=== PATIENT | female | born 1935 | race Caucasian/White ===

== ENCOUNTER → 2016-04-17 | Outpatient (REF) | payer MEDICARE, OTHER ==
[~2016-04-17] MED LIST: /WARF25TA PO; ASPI325T PO; ASPI81TA83 OR; ATEN50TA2 OR; ATEN50TA2 PO; DETR4CAP OR; DETR4CAP10 PO; HYDR10T PO; HYDR25TA8 OR; LASI20TA PO; LEVO2TA PO; MILKSUS PO; OXYC10TA56 OR; PERC5TAB6 PO; PERC5TAB8 OR; PERC5TAB8 PO; PERC7.5T8 PO; TYL PO; VITA200028 PO; XANA0.25 OR; XANA0.25 PO; XARE20TA PO; biofreeze TOP; synthroid
[2016-04-17 16:03] LABS: CREATININE FOR GFR 1.02 MG/DL (0.55-1.02); GLOMERULAR FILTRATION RATE 55.7 (>39)
== END ==
LOC: M LABDRAW1 15:32
PROVIDERS: ATTEND Physical Medicine & Rehabilitation
DX: M47.896 Other spondylosis, lumbar region (principal)

== ENCOUNTER → 2016-10-18 | Outpatient (REF) | payer MEDICARE, OTHER ==
[~2016-10-18] MED LIST changes: +AVEL1TAB3 PO; +DETR4CAP PO; -DETR4CAP10 PO; +DRIS50002 PO; +ELIQ2.5T PO; +FURO20TA2 PO; +HYDR-643 PO; -HYDR10T PO; +LEVO25TA5 PO; +PERC5TAB12 PO; -PERC5TAB6 PO; +PRIL20TA2 PO; +TOLT1CAP; +UNKNOWN ANTIBIOTIC PB
== END ==
LOC: M LAB REF 12:56
PROVIDERS: ATTEND Physician Assistant
DX: N39.0 Urinary tract infection, site not specified (principal)

== ENCOUNTER → 2016-10-31 | Outpatient (REF) | payer MEDICARE, OTHER ==
[2016-10-31 17:57] LABS: INR 1.06
== END ==
LOC: M LABDRAW1 15:46
PROVIDERS: ATTEND Physical Medicine & Rehabilitation
DX: Z01.818 Encounter for other preprocedural examination (principal); M43.16 Spondylolisthesis, lumbar region

== ENCOUNTER → 2016-12-25 | Outpatient (REF) | payer MEDICARE, OTHER ==
[2016-12-25 15:57] LABS: BASO % 0.3 % (0.0-1.0); EOS % 0.3 % (0.0-3.0); IMMATURE GRANULOCYTE % 0.2 % (0-0); LYMPH # 0.4 10^3/uL (1.5-4.5); LYMPH % 6.5 % (24.0-44.0); MEAN CORPUSCULAR HEMOGLOBIN 39.5 pg (27.0-33.0); MEAN CORPUSCULAR HGB CONC 34.8 g/dl (32.0-36.5); MONO # 0.4 10^3/uL (0.0-0.8); MONO % 6.2 % (0.0-5.0); NEUTROPHILS # 5.3 10^3/uL (1.8-7.7); NEUTROPHILS % 86.5 % (36.0-66.0); PLATELET COUNT, AUTOMATED 128 10^3/uL (150-450); RED CELL DISTRIBUTION WIDTH 12.8 % (11.5-14.5); WHITE BLOOD COUNT 6.1 10^3/uL (4.0-10.0)
[2016-12-25 16:08] LABS: ADD MORPHOLOGY? YES; MEAN CORPUSCULAR VOLUME 113.4 fl (80.0-96.0); POSITIVE MORPH POS FLAG
[2016-12-25 16:33] LABS: ALBUMIN 3.6 GM/DL (3.2-5.2); ALKALINE PHOSPHATASE 95 U/L (45-117); ALT/SGPT 16 U/L (12-78); ANION GAP 6 MEQ/L (8-16); AST/SGOT 20 U/L (15-37); BILIRUBIN,TOTAL 2.5 MG/DL (0.2-1.0); BLOOD UREA NITROGEN 13 MG/DL (7-18); CALCIUM LEVEL 8.5 MG/DL (8.8-10.2); CARBON DIOXIDE LEVEL 31 MEQ/L (21-32); CHLORIDE LEVEL 96 MEQ/L (98-107); CREATININE FOR GFR 0.81 MG/DL (0.55-1.02); GLOMERULAR FILTRATION RATE > 60.0 (>32); GLUCOSE, FASTING 86 MG/DL (83-110); POTASSIUM SERUM 4.1 MEQ/L (3.5-5.1); SODIUM LEVEL 133 MEQ/L (136-145); TOTAL PROTEIN 6.6 GM/DL (6.4-8.2)
[2016-12-25 17:23] LABS: ANISOCYTOSIS 2+
== END ==
LOC: M LABDRAW1 14:30
PROVIDERS: ATTEND Family Medicine
DX: E03.9 Hypothyroidism, unspecified (principal); I10 Essential (primary) hypertension

== ENCOUNTER → 2016-12-26 | Outpatient (REF) | payer MEDICARE, OTHER | LOC: M LAB REF 13:09 | PROVIDERS: ATTEND Family Medicine | DX: N39.0 Urinary tract infection, site not specified (principal); R32 Unspecified urinary incontinence ==

== ENCOUNTER → 2017-01-22 | Outpatient (CLI) | payer MEDICARE, OTHER ==
[2017-01-22 16:09] LABS: ALBUMIN 3.5 GM/DL (3.2-5.2); ALBUMIN/GLOBULIN RATIO 1.09 (1.00-1.93); ALKALINE PHOSPHATASE 91 U/L (45-117); ALT/SGPT 15 U/L (12-78); ANION GAP 7 MEQ/L (8-16); AST/SGOT 20 U/L (7-37); BILIRUBIN,TOTAL 1.1 MG/DL (0.2-1.0); BLOOD UREA NITROGEN 14 MG/DL (7-18); CALCIUM LEVEL 8.7 MG/DL (8.8-10.2); CARBON DIOXIDE LEVEL 31 MEQ/L (21-32); CHLORIDE LEVEL 97 MEQ/L (98-107); CREATININE FOR GFR 0.83 MG/DL (0.55-1.02); GLOMERULAR FILTRATION RATE > 60.0 (>32); GLUCOSE, FASTING 96 MG/DL (83-110); POTASSIUM SERUM 3.9 MEQ/L (3.5-5.1); SODIUM LEVEL 135 MEQ/L (136-145); TOTAL PROTEIN 6.7 GM/DL (6.4-8.2)
== END ==
LOC: M LABDRAW1 13:56
PROVIDERS: ATTEND Internal Medicine Cardiovascular Disease
DX: I48.91 Unspecified atrial fibrillation (principal)

== ENCOUNTER → 2017-01-29 | Outpatient (CLI) | payer MEDICARE, OTHER ==
[~2017-01-29] MED LIST changes: +GLUCAGON FOR INJ 1 MG VIAL (J1610) As Ordered ONE; +ISOVUE-370 76% 100ML VIAL (Q9967) As Ordered ONE; +VoLumen 0.1% SUSPENSION 450ML BOTTLE As Ordered ONE
--- NOTE | 2017-01-29 15:12 | REP ---
Clinical: Abnormal findings on prior imaging study. Technique: Axial contrast enhanced images from the lung bases to the pubic symphysis using 100 ml Isovue 370 intravenous contrast material and the oral contrast as per enterography protocol. Coronal and sagittal re-formations obtained. Comparison: 12/29/2016. Findings: Satisfactory intraluminal opacification of the enteric system is appreciated. A large hiatal hernia is identified measuring approximately 8.8 x 5.9 cm diameter and 8.2 cm in craniocaudal length. The small bowel is normal in appearance and without mural thickening or perienteric inflammatory changes. The colon demonstrates scattered diverticulosis and significant sigmoid diverticulosis without evidence for acute diverticulitis. Pelvis demonstrates partially collapsed normal appearing bladder and age-appropriate uterus/adnexa with partially calcified myomatous changes. No free air. No free fluid. Liver, spleen, pancreas, and bilateral adrenal glands are normal. The kidneys demonstrate chronic old cortical atrophic changes but with normal enhancement and no evidence for perinephric stranding or hydroureteronephrosis. The patient is status post cholecystectomy with compensatory biliary ductal dilatation. No ascites. No free air. No adenopathy. Musculoskeletal structures demonstrate degenerative changes without focal osseous abnormality. Atherosclerotic changes to the vasculature noted without aneurysm. Lung bases demonstrate chronic fibroatelectatic changes and scarring. Impression: 1. With the exception of diffuse diverticulosis and large hiatal hernia, the enteric system is grossly unremarkable. 2. Cholecystectomy and compensatory biliary ductal dilatation. 3. Degenerating myomatous changes to the uterus. 4. No acute abdominopelvic pathology. No free fluid. No adenopathy. Signed by Jason Matos MD 01/29/2017 03:03 P
== END ==
LOC: M RAD 13:04
PROVIDERS: ATTEND Internal Medicine Gastroenterology
DX: R93.3 Abnormal findings on diagnostic imaging of other parts of digestive tract (principal)
CPT/HCPCS: 74177; J1610; Q9967

== ENCOUNTER → 2017-02-17 | Outpatient (REF) | payer MEDICARE, OTHER ==
[~2017-02-17] MED LIST changes: -GLUCAGON FOR INJ 1 MG VIAL (J1610) As Ordered ONE; -ISOVUE-370 76% 100ML VIAL (Q9967) As Ordered ONE; -VoLumen 0.1% SUSPENSION 450ML BOTTLE As Ordered ONE
[2017-02-17 15:40] LABS: BASO % 1.3 % (0.0-1.0); EOS # 0.2 10^3/uL (0.0-0.50); EOS % 4.7 % (0.0-3.0); IMMATURE GRANULOCYTE % 0.3 % (0-0); LYMPH # 0.7 10^3/uL (1.5-4.5); LYMPH % 20.9 % (24.0-44.0); MEAN CORPUSCULAR HEMOGLOBIN 36.2 pg (27.0-33.0); MEAN CORPUSCULAR HGB CONC 34.3 g/dl (32.0-36.5); MEAN CORPUSCULAR VOLUME 105.5 fl (80.0-96.0); MONO # 0.4 10^3/uL (0.0-0.8); MONO % 12.7 % (0.0-5.0); NEUTROPHILS # 1.9 10^3/uL (1.8-7.7); NEUTROPHILS % 60.1 % (36.0-66.0); PLATELET COUNT, AUTOMATED 143 10^3/uL (150-450); RED CELL DISTRIBUTION WIDTH 15.6 % (11.5-14.5); RETIC HEMOGLOBIN EQUIVALENT 42.7 pg (24-36); RETICULOCYTE % 1.5 % (0.5-1.5); WHITE BLOOD COUNT 3.2 10^3/uL (4.0-10.0)
[2017-02-17 16:08] LABS: PERCENT SATURATION 56.3 % (13.2-45.0)
== END ==
LOC: M LABDRAW1 15:11
PROVIDERS: ATTEND Family Medicine
DX: D64.9 Anemia, unspecified (principal)

== ENCOUNTER 2017-09-20 17:39 | Emergency (ER) | payer MEDICARE, OTHER ==
[2017-09-20 18:58] LABS: BASO # 0.1 10^3/uL (0.0-0.2); BASO % 1.2 % (0.0-1.0); EOS # 0.1 10^3/uL (0.0-0.50); EOS % 1.4 % (0.0-3.0); HEMATOCRIT 36.1 % (36.0-47.0); HEMOGLOBIN 12.8 g/dl (12.0-15.5); IMMATURE GRANULOCYTE % 0.2 % (0-3.0); LYMPH # 0.5 10^3/uL (1.5-4.5); LYMPH % 9.5 % (24.0-44.0); MEAN CORPUSCULAR HGB CONC 35.5 g/dl (32.0-36.5); MEAN CORPUSCULAR VOLUME 104.3 fl (80.0-96.0); MONO # 0.4 10^3/uL (0.0-0.8); MONO % 7.5 % (0.0-5.0); NEUTROPHILS # 4.1 10^3/uL (1.8-7.7); NEUTROPHILS % 80.2 % (36.0-66.0); PLATELET COUNT, AUTOMATED 173 10^3/uL (150-450); RED BLOOD COUNT 3.46 10^6/uL (4.00-5.40); RED CELL DISTRIBUTION WIDTH 13.2 % (11.5-14.5); WHITE BLOOD COUNT 5.1 10^3/uL (4.0-10.0)
[2017-09-20 19:15] LABS: INR 1.11; PROTHROMBIN TIME 14.4 SECONDS (12.1-14.4)
[2017-09-20 19:27] LABS: ANION GAP 7 MEQ/L (8-16); BLOOD UREA NITROGEN 19 MG/DL (7-18); CALCIUM LEVEL 8.3 MG/DL (8.8-10.2); CARBON DIOXIDE LEVEL 29 MEQ/L (21-32); CHLORIDE LEVEL 96 MEQ/L (98-107); CPK CREATINE PHOSPHOKINASE 277 U/L (26-192); CREATININE FOR GFR 1.06 MG/DL (0.55-1.30); FREE T4 1.12 NG/DL (0.76-1.46); GLOMERULAR FILTRATION RATE 53.1 (>32); GLUCOSE, FASTING 104 MG/DL (70-100); MAGNESIUM LEVEL 1.6 MG/DL (1.8-2.4); POTASSIUM SERUM 4.1 MEQ/L (3.5-5.1); SODIUM LEVEL 132 MEQ/L (136-145); TROPONIN I < 0.02 NG/ML (< 0.10)
[2017-09-20 19:33] LABS: CK-MB VALUE MASS 4.2 NG/ML (<3.6); MB/CK RELATIVE INDEX 1.51 (< OR =4)
[2017-09-20] MEDS: MAGNESIUM OXIDE 400 MG TAB (MAG-OX) PO (20:51)
== END 2017-09-20 23:33 | disposition home or self-care (01) ==
LOC: M ED 23:33
DX: S00.83XA Contusion of other part of head, initial encounter (principal); S90.31XA Contusion of right foot, initial encounter; S80.01XA Contusion of right knee, initial encounter; E83.42 Hypomagnesemia; R26.9 Unspecified abnormalities of gait and mobility; W19.XXXA Unspecified fall, initial encounter; Y92.098 Other place in other non-institutional residence as the place of occurrence of the external cause; I48.91 Unspecified atrial fibrillation; I10 Essential (primary) hypertension; E07.9 Disorder of thyroid, unspecified; F41.9 Anxiety disorder, unspecified; M19.90 Unspecified osteoarthritis, unspecified site; M51.9 Unspecified thoracic, thoracolumbar and lumbosacral intervertebral disc disorder; Z88.5 Allergy status to narcotic agent; Z88.8 Allergy status to other drugs, medicaments and biological substances; Z91.018 Allergy to other foods; Z79.899 Other long term (current) drug therapy; Z79.01 Long term (current) use of anticoagulants
CPT/HCPCS: 73564

== ENCOUNTER → 2017-10-03 | Outpatient (REF) | payer MEDICARE, OTHER ==
[2017-10-03 17:04] LABS: ANION GAP 9 MEQ/L (8-16); BLOOD UREA NITROGEN 19 MG/DL (7-18); CALCIUM LEVEL 8.9 MG/DL (8.8-10.2); CARBON DIOXIDE LEVEL 30 MEQ/L (21-32); CHLORIDE LEVEL 100 MEQ/L (98-107); CREATININE FOR GFR 1.21 MG/DL (0.55-1.30); GLOMERULAR FILTRATION RATE 45.6 (>32); GLUCOSE, FASTING 95 MG/DL (70-100); MAGNESIUM LEVEL 1.8 MG/DL (1.8-2.4); POTASSIUM SERUM 4.1 MEQ/L (3.5-5.1); SODIUM LEVEL 139 MEQ/L (136-145)
== END ==
LOC: M LABDRAW1 15:16
DX: R60.0 Localized edema (principal)
CPT/HCPCS: 83735

== ENCOUNTER → 2018-02-19 | Outpatient (CLI) | payer MEDICARE, OTHER ==
[2018-02-19 16:57] LABS: ANION GAP 7 MEQ/L (8-16); BLOOD UREA NITROGEN 21 MG/DL (7-18); CALCIUM LEVEL 8.5 MG/DL (8.8-10.2); CARBON DIOXIDE LEVEL 30 MEQ/L (21-32); CHLORIDE LEVEL 103 MEQ/L (98-107); CREATININE FOR GFR 0.92 MG/DL (0.55-1.30); GLOMERULAR FILTRATION RATE > 60.0 (>32); GLUCOSE, FASTING 81 MG/DL (70-100); SODIUM LEVEL 140 MEQ/L (136-145)
[2018-02-19 17:10] LABS: BASO # 0.1 10^3/uL (0.0-0.2); BASO % 1.2 % (0.0-1.0); EOS # 0.1 10^3/uL (0.0-0.50); EOS % 1.4 % (0.0-3.0); HEMATOCRIT 40.8 % (36.0-47.0); HEMOGLOBIN 13.3 g/dl (12.0-15.5); IMMATURE GRANULOCYTE % 0.5 % (0-3.0); LYMPH # 1.3 10^3/uL (1.5-4.5); LYMPH % 31.2 % (24.0-44.0); MEAN CORPUSCULAR HEMOGLOBIN 32.2 pg (27.0-33.0); MEAN CORPUSCULAR HGB CONC 32.6 g/dl (32.0-36.5); MEAN CORPUSCULAR VOLUME 98.8 fl (80.0-96.0); MONO # 0.6 10^3/uL (0.0-0.8); MONO % 13.4 % (0.0-5.0); NEUTROPHILS # 2.2 10^3/uL (1.8-7.7); NEUTROPHILS % 52.3 % (36.0-66.0); PLATELET COUNT, AUTOMATED 202 10^3/uL (150-450); RED BLOOD COUNT 4.13 10^6/uL (4.00-5.40); RED CELL DISTRIBUTION WIDTH 13.4 % (11.5-14.5); WHITE BLOOD COUNT 4.2 10^3/uL (4.0-10.0)
== END ==
LOC: M WUC 13:17
DX: J98.4 Other disorders of lung (principal); I51.7 Cardiomegaly; K46.9 Unspecified abdominal hernia without obstruction or gangrene; M51.34 Other intervertebral disc degeneration, thoracic region; M85.88 Other specified disorders of bone density and structure, other site; J06.9 Acute upper respiratory infection, unspecified; Z96.611 Presence of right artificial shoulder joint
CPT/HCPCS: 80048

== ENCOUNTER 2018-10-27 20:03 | Emergency (ER) | payer MEDICARE, OTHER ==
[~2018-10-27] VITALS: Ht 149.9 cm; Wt 61.4 kg
[~2018-10-27 20:03] MED LIST changes: -/WARF25TA PO; +ASPI-1 PO; -ASPI325T PO; +COUM1TAB18 PO; -DRIS50002 PO; +DRIS50003 PO; -LASI20TA PO; +LASI20TA3 PO; -TOLT1CAP; +TOLT4CAP3
[2018-10-27 21:43] LABS: BASO % 0.6 % (0.0-1.0); EOS # 0.1 10^3/uL (0.0-0.50); EOS % 1.2 % (0.0-3.0); HEMATOCRIT 42.1 % (36.0-47.0); LYMPH # 0.6 10^3/uL (1.5-4.5); LYMPH % 12.2 % (24.0-44.0); MEAN CORPUSCULAR HEMOGLOBIN 34.9 pg (27.0-33.0); MEAN CORPUSCULAR HGB CONC 33.3 g/dl (32.0-36.5); MONO # 0.4 10^3/uL (0.0-0.8); MONO % 7.6 % (0.0-5.0); NEUTROPHILS # 3.9 10^3/uL (1.8-7.7); PLATELET COUNT, AUTOMATED 140 10^3/uL (150-450); RED BLOOD COUNT 4.01 10^6/uL (4.00-5.40)
[2018-10-27 21:54] LABS: INR 1.29; PROTHROMBIN TIME 15.8 SECONDS (11.8-14.0)
[2018-10-27 22:08] LABS: ALBUMIN 3.5 GM/DL (3.2-5.2); ALT/SGPT 13 U/L (12-78); BILIRUBIN,DIRECT 0.4 MG/DL (0.0-0.2); BILIRUBIN,TOTAL 1.1 MG/DL (0.2-1.0); BLOOD UREA NITROGEN 30 MG/DL (7-18); CALCIUM LEVEL 9.1 MG/DL (8.8-10.2); CARBON DIOXIDE LEVEL 34 MEQ/L (21-32); CHLORIDE LEVEL 93 MEQ/L (98-107); CK-MB VALUE MASS < 1.0 NG/ML (<3.6); CPK CREATINE PHOSPHOKINASE 45 U/L (26-192); CREATININE FOR GFR 1.96 MG/DL (0.55-1.30); GLUCOSE, FASTING 107 MG/DL (70-100); MB/CK RELATIVE INDEX 2.22 (< OR =4); POTASSIUM SERUM 4.1 MEQ/L (3.5-5.1); SODIUM LEVEL 135 MEQ/L (136-145); TOTAL PROTEIN 6.8 GM/DL (6.4-8.2); TROPONIN I < 0.02 NG/ML (< 0.10)
[2018-10-27] MEDS ORDERED: NS 1,000 ML IV ONE (22:30)
--- NOTE | 2018-10-27 22:38 | REPVR ---
EXAM: CT Chest Without Contrast EXAM DATE/TIME: 10/27/2018 10:00 PM CLINICAL HISTORY: 83 years old, female; Injury or trauma; Fall; Initial encounter; Blunt trauma (contusions or hematomas); Injury details: Pain in the left side of ribs and t-spine TECHNIQUE: Imaging protocol: Axial computed tomography images of the chest without intravenous contrast. 3D rendering: MIP reconstructed images were created and reviewed. Radiation optimization: All CT scans at this facility use at least one of these dose optimization techniques: automated exposure control; mA and/or kV adjustment per patient size (includes targeted exams where dose is matched to clinical indication); or iterative reconstruction. COMPARISON: CT ANGIO CHEST 12/29/2016 5:40 PM FINDINGS: Lungs: Mild bibasilar fibro-atelectatic change, left greater than right with question of minimal left base infiltrates. Pleural space: Unremarkable. No pneumothorax. No pleural effusion. Heart: The left atrium measures 5.0 cm in its AP dimension. Mediastinum: Large hiatal hernia. Pulmonary arteries: The main pulmonary artery measures 29 mm. Aorta: The ascending thoracic aorta measures 33 mm. Lymph nodes: Unremarkable. No enlarged lymph nodes. Bones/joints: Prosthetic right humeral head. Degenerative changes of the thoracic spine with areas of segmental ankylosis or congenital fusion. No compression fracture is seen. Soft tissues: Irregular nodule with stranding in the left breast which is slightly increased since the prior study measuring approximately 2.2 x 1.9 x 2.4 cm. Gallbladder and bile ducts: Status post cholecystectomy. IMPRESSION: 1. Decreased bibasilar infiltrates since 12/29/2016. Mild residual bibasilar fibro-atelectatic change remains, left greater than right with question of minimal left base infiltrates. 2. Irregular left breast nodule measuring 2.2 x 1.9 x 2.4 cm which appears increased since the prior study. Correlation with mammography may be of benefit. 3. Large hiatal hernia which is similar. 4. Status post cholecystectomy. 5. Mild cardiomegaly which is similar. 6. Degenerative changes of the thoracic spine with areas of segmental ankylosis or congenital fusion. Electronically signed by: Simone Myers On 10/27/2018 22:38:12 PM
[2018-10-28 00:18] VITALS: BP 136/79
--- NOTE | 2018-10-28 08:22 | REP ---
PA and lateral chest: Comparison is 02/19/2018. There is no pneumothorax, hemothorax or pulmonary contusion. There is a small linear parenchymal scar peripherally in the left lung, unchanged. There is a large fixed hiatal hernia containing an air-fluid level, unchanged. The the Cardiac size appears enlarged, unchanged. The robyn and mediastinum are unremarkable. Bony thorax demonstrates diffuse demineralization and right shoulder arthroplasty, but are otherwise unremarkable. Impression: There are no acute cardiopulmonary findings. There are chronic changes as described. Electronically Signed by Daniel Cheema MD 10/28/2018 08:14 A
--- NOTE | 2018-10-28 10:47 | ED PDOC ---
Post-Departure Follow-Up ct chest faxed to dr angela for fu of all findings. Alisha Mcintyre MD Oct 28, 2018 10:47
== END 2018-10-28 00:26 | disposition home or self-care (01) ==
LOC: M ED 20:03
DX: S20.222A Contusion of left back wall of thorax, initial encounter (principal); W19.XXXA Unspecified fall, initial encounter; Y92.096 Garden or yard of other non-institutional residence as the place of occurrence of the external cause; R94.6 Abnormal results of thyroid function studies; I10 Essential (primary) hypertension; G47.33 Obstructive sleep apnea (adult) (pediatric); Z88.8 Allergy status to other drugs, medicaments and biological substances; Z88.5 Allergy status to narcotic agent; Z91.018 Allergy to other foods; Z79.899 Other long term (current) drug therapy; Z79.01 Long term (current) use of anticoagulants

== ENCOUNTER → 2019-01-08 | Outpatient (REF) | payer MEDICARE, OTHER ==
[2019-01-08 15:43] LABS: BASO # 0.1 10^3/uL (0.0-0.2); BASO % 1.2 % (0.0-1.0); EOS # 0.1 10^3/uL (0.0-0.5); EOS % 1.8 % (0.0-3.0); HEMATOCRIT 37.5 % (36.0-47.0); HEMOGLOBIN 12.5 g/dl (12.0-15.5); LYMPH # 1.2 10^3/uL (1.5-5.0); LYMPH % 20.3 % (24.0-44.0); MEAN CORPUSCULAR HEMOGLOBIN 35.6 pg (27.0-33.0); MEAN CORPUSCULAR HGB CONC 33.3 g/dl (32.0-36.5); MEAN CORPUSCULAR VOLUME 106.8 fl (80.0-96.0); MONO # 0.5 10^3/uL (0.0-0.8); MONO % 8.8 % (0.0-5.0); NEUTROPHILS # 3.8 10^3/uL (1.5-8.5); NEUTROPHILS % 67.5 % (36.0-66.0); PLATELET COUNT, AUTOMATED 133 10^3/uL (150-450); RED BLOOD COUNT 3.51 10^6/uL (4.00-5.40); WHITE BLOOD COUNT 5.7 10^3/uL (4.0-10.0)
[2019-01-08 15:53] LABS: CHOLESTEROL RISK RATIO 2.506 (<5); THYROID STIMULATING HORMONE 3.96 uIU/ML (0.358-3.740)
[2019-01-08 16:15] LABS: HEMOGLOBIN A1c 4.7 %
== END ==
LOC: M LABDRAW1 13:29
PROVIDERS: ATTEND Family Medicine
DX: I10 Essential (primary) hypertension (principal); E03.9 Hypothyroidism, unspecified

== ENCOUNTER → 2019-04-20 | Outpatient (REF) | payer MEDICARE, OTHER ==
[2019-04-20 18:52] LABS: FREE T4 1.21 NG/DL (0.76-1.46); THYROID STIMULATING HORMONE 6.3 uIU/ML (0.358-3.740)
== END ==
LOC: M LABDRAW1 17:00
PROVIDERS: ATTEND Family Medicine
DX: E03.9 Hypothyroidism, unspecified (principal)

== ENCOUNTER → 2019-08-26 | Outpatient (CLI) | payer MEDICARE, OTHER ==
[~2019-08-26] MED LIST changes: +ATEN25TA PO; +BACT800T5 PO; +CIPR-250 PO; +MECL12.590 PO; +MECL25CH45 PO; +OMEP-221 PO; +SULF1TAB93 PO; +SYNT50TA PO; +TOLT4CAP3 PO; +VITA50005 PO
[2019-08-26 16:55] LABS: FREE T4 1.39 NG/DL (0.76-1.46); THYROID STIMULATING HORMONE 1.68 uIU/ML (0.358-3.740)
== END ==
LOC: M WUC 13:17
PROVIDERS: ATTEND Family Medicine
DX: E03.9 Hypothyroidism, unspecified (principal)

== ENCOUNTER 2020-03-18 14:03 | Emergency (ER) | payer MEDICARE, OTHER ==
[~2020-03-18] VITALS: Ht 147.3 cm; Wt 58.2 kg
[~2020-03-18 14:03] MED LIST changes: -ATEN25TA PO; -BACT800T5 PO; -CIPR-250 PO; -MECL12.590 PO; -MECL25CH45 PO; -OMEP-221 PO; -SULF1TAB93 PO; -SYNT50TA PO; -TOLT4CAP3 PO; -VITA50005 PO
[2020-03-18] MEDS ORDERED: MECL25CH45 PO (14:11)
[2020-03-18] MEDS ORDERED: ATEN25TA PO (14:11)
[2020-03-18] MEDS ORDERED: NS 1,000 ML IV ONE (15:15)
--- NOTE | 2020-03-18 15:24 | REP ---
INDICATION: weakness COMPARISON: 10/27/2018 TECHNIQUE: Portable AP view of the chest FINDINGS: The mediastinum and cardiac silhouette are stable and again demonstrates large hiatal hernia. The lung bartlett demonstrate stable chronic changes. No acute consolidation, effusion, or pneumothorax appreciated. Skeletal structures are stable including osteopenia and degenerative changes along with right shoulder replacement. IMPRESSION: Large hiatal hernia and chronic changes similar to prior examination no obvious acute consolidation. <Electronically signed by Jason Matos > 03/18/20 [id number]
[2020-03-18 16:33] LABS: BASO % 0.4 % (0.0-1.0); EOS % 1.1 % (0.0-3.0); HEMATOCRIT 34.8 % (36.0-47.0); HEMOGLOBIN 11.6 g/dl (12.0-15.5); LYMPH # 0.4 10^3/uL (1.5-5.0); LYMPH % 14.9 % (24.0-44.0); MEAN CORPUSCULAR HEMOGLOBIN 36.9 pg (27.0-33.0); MEAN CORPUSCULAR HGB CONC 33.3 g/dl (32.0-36.5); MEAN CORPUSCULAR VOLUME 110.8 fl (80.0-96.0); MONO # 0.2 10^3/uL (0.0-0.8); MONO % 8.2 % (0.0-5.0); NEUTROPHILS # 2.1 10^3/uL (1.5-8.5); RED BLOOD COUNT 3.14 10^6/uL (4.00-5.40); WHITE BLOOD COUNT 2.8 10^3/uL (4.0-10.0)
[2020-03-18 17:05] LABS: ALBUMIN 2.6 GM/DL (3.2-5.2); BILIRUBIN,DIRECT 0.5 MG/DL (0.0-0.2); BILIRUBIN,TOTAL 1.1 MG/DL (0.2-1.0); CALCIUM LEVEL 7.7 MG/DL (8.8-10.2); CREATININE FOR GFR 1.17 MG/DL (0.55-1.30); FREE T4 1.48 NG/DL (0.76-1.46); THYROID STIMULATING HORMONE 1.26 uIU/ML (0.358-3.740); TOTAL PROTEIN 5.7 GM/DL (6.4-8.2)
[2020-03-18] MEDS ORDERED: LIDOCAINE 2% 5ML JELLY UROJET TOP ONE (17:15)
[2020-03-18 17:17] LABS: PLATELET COUNT, AUTOMATED 68 10^3/uL (150-450)
[2020-03-18] MEDS ORDERED: CIPR-250 PO (18:35)
--- NOTE | 2020-03-18 19:20 | ECGEPIP ---
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
[2020-03-18 19:43] VITALS: BP 119/62
== END 2020-03-18 20:06 | disposition home or self-care (01) ==
LOC: M ED 14:03 → EEVIPCON 14:03 → M ED 20:06
DX: N39.0 Urinary tract infection, site not specified (principal); D72.819 Decreased white blood cell count, unspecified; I48.91 Unspecified atrial fibrillation; R94.31 Abnormal electrocardiogram [ECG] [EKG]; R53.1 Weakness; I10 Essential (primary) hypertension; K44.9 Diaphragmatic hernia without obstruction or gangrene; Z79.01 Long term (current) use of anticoagulants; Z79.899 Other long term (current) drug therapy; Z88.5 Allergy status to narcotic agent; Z88.8 Allergy status to other drugs, medicaments and biological substances; Z91.018 Allergy to other foods

== ENCOUNTER 2020-03-24 13:46 | Inpatient (IN) | payer MEDICARE, OTHER ==
[~2020-03-24] VITALS: Ht 149.9 cm; Wt 59.0 kg
[~2020-03-24 13:46] MED LIST changes: +ATEN25TA PO; +CIPR-250 PO; +MECL25CH45 PO
--- OUTSIDE RECORDS SUMMARY | 2020-03-24 14:03 | CCD | Continuity of Care Document ---
Author Author Courtney PORTER M.D Organization Unknown Address [address] [place] [address] Phone [phone] Care Team Providers Care High Value Associate Name Role Phone Eduardo Collins Jr., MD AUTM [phone] Xavier Evans M.D. AUTM [phone] Kael Ritter JR., M.D. AUTM [facility] AUTM Problems Active Problems Provider Date Essential hypertension Ambar Porter M.D. Onset: 07/23 Essential hypertension Ambar Porter M.D. Onset: 12/15 Social History Type Date Description Comments Sex Unknown Tobacco Use Start: Unknown End: Unknown denies cigarette use Tobacco Use Start: Unknown Never Used Smokeless Tobacco ETOH Use Consumes 2 glasses of wine per d ay Tobacco Use Start: Unknown Patient has never smoked Recreational Drug Use Denies Drug Use Smoking Status Reviewed: 11/24/19 Patient has never smoked Exercise Type/Frequency Does not exercise Tattoo/Piercing NOne Sun Exposure Minimum amount of sun exposure Sun Exposure Does not use sunscreen covers wi th long clothing Seat Belt/Car Seat Always uses seat belt Smoke Alarms Yes Smoke Alarms Carbon Monoxide Detector: No Allergies, Adverse Reactions, Alerts Active Allergies Reaction Severity Comments Date Darvocet 04/09/2004 Caffeine 04/09/2004 Lipitor muscle aches and pains 10/30 Codeine Sulfate BP drops and is anaphylac tic 04/04/2008 Ultram hypotyension 01/19/2010 Hair Dye Contact dermatitis, Urticaria, redness and swelling Mo derate 06/15/2014 Xarelto excessive bleeding of gums 0 04/28/2015 Doxycycline severe dizziness 02/23/2018 Medications Active Medications SIG Qnty Indications Ordering Provide r Date Levothyroxine Sodium 50mcg Tablets take one tablet by mouth every day 90tabs E03.9 Ambar Porter M.D. 04/21/2019 Vitamin D (Ergocalciferol) 1.25mg (60021 Ut) Capsules Take One Capsule By Mouth Once a Week 12caps I48.1 Ambar Porter M.D. 02/16/2019 Meclizine HCL 12.5mg Tablets Take One Tablet By Mouth Three Times Daily as Needed For dizziness 90tabs H8 1.10 Ambar Porter M.D. 12/25/2018 Atenolol 25mg Tablets take 2 tablets by mouth every day 180tabs Ambar Porter M.D. 018 Tolterodine Tartrate ER 4mg Caps E R 24HR take one capsule by mouth once daily 90caps N32.81 Katie Burroughs, [facility] 01/09/2015 Xanax 0.25mg Tablets 1 tab by mouth every 6 h as needed 120tabs Ambar Porter M.D. 000 Hydroxyzine HCL 10mg Tablets Take One Tablet By Mouth Every Day 120tabs Ambar Porter M. D. Eliquis 2.5mg Tablets take one tablet by mouth twice daily 180tabs Ambar Porter M.D. Furosemide 20mg Tablets Take One Tablet By Mouth Every Day For Edema of ankles 30tabs Mariola Porter M.D. Omeprazole 40mg Capsules DR take one capsule by mouth every day 90caps Ambar Porter M .D. Immunizations CPT Code Status Date Vaccine Lot # [id number] Given 11/24/2019 Influenza Virus Vaccine, Quadrivalent,age 3 and up,multidose vial [id number] 48786 Given 12/07/2018 Influenza Virus Vaccine, Quadrivalent,age 3 and up,multidose vial 26194 Given 12/07/2018 Influenza Virus Vaccine, Quadrivalent,age 3 and up,multidose vial [id number] 36940 Given 12/03/2017 Influenza Virus Vaccine, Quadrivalent,age 3 and up,multidose vial [id number] 19447 Given 12/31/2016 Prevnar 13 For Adults 98975 Given 12/31/2016 Influenza Virus Vaccine, Quadrivalent,age 3 and up,multidose vial Q2038 Given 12/22/2015 Influenza Vaccine (Fluzone)( medicare) [id number] Q2038 Given 12/22/2015 Influenza Vaccine (Fluzone)( medicare) [id number] 37750 Given 04/20/2015 Prevnar 13 Q2038 Given 11/30/2014 Influenza Vaccine (Fluzone)( medicare) [id number] Q2038 Given 11/29/2013 Influenza Vaccine (Fluzone)( medicare) [id number] 49758 Given 11/19/2012 Influenza Vaccination [id number] Q2038 Given 11/19/2012 Influenza Vaccine (Fluzone)( medicare) Q2038 Given 12/04/2011 Influenza Vaccine (Fluzone)( medicare) 26897 Given 12/04/2011 Influenza Vaccination [id number] Q2038 Given 12/05/2010 Influenza Vaccine (Fluzone)( medicare) 33347 Given 11/07/2010 Zostavax 02942 Given 11/08/2009 Influenza Vaccination [id number] 33490 Given 11/30/2008 Influenza Vaccination [id number] 95696 Given 12/28/2007 Pneumococcal Vaccine [id number] 42953 Given 12/28/2007 Influenza Vaccination [id number] 51384 Given 12/30/2006 Influenza Vaccination [id number] 91777 Given 12/18/2005 Influenza Vaccination [id number] 95102 Given 12/07/2004 Influenza Vaccination [id number] 37369 Given 12/25/2001 Influenza Vaccine Vital Signs Date Vital Result Comment 11/24/2019 3:01pm BP Systolic 145 mmHg BP Diastolic 93 mmHg BP Systolic Recheck 127 mmHg recheck BP Diastolic Recheck 84 mmHg recheck Heart Rate 89 /min Body Temperature 98.2 F Respiratory Rate 18 /min Height 58 inches 4'10" Weight 133.50 lb O2 % BldC Oximetry 98 % [place] Body Weight 100 lb BMI (Body Mass Index) 27.9 kg/m2 09/15/2019 11:06am BP Systolic 147 mmHg BP Diastolic 102 mmHg BP Systolic Recheck 138 mmHg manual re check BP Diastolic Recheck 86 mmHg manual re check Heart Rate 99 /min Body Temperature 98.2 F Respiratory Rate 14 /min Height 58 inches 4'10" Weight 130.12 lb O2 % [facility] Oximetry 98 % [place] Body Weight 100 lb BMI (Body Mass Index) 27.2 kg/m2 Results Test Acquired Date Facility Test Result H/L Range Note Ua W/ Reflex To Culture 03/18/2020 [place] [address] [phone] Appearance, Urine RFX CLOUDY High Clear Color, Urine RFX YELLOW Normal Yellow PH,Urine RFX 5.0 units Normal 5.0-9.0 Specific Elaine Ur Auto RFX 1.010 Normal 1.002-1.035 Protein, Urine Auto RFX NEGATIVE mg/dL Normal Negative Glucose, Urine (Ua) Auto RFX NEGATIVE mg/dL Normal Negative Ketone, Urine Auto RFX TRACE mg/dL High Negative Urobilinogen, Urine Auto RFX 0.2 mg/dL Normal 0.0-2.0 Bilirubin, Urine Auto RFX NEGATIVE Normal Negative Nitrite, Urine Auto RFX NEGATIVE Normal Negative Leukocyte Esterase Ur Auto RFX 3+ High Negative Blood, Urine Blood RFX 1+ High Negative WBC, Urine Auto RFX 120 /HPF High 0-3 RBC, Urine Auto RFX 11 /HPF High 0-3 Bacteria, Urine Auto RFX 3+ High Negative Squam Epithelial Cell Ur Aurfx 2 /HPF Normal 0-6 Mucus, Urine RFX SMALL Normal Negative Hyaline Cast, Urine Auto RFX 12 /LPF Normal 0-1 Reflex Urine Culture 03/18/[address] [place] [address] [phone] Reflex Urine Culture FULL REPORT IN L <SEE NOTE> Norm al 1 Liver Profile 03/18/2020 [facility] [place] [address] [phone] Ast/Sgot 78 U/L High 7-37 Alt/SGPT 40 U/L Normal 12-78 Alkaline Phosphatase 123 U/L High 45-117 Bilirubin,Total 1.1 mg/dL High 0.2-1.0 Bilirubin,Direct 0.5 mg/dL High 0.0-0.2 Total Protein 5.7 GM/DL Low 6.4-8.2 Albumin 2.6 GM/DL Low 3.2-5.2 Albumin/Globulin Ratio 0.8 Low 1.2-2.2 Basic Metabolic Profile 03/18/2020 Patient Service [place], [place] [address] [phone] Glucose, Fasting 81 mg/dL Normal 70-100 Blood Urea Nitrogen 22 mg/dL High 7-18 Creatinine For GFR 1.17 mg/dL Normal 0.55-1.30 Glomerular Filtration Rate 47.0 Normal >32 2 Sodium Level 132 mEq/L Low 136-145 Potassium Serum 4.0 mEq/L Normal 3.5-5.1 Chloride Level 97 mEq/L Low 98-107 Carbon Dioxide Level 27 mEq/L Normal 21-32 Anion Gap 8 mEq/L Normal 8-16 Calcium Level 7.7 mg/dL Low 8.8-10.2 Laboratory test finding 03/18/2020 [place] [address] [phone] Thyroid Stimulating Hormone 1.260 uIU/ML Normal 0. 358-3.740 Free T4 1.48 ng/dL High 0.76-1.46 CBC With Differential 03/18/2020 [place] [address] [phone] White Blood Count 2.8 10 Low 4.0-10.0 Red Blood Count 3.14 10 Low 4.00-5.40 Hemoglobin 11.6 g/dL Low 12.0-15.5 Hematocrit 34.8 % Low 36.0-47.0 Mean Corpuscular Volume 110.8 fl High 80.0-96.0 Mean Corpuscular Hemoglobin 36.9 pg High 27.0-33.0 Mean Corpuscular HGB Conc 33.3 g/dL Normal 32.0-36.5 Red Cell Distribution Width 15.7 % High 11.5-14.5 Platelet Count, Automated 68 10 Low 150-450 Neutrophils % 75.0 % High 36.0-66.0 Lymph % 14.9 % Low 24.0-44.0 [place] % 8.2 % High 0.0-5.0 Eos % 1.1 % Normal 0.0-3.0 Baso % 0.4 % Normal 0.0-1.0 Immature Granulocyte % 0.4 % Normal 0-3.0 Nucleated Red Blood Cell % 0.0 % Normal 0-0 Neutrophils # 2.1 10 Normal 1.5-8.5 Lymph # 0.4 10 Low 1.5-5.0 [place] # 0.2 10 Normal 0.0-0.8 Eos # 0.0 10 Normal 0.0-0.5 Baso # 0.0 10 Normal 0.0-0.2 Laboratory test finding 03/18/2020 Patient [facility] [place], [place] [id number] [phone] Immature Platelet Fraction 1.6 % Normal 0.0-9 .59 1 FULL REPORT IN LAB NOTES (Pura Cruz and Buffy). ORGANISM 1: E.COLI ESBL COLONY COUNT >100,000 ORGANISM 1: E.COLI ESBL E.COLI ESBL: REACTION TRIMETHOPRIM/SULFAMETHOXAZOLE IV 160mg TMP & 800mg SMXq6h <=20 S TRIMETHOPRIM/SULFAMETHOXAZOLE PO Bactrim DS Bid <=20 S AMPICILLIN IV 500mg q6h >=32 R AMPICILLIN PO 500mg q6h fasting >=32 R GENTAMICIN IV 80mg q8h >=16 R NITROFURANTOIN PO 100mg BID <=16 S CEFAZOLIN IV 1gm q8h >=64 R LEVOFLOXACIN IV 500mg qd >=8 R LEVOFLOXACIN PO 250mg qd >=8 R LEVOFLOXACIN PO 500mg qd >=8 R TOBRAMYCIN IV 80mg q8h >=16 R CEFTRIAXONE IV 1gm q24h 16 R CEFTAZIDIME IV 1gm q8h 4 R AMPICILLIN/SULBACTAM IV 1.5g q6h >=32 R PIPERACILLIN/TAZOBACTAM IV 2.25 gm q6h <=4 S AZTREONAM IV 1gm q8h 16 R ERTAPENEM IV 1gm qd <=0.5 S MEROPENEM IV 1 gm q8h <=0.25 S MEROPENEM IV 500 mg q8h <=0.25 S TIGECYCLINE IV 50mg q12h <=0.5 S CEFEPIME IV 1 gm q12h 2 R CEFEPIME IV 2 gm q12h 2 R EXTD BRD SPCTRM BETA LACTAMASE IV NEGATIVE FOR ESBL 2 Units are mL/min/1.73 m2 Chronic Kidney Disease Staging per NKF: Stage I & II GFR >=60 Normal to Mildly Decreased Stage III GFR 30-59 Moderately Decreased Stage IV GFR 15-29 Severely Decreased Stage V GFR <15 Very Little GFR Left ESRD GFR <15 on [employer] Procedures Description No Information Available Medical Devices Description No Information Available Encounters Type Date Location Provider Dx Diagnosis Office Visit 11/24/2019 2:30p Main Office Vilma Carlson PA S80.811A Abrasion, right lower leg, initial encou nter R60.0 Localized edema Z23 Encounter for immunization Assessments Date Code Description Provider 11/24/2019 S80.811A Abrasion, right lower leg, initi al encounter Vilma Carlson PA 11/24/2019 R60.0 Localized edema Yamile Carlson cia, PA 11/24/2019 Z23 Encounter for immunization Vilma Paul PA Plan of Treatment Future Appointment(s):* 03/22/2020 1:15 pm - Vilma Carlson PA at Main Office 11/24/2019 - Vilma Carlson PA* S80.811A Abrasion, right lower leg, initial encounter* Comments:* keep area clean, drystop neosporinmay cover when sleeping or wearing long pants * R60.0 Localized edema* Comments:* keep feet elevated when seated. * Z23 Encounter for immunization Functional Status Functional Condition Comment Date Status Bifocal glasses Active Independent with all ADL's Activ e Standard cane is used to ambulate Active Independent with all IADL's Acti ve Mental Status Mental Condition Comment Date Status Can Understand Information Activ e Cognitive Ability Not Impaired A ctive Referrals Description No Information Available
--- OUTSIDE RECORDS SUMMARY | 2020-03-24 14:03 | CCD | Continuity of Care Document ---
Author Author Courtney PORTER M.D Organization Unknown Address [address] [place] [address] Phone [phone] Care Team Providers Care Folder Taper Operator Name Role Phone Eduardo Collins Jr., MD AUTM [phone] Xavier Evans M.D. AUTM [phone] Kael Ritter JR., M.D. AUTM [phone] [facility] AUTM Problems Active Problems [...] Porter M.D. 04/21/2019 Vitamin D (Ergocalciferol) 1.25mg (56863 Ut) Capsules Take One Capsule By Mouth [...] mouth once daily 90caps N32.81 Katie Burroughs, [facility] 01/09/2015 Xanax 0.25mg Tablets 1 tab [...] CPT Code Status Date Vaccine Lot # 76848 Given 11/24/2019 Influenza Virus Vaccine, Quadrivalent,age 3 and up,multidose vial [id number] 23472 Given 12/07/2018 Influenza Virus Vaccine, Quadrivalent,age 3 and up,multidose vial 31784 Given 12/07/2018 Influenza Virus Vaccine, Quadrivalent,age 3 and up,multidose vial [id number] 85208 Given 12/03/2017 Influenza Virus Vaccine, Quadrivalent,age 3 and up,multidose vial [id number] 71130 Given 12/31/2016 Prevnar 13 For Adults 67043 Given 12/31/2016 Influenza Virus Vaccine, Quadrivalent,age 3 and up,multidose vial Q2038 Given 12/22/2015 Influenza Vaccine (Fluzone)( medicare) [id number] Q2038 Given 12/22/2015 Influenza Vaccine (Fluzone)( medicare) [id number] 27388 Given 04/20/2015 Prevnar 13 Q2038 Given 11/30/2014 Influenza Vaccine (Fluzone)( medicare) [id number] Q2038 Given 11/29/2013 Influenza Vaccine (Fluzone)( medicare) [id number] 68826 Given 11/19/2012 Influenza Vaccination [id number] Q2038 Given 11/19/2012 Influenza Vaccine (Fluzone)( medicare) Q2038 Given 12/04/2011 Influenza Vaccine (Fluzone)( medicare) 22097 Given 12/04/2011 Influenza Vaccination [id number] Q2038 Given 12/05/2010 Influenza Vaccine (Fluzone)( medicare) 66456 Given 11/07/2010 Zostavax 01393 Given 11/08/2009 Influenza Vaccination [id number] 59443 Given 11/30/2008 Influenza Vaccination [id number] 54020 Given 12/28/2007 Pneumococcal Vaccine [id number] 89077 Given 12/28/2007 Influenza Vaccination [id number] 27940 Given 12/30/2006 Influenza Vaccination [id number] 02750 Given 12/18/2005 Influenza Vaccination [id number] 69886 Given 12/07/2004 Influenza Vaccination [id number] 96358 Given 12/25/2001 Influenza Vaccine Vital Signs Date Vital Result Comment 11/24/2019 3:01pm BP Systolic 145 mmHg BP Diastolic 93 mmHg BP Systolic Recheck 127 mmHg recheck BP Diastolic Recheck 84 mmHg recheck Heart Rate 89 /min Body Temperature 98.2 F Respiratory Rate 18 /min Height 58 inches 4'10" Weight 133.50 lb O2 % BldC Oximetry 98 % [place] Body Weight 100 lb BMI (Body Mass Index) 27.9 kg/m2 09/15/2019 11:06am BP Systolic 147 mmHg BP Diastolic 102 mmHg BP Systolic Recheck 138 mmHg manual re check BP Diastolic Recheck 86 mmHg manual re check Heart Rate 99 /min Body Temperature 98.2 F Respiratory Rate 14 /min Height 58 inches 4'10" Weight 130.12 lb O2 % [facility] Oximetry 98 % [place] Body Weight 100 lb BMI (Body Mass Index) 27.2 kg/m2 Results Test Acquired Date Facility Test Result H/L Range Note Ua W/ Reflex To Culture 03/18/2020 [place] [address] [phone] Appearance, Urine RFX CLOUDY High Clear Color, Urine RFX YELLOW Normal Yellow PH,Urine RFX 5.0 units Normal 5.0-9.0 Specific Nye Ur Auto RFX 1.010 Normal 1.002-1.035 Protein, [...] Culture 03/18/[address] [place] [address] [phone] Reflex Urine Culture FULL REPORT IN L <SEE NOTE> Norm al 1 Liver Profile 03/18/[address] [place] [address] [phone] Ast/Sgot 78 U/L High 7-37 Alt/SGPT 40 U/L Normal 12-78 Alkaline Phosphatase 123 U/L High 45-117 Bilirubin,Total 1.1 mg/dL High 0.2-1.0 Bilirubin,Direct 0.5 mg/dL High 0.0-0.2 Total Protein 5.7 GM/DL Low 6.4-8.2 Albumin 2.6 GM/DL Low 3.2-5.2 Albumin/Globulin Ratio 0.8 Low 1.2-2.2 Basic Metabolic Profile 03/18/2020 Patient Service [place], [place] [address] [phone] Glucose, Fasting 81 mg/dL Normal 70-100 Blood [...] 8.8-10.2 Laboratory test finding 03/18/2020 [place] [address] [phone] Thyroid Stimulating Hormone 1.260 uIU/ML Normal 0. 358-3.740 Free T4 1.48 ng/dL High 0.76-1.46 CBC With Differential 03/18/2020 [place] [address] [phone] White Blood Count 2.8 10 Low 4.0-10.0 [...] 36.0-66.0 Lymph % 14.9 % Low 24.0-44.0 [place] % 8.2 % High 0.0-5.0 Eos % 1.1 % Normal 0.0-3.0 Baso % 0.4 % Normal 0.0-1.0 Immature Granulocyte % 0.4 % Normal 0-3.0 Nucleated Red Blood Cell % 0.0 % Normal 0-0 Neutrophils # 2.1 10 Normal 1.5-8.5 Lymph # 0.4 10 Low 1.5-5.0 [place] # 0.2 10 Normal 0.0-0.8 Eos # 0.0 10 Normal 0.0-0.5 Baso # 0.0 10 Normal 0.0-0.2 Laboratory test finding 03/18/2020 [facility] [place], [place] [address] [phone] Immature Platelet Fraction 1.6 % Normal 0.0-9 [...] SPCTRM BETA LACTAMASE IV NEGATIVE FOR ESBL E.COLI ESBL: REACTION FOSFOMYCIN PO 3 gm (one dose) 26 S 2 Units are mL/min/1.73 m2 Chronic Kidney Disease Staging per NKF: Stage I & II GFR >=60 Normal to Mildly Decreased Stage III GFR 30-59 Moderately Decreased Stage IV GFR 15-29 Severely Decreased Stage V GFR <15 Very Little GFR Left ESRD GFR <15 on [employer] Procedures Description No Information Available Medical Devices [...] Paul PA Plan of Treatment Future Appointment(s):* 03/27/2020 2:15 pm - Vilma Carlson PA at Main [...]
--- OUTSIDE RECORDS SUMMARY | 2020-03-24 14:04 | CCD | Continuity of Care Document ---
Author Author Courtney PORTER M.D Organization Unknown Address [address] [place] [address] Phone [phone] Care Team Providers Care Otorhinolaryngologist Name Role Phone Eduardo Collins Jr., MD AUTM [phone] Xavier Evans M.D. [facility] [phone] Kael Ritter JR., M.D. AUTM [phone] [facility] Gastro - Gastroenterology AUTM Problems Active [...] by mouth every day 90tabs E03.9 Ambar Portre M.D. 04/21/2019 Vitamin D (Ergocalciferol) 1.25mg (80217 Ut) Capsules Take One Capsule By Mouth [...] mouth once daily 90caps N32.81 Katie Burroughs, [facility] 01/09/2015 Xanax 0.25mg Tablets 1 tab [...] CPT Code Status Date Vaccine Lot # [id number] Given 11/24/2019 Influenza Virus Vaccine, Quadrivalent,age 3 and up,multidose vial [id number] 98619 Given 12/07/2018 Influenza Virus Vaccine, Quadrivalent,age 3 and up,multidose vial [id number] Given 12/07/2018 Influenza Virus Vaccine, Quadrivalent,age 3 and up,multidose vial [id number] 10570 Given 12/03/2017 Influenza Virus Vaccine, Quadrivalent,age 3 and up,multidose vial [id number] 24460 Given 12/31/2016 Prevnar 13 For Adults 89297 Given 12/31/2016 Influenza Virus Vaccine, Quadrivalent,age 3 and up,multidose vial [id number] Given 12/22/2015 Influenza Vaccine (Fluzone)( medicare) [id number] Q2038 Given 12/22/2015 Influenza Vaccine (Fluzone)( medicare) [id number] 06172 Given 04/20/2015 Prevnar 13 Q2038 Given 11/30/2014 Influenza Vaccine (Fluzone)( medicare) [id number] Q2038 Given 11/29/2013 Influenza Vaccine (Fluzone)( medicare) [id number] 71387 Given 11/19/2012 Influenza Vaccination [id number] Q2038 Given 11/19/2012 Influenza Vaccine (Fluzone)( medicare) [id number] Given 12/04/2011 Influenza Vaccine (Fluzone)( medicare) [id number] Given 12/04/2011 Influenza Vaccination [id number] Q2038 Given 12/05/2010 Influenza Vaccine (Fluzone)( medicare) [id number] Given 11/07/2010 Zostavax 23151 Given 11/08/2009 Influenza Vaccination [id number] 64794 Given 11/30/2008 Influenza Vaccination [id number] 10175 Given 12/28/2007 Pneumococcal Vaccine [id number] 24742 Given 12/28/2007 Influenza Vaccination [id number] 35141 Given 12/30/2006 Influenza Vaccination [id number] 70560 Given 12/18/2005 Influenza Vaccination [id number] 76272 Given 12/07/2004 Influenza Vaccination [id number] 02601 Given 12/25/2001 Influenza Vaccine Vital Signs Date Vital Result Comment 11/24/2019 3:01pm BP Systolic 145 mmHg BP Diastolic 93 mmHg BP Systolic Recheck 127 mmHg recheck BP Diastolic Recheck 84 mmHg recheck Heart Rate 89 /min Body Temperature 98.2 F Respiratory Rate 18 /min Height 58 inches 4'10" Weight 133.50 lb O2 % BldC Oximetry 98 % [place] Body Weight 100 lb BMI (Body Mass Index) 27.9 kg/m2 09/15/2019 11:06am BP Systolic 147 mmHg BP Diastolic 102 mmHg BP Systolic Recheck 138 mmHg manual re check BP Diastolic Recheck 86 mmHg manual re check Heart Rate 99 /min Body Temperature 98.2 F Respiratory Rate 14 /min Height 58 inches 4'10" Weight 130.12 lb O2 % [facility] Oximetry 98 % [place] Body Weight 100 lb BMI (Body Mass Index) 27.2 kg/m2 Results Test Acquired Date Facility Test Result H/L Range Note Ua W/ Reflex To Culture 03/18/2020 [place] [address] [phone] Appearance, Urine RFX CLOUDY High Clear Color, Urine RFX YELLOW Normal Yellow PH,Urine RFX 5.0 units Normal 5.0-9.0 Specific [place] Ur Auto RFX 1.010 Normal 1.002-1.035 Protein, [...] Culture 03/18/[address] [place] [address] [phone] Reflex Urine Culture FULL REPORT IN L <SEE NOTE> Norm al 1 Liver Profile 03/18/[address] [place] [address] [phone] Ast/Sgot 78 U/L High 7-37 Alt/SGPT 40 U/L Normal 12-78 Alkaline Phosphatase 123 U/L High 45-117 Bilirubin,Total 1.1 mg/dL High 0.2-1.0 Bilirubin,Direct 0.5 mg/dL High 0.0-0.2 Total Protein 5.7 GM/DL Low 6.4-8.2 Albumin 2.6 GM/DL Low 3.2-5.2 Albumin/Globulin Ratio 0.8 Low 1.2-2.2 Basic Metabolic Profile 03/18/2020 Patient Service [place], [place] [id number] [phone] Glucose, Fasting 81 mg/dL Normal 70-100 Blood [...] 8.8-10.2 Laboratory test finding 03/18/2020 [place] [address] [phone] Thyroid Stimulating Hormone 1.260 uIU/ML Normal 0. 358-3.740 Free T4 1.48 ng/dL High 0.76-1.46 CBC With Differential 03/18/2020 [place] [address] [phone] White Blood Count 2.8 10 Low 4.0-10.0 [...] 36.0-66.0 Lymph % 14.9 % Low 24.0-44.0 [place] % 8.2 % High 0.0-5.0 Eos % 1.1 % Normal 0.0-3.0 Baso % 0.4 % Normal 0.0-1.0 Immature Granulocyte % 0.4 % Normal 0-3.0 Nucleated Red Blood Cell % 0.0 % Normal 0-0 Neutrophils # 2.1 10 Normal 1.5-8.5 Lymph # 0.4 10 Low 1.5-5.0 [place] # 0.2 10 Normal 0.0-0.8 Eos # 0.0 10 Normal 0.0-0.5 Baso # 0.0 10 Normal 0.0-0.2 Laboratory test finding 03/18/2020 [facility] [place], [place] [id number] [phone] Immature Platelet Fraction 1.6 % Normal 0.0-9 [...] Little GFR Left ESRD GFR <15 on RAWHIDE 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
--- OUTSIDE RECORDS SUMMARY | 2020-03-24 14:04 | CCD ---
Author Author [facility] Organization [facility] Address Unknown Phone Unavailable Care Team Providers Care Swine Genetics Researcher Name Role Phone Xavier Evans MD Unavailable Unavailable Xavier Evans MD Unavailable Unavailable Xavier Evans MD Unavailable Unavailable Xavier Evans MD Unavailable Unavailable Xavier Evans MD Unavailable Unavailable Xavier Evans MD Unavailable Unavailable Xavier Evans MD Unavailable Unavailable Xavier Evans MD Unavailable Unavailable Xavier Evans MD Unavailable Unavailable Xavier Evans MD Unavailable Unavailable Xavier Evans MD Unavailable Unavailable Xavier Evans MD Unavailable Unavailable Xavier Evans MD Unavailable Unavailable Xavier Evans MD Unavailable Unavailable Xavier Evans MD Unavailable Unavailable Xavier Evans MD Unavailable Unavailable Xavier Evans MD Unavailable Unavailable Xavier Evans MD Unavailable Unavailable Xavier Evans MD Unavailable Unavailable Xavier Evans MD Unavailable Unavailable Xavier Eavns MD Unavailable Unavailable Xavier Evans MD Unavailable Unavailable Xavier Evans MD Unavailable Unavailable Xavier Evans MD Unavailable Unavailable Xavier Evans MD Unavailable Unavailable Xavier Evans MD Unavailable Unavailable Xavier Evans MD Unavailable Unavailable Xavier Evans MD Unavailable Unavailable Xavier Evans MD Unavailable Unavailable Xavier Evans MD Unavailable Unavailable Xavier Evans MD Unavailable Unavailable Jay Evanstech Unavailable Unavailable Jay Evanstech Unavailable Unavailable Jay Evanstech Unavailable Unavailable Jay Evanstech Unavailable Unavailable Jay Evanstech Unavailable Unavailable Jay Evanstech Unavailable Unavailable Jay Evanstech Unavailable Unavailable Jay Evanstech Unavailable Unavailable Jay Evanstech Unavailable Unavailable Jay Evanstech Unavailable Unavailable Jay Evanstech Unavailable Unavailable Jay Evanstech Unavailable Unavailable Jessee Evansjtech Unavailable Unavailable Jessee Evansjtech Unavailable Unavailable Jessee Evansjtech Unavailable Unavailable Jay Evanstech Unavailable Unavailable Jay Evanstech Unavailable Unavailable Jessee Evansjtech Unavailable Unavailable Jay Evanstech Unavailable Unavailable Jay Evanstech Unavailable Unavailable Jay Evanstech Unavailable Unavailable Xavier Evans MD Unavailable Unavailable Xavier Evans MD Unavailable Unavailable Jay Evanstech Unavailable Unavailable Jay Evanstech Unavailable Unavailable Jay Evanstech Unavailable Unavailable Petrancosta, Jewell Vilma PA-C Unavailable Unavailabl e Petrancosta, Jewell Vilma PA-C Unavailable Unavailabl e Petrancosta, Jewell Vilma PA-C Unavailable Unavailabl e Petrancosta, Jewell Vilma PA-C Unavailable Unavailabl e Petrancosta, Jewell Vilma PA-C Unavailable Unavailabl e Petrancosta, Jewell Vilma PA-C Unavailable Unavailabl e Petrancosta, Jewell Vilma PA-C Unavailable Unavailabl e Petrancosta, Jewell Vilma PA-C Unavailable Unavailabl e Petrancosta, Jewell Vilma PA-C Unavailable Unavailabl e Petrancosta, Jewell Vilma PA-C Unavailable Unavailabl e Petrancosta, Jewell Vilma PA-C Unavailable Unavailabl e Petrancosta, Jewell Vilma PA-C Unavailable Unavailabl e Petrancosta, Jewell Vilma PA-C Unavailable Unavailabl e Petrancosta, Jewell Vilma PA-C Unavailable Unavailabl e Petrancosta, Jewell Vilma PA-C Unavailable Unavailabl e Petrancosta, Jewell Vilma PA-C Unavailable Unavailabl e Petrancosta, Jewell Vilma PA-C Unavailable Unavailabl e Petrancosta, Jewell Vilma PA-C Unavailable Unavailabl e Petrancosta, Jewell Vilma PA-C Unavailable Unavailabl e Petrancosta, Jewell Vilma PA-C Unavailable Unavailabl e Petrancosta, Jewell Vilma PA-C Unavailable Unavailabl e Petrancosta, Jewell Vilma PA-C Unavailable Unavailabl e [place], N Wagnre OYSTER FISHERMAN Unavailable Unavailable Op[place], N Wagner OYSTER FISHERMAN Unavailable Unavailable [place], N Wagner OYSTER FISHERMAN Unavailable Unavailable [place], N Wagner OYSTER FISHERMAN Unavailable Unavailable Opal, N Wagner OYSTER FISHERMAN Unavailable Unavailable [place], N Wagner OYSTER FISHERMAN Unavailable Unavailable Opal, N Wagner OYSTER FISHERMAN Unavailable Unavailable Opal, N Wagner OYSTER FISHERMAN Unavailable Unavailable Opal, N Wagner OYSTER FISHERMAN Unavailable Unavailable Opal, N Wagner OYSTER FISHERMAN Unavailable Unavailable Opal, N Wagner OYSTER FISHERMAN Unavailable Unavailable [place], N Wagner OYSTER FISHERMAN Unavailable Unavailable Opal, N Wagner OYSTER FISHERMAN Unavailable Unavailable Opal, N Wagenr OYSTER FISHERMAN Unavailable Unavailable [place], N Wagner OYSTER FISHERMAN Unavailable Unavailable [place], N Wagner OYSTER FISHERMAN Unavailable Unavailable Op[place], N Wagner OYSTER FISHERMAN Unavailable Unavailable [place], N Wagner OYSTER FISHERMAN Unavailable Unavailable Op[place], N Wagner OYSTER FISHERMAN Unavailable Unavailable Op[place], N Wagner OYSTER FISHERMAN Unavailable Unavailable [place], N Wagner OYSTER FISHERMAN Unavailable Unavailable [place], N Wagner OYSTER FISHERMAN Unavailable Unavailable Op[place], N Wagner OYSTER FISHERMAN Unavailable Unavailable [place], N Wagner OYSTER FISHERMAN Unavailable Unavailable Op[place], N Wagner OYSTER FISHERMAN Unavailable Unavailable [place], N Wagner OYSTER FISHERMAN Unavailable Unavailable [place], N Wagner OYSTER FISHERMAN Unavailable Unavailable [place], N Wagner OYSTER FISHERMAN Unavailable Unavailable Op[place], N Wagner OYSTER FISHERMAN Unavailable Unavailable [place], N Wagner OYSTER FISHERMAN Unavailable Unavailable Santamaria, Alina OYSTER FISHERMAN Unavailable Unavailable Santamaria, Alina OYSTER FISHERMAN Unavailable Unavailable Santamaria, Alina OYSTER FISHERMAN Unavailable Unavailable Santamaria, Alnia OYSTER FISHERMAN Unavailable Unavailable Santamaria, Alina OYSTER FISHERMAN Unavailable Unavailable Santamaria, Alina OYSTER FISHERMAN Unavailable Unavailable Santamaria, Alina OYSTER FISHERMAN Unavailable Unavailable Santamaria, Alina OYSTER FISHERMAN Unavailable Unavailable Santamaria, Alina OYSTER FISHERMAN Unavailable Unavailable Santamaria, Alina OYSTER FISHERMAN Unavailable Unavailable Santamaria, Alina OYSTER FISHERMAN Unavailable Unavailable Re-disclosure Warning The records that you are about to access may contain information from federally-assisted alcohol or drug abuse programs. If such information is present, then the following federally mandated warning applies: This information has been disclosed to you from records protected by federal confidentiality rules (42 CFR part 2). The federal rules prohibit you from making any further disclosure of this information unless further disclosure is expressly permitted by the written consent of the person to whom it pertains or as otherwise permitted by 42 CFR part 2. A general authorization for the release of medical or other information is NOT sufficient for this purpose. The Federal rules restrict any use of the information to criminally investigate or prosecute any alcohol or drug abuse patient.The records that you are about to access may contain highly sensitive health information, the redisclosure of which is protected by Article 27-F of the [facility] Public Health law. If you continue you may have access to information: Regarding HIV / AIDS; Provided by facilities licensed or operated by the [facility] Office of Mental Health; or Provided by the [facility] Office for People With Developmental Disabilities. If such information is present, then the following [facility] mandated warning applies: This information has been disclosed to you from confidential records which are protected by state law. State law prohibits you from making any further disclosure of this information without the specific written consent of the person to whom it pertains, or as otherwise permitted by law. Any unauthorized further disclosure in violation of state law may result in a fine or fdc sentence or both. A general authorization for the release of medical or other information is NOT sufficient authorization for further disc losure. Family History Family Member Name Family Member Gender Family Member Status Date o f Status Description Data Source(s) Unknown Unknown Problem [facility] ([facility]) mgm,mgf Unknown Unknown Problem [facility] ([facility] Unknown Unknown Problem [facility] ([facility] Unknown Male Problem [facility] ([facility] ) Encounters Encounter Providers Location Date Indications Data Source(s ) Outpatient Attender: Wagner [email or web address] 020 12:00:00 AM EDT - 01/04/2020 03:31:06 PM EDT [facility] Outpatient Attender: Vilma Carlson PA-C Main Office 11/24/2019 02:30:00 PM EDT [facility] ([facility] Outpatient Attender: Alina leahy 11/03/2019 03:50:00 PM EDT [facility] ([facility] Outpatient Attender: Vilma Carlson PA-C Main Office 09/15/2019 10:45:00 AM EDT [facility] ([facility] Outpatient Attender: Wagner [email or web address] 020 12:00:00 AM EDT - 05/17/2019 01:40:39 PM EDT [facility] Outpatient Attender: Xavier [email or web address] 01/08 12:00:00 AM EST - 01/21/2019 02:39:21 PM [facility] Immunizations Vaccine Date Status Description Data Source(s) New in 2012. IIV4 11/24/2019 03:39:00 PM EDT completed [facility] ([facility] Medications Medication Brand Name Start Date Product Form Dose Route Admi nistrative Instructions Pharmacy Instructions Status Indications Reaction Description Data Source(s) Mupirocin 0.02 MG/MG Topical Ointment Mupirocin 11/03/2019 12:00:00 AM EDT active [facility] ([facility]) Cephalexin 250 MG Oral Tablet Cephalexin 11/03/2019 12:00:00 AM EDT active [facility] ([facility]) Levothyroxine Sodium 0.05 MG Oral Tablet Levothyroxine Sodiu m 04/21/2019 12:00:00 AM EST ORAL active M EDENT ([facility] Ergocalciferol 01221 UNT Oral Capsule Vitamin D (Ergocalcife rol) 02/16/2019 12:00:00 AM ANILA LOBATO ([facility] Insurance Providers Payer name Policy type / Coverage type Policy ID Covered libertarian ID Covered libertarian's relationship to harmon Policy Harmon Plan Information MEDICARE [id number] SP [id number] [id number] SP [id number] FOR LIFE [id number] [id number] Spo [id number] UMR [id number] [place] [id number] MEDICARE [id number] [place] [id number] [id number] MEDICARE PART A-RECURRING [id number] 18 [id number] MEDICARE C [id number] S [id number] [id number] UMR O [id number] S [id number] FOR LIFE O [id number] S [id number] [facility] PART B C [id number] S [id number] MEDICARE [id number] SP [id number] A Emp/United Healthcare Medigap Part B [id number] Family Depen dent [id number] For Life Medigap Part B [id number] Family Dependent [id number] Umr Medigap Part B [id number] Self [id number] [place] Primary [id number] Self [id number] Emp/United Healthcare Medigap Part B [id number] Family Depen dent [id number] For Life Medigap Part B [id number] Family Dependent [id number] Umr Medigap Part B [id number] Self [id number] [place] Primary [id number] Self [id number] Emp/United Healthcare Medigap Part B [id number] Family Depen dent [id number] For Life Medigap Part B [id number] Family Dependent [id number] Umr Medigap Part B [id number] Self [id number] [place] Primary [id number] Self [id number] Emp/United Healthcare Medigap Part B [id number] Family Depen dent [id number] For Life Medigap Part B [id number] Family Dependent [id number] Umr Medigap Part B [id number] Self [id number] [place] Primary [id number] Self [id number] For Life WPS Medigap Part B [id number] Self [id number] Umr/Uhc/[place] Medigap Part B [id number] Self [id number] Medicare Natl Gov't Servi Medicare Primary [id number] Self [id number] Emp/United Healthcare Medigap Part B [id number] Family Depen dent [id number] For Life Medigap Part B [id number] Family Dependent [id number] Umr Medigap Part B [id number] Self [id number] [place] Primary [id number] Self [id number] UMR O [id number] S [id number] MEDICARE [id number] S [id number] A Emp/United Healthcare Medigap Part B [id number] Family Depen dent [id number] For Life Medigap Part B [id number] Family Dependent [id number] Umr Medigap Part B [id number] Self [id number] [place] Primary [id number] Self [id number] POMCO-RECURRING [id number] 18 [id number] UMR UNITED HEALTH CARE [id number] SP [id number] POMCO [id number] SP [id number] Emp/United Healthcare Medigap Part B [id number] Family Depen dent [id number] For Life Medigap Part B [id number] Family Dependent [id number] [place] Medigap Part B [id number] Self [id number] [place] Primary [id number] Self [id number] Emp/United Healthcare Medigap Part B [id number] Family Depen dent [id number] For Life Medigap Part B [id number] Family Dependent [id number] [place] Medigap Part B [id number] Self [id number] Medicare [place] Primary [id number] Self [id number] POMCO PPO O [id number] S [id number] FOR LIFE [id number] HU2 0 [id number] Emp/United Healthcare Medigap Part B [id number] Family Depen dent [id number] For Life Medigap Part B [id number] Family Dependent [id number] [place] Medigap Part B [id number] Self [id number] [place] Primary [id number] Self [id number] WPS For Life Medigap Part B [id number] Self [id number] [place] Medigap Part B [id number] Self [id number] 1918 Medicare [place]/[facility] Medicare Primary [id number] Self [id number] POMCO [id number] SP [id number] FOR LIFE [id number] SP [id number] Emp/United Healthcare Medigap Part B [id number] Family Depen dent [id number] For Life Medigap Part B [id number] Family Dependent [id number] [place] Medigap Part B [id number] Self [id number] 1918 Medicare [place] Medicare Primary [id number] Self [id number] Emp/United Healthcare Medigap Part B [id number] Family Depen dent [id number] For Life Medigap Part B [id number] Family Dependent [id number] [place] Medigap Part B [id number] Self [id number] 1918 Medicare [place] Medicare Primary [id number] Self [id number] WPS For Life Medigap Part B [id number] Self [id number] [place] Medigap Part B [id number] Self [id number] 1918 Medicare [place]/NGS Medicare Primary [id number] Self [id number] Emp/United Healthcare Medigap Part B [id number] Family Depen dent [id number] For Life Medigap Part B [id number] Family Dependent [id number] [place] Medigap Part B [id number] Self [id number] 1918 Medicare [place] Primary [id number] Self [id number] [employer] Compensation [id number] Self [id number] For Life WPS Medigap Part B [id number] Self [id number] [place] Medigap Part B [id number] Self [id number] 1918 Medicare Natl Gov't Servi Medicare Primary [id number] Self [id number] [facility]) Medigap Part B [id number] Family Dep endent [id number] Medicare [place] Medicare Primary [id number] Self [id number] [place] (pr) Medigap Part B [id number] Self [id number] [place] [facility] (TFL) Medigap Part B [id number] Family Dep endent [id number] Medicare [place] Medicare Primary [id number] Self [id number] Emp/United Healthcare Medigap Part B [id number] Family Depen dent [id number] For Life Medigap Part B [id number] Family Dependent [id number] [place] Medigap Part B [id number] Self [id number] 1917 Medicare [place] Medicare Primary [id number] Self [id number] [place] [employer] (TFL) Medigap Part B [id number] Family Dep endent [id number] [place] Medicare Primary [id number] Self [id number] POMCO PPO O [id number] S [id number] [place] [employer] (TFL) Medigap Part B [id number] Family Dep endent [id number] [place] Medicare Primary [id number] Self [id number] For Life Medigap Part B Family Dependent Emp/United Healthcare Medigap Part B Family Depend ent [place] Medigap Part B Self Medicare [place] Medicare Primary Self [employer] Workers Compensation Self For Life WPS Medigap Part B Self [place] Medigap Part B Self Medicare Natl Gov't Servi Medicare Primary Self POMCO [id number] SP [id number] [facility] [place] [id number] SP [id number] Emp/United Healthcare Medigap Part B Family Depend ent [employer] Medigap Part B Family Depe ndent P UNAVAILABLE UNAVAILA BLE TRAVELERS NO FAULT P [id number] S [id number] TRAVELERS NO FAULT [id number] SP [id number] POMCO U [id number] Self [id number] A Problems, Conditions, and Diagnoses Code Display Name Description Problem Type Effective Dates Data Source(s) R42 Dizziness and giddiness Dizziness and giddiness Diagno sis 01/04/2020 02:56:53 PM EDT [facility] I10 Essential (primary) hypertension Essential (primary) h ypertension Diagnosis 01/04/2020 02:56:53 PM EDT [facility] E78.2 Mixed hyperlipidemia Mixed hyperlipidemia Diagnosis 01/04/2020 02:56:53 PM EDT [facility] I48.91 Unspecified atrial fibrillation Unspecified atri al fibrillation Diagnosis 01/04/2020 02:56:53 PM EDT [facility] Results ID Date Data Source [id number] 03/18/2020 05:56:00 PM EST [facility] ([facility] Name Value Range Interpretation Code Description Data Magdalena rce(s) Supporting Document(s) Reflex Urine Culture Laboratory test result [facility] ([facility] <content>FULL REPORT IN LAB NOTES (eCW a nd [facility]).</content>
<content></content>
<content>ORGANISM 1: E.COLI ESBL</content>
<content></content>
<content>COLONY COUNT > 100,000</content>
<content></content>
<content></content>
<content>O RGANISM 1: E.COLI ESBL</content>
<content></content>
<content>E.COLI ESBL: REACTION</content>
<content>TRIMETHOPRIM/SULFAMETHOXAZOLE IV 160mg TMP & 800mg SMXq6h <=20 S</content>
<content> TRIMETHOPRIM/SULFAMETHOXAZOLE PO Bactrim DS Bid <=20 S</content>
<content>AMPICILLIN IV 500mg q6h >=32 R</content>
<content>AMPICILLIN PO 500mg q6h fasting >=32 R</content>
<content>GENTAMICIN IV 80mg q8h >=16 R</content>
<content>NITROFURANTOIN PO 100mg BID <=16 S</content>
<content>CEFAZOLIN IV 1gm q8h >=64 R</content>
<content>LEVOFLOXACIN IV 500mg qd >=8 R</content>
<content>LEVOFLOXACIN PO 250mg qd >=8 R</content>
<content>LEVOFLOXACIN PO 500mg qd >=8 R</content>
<content>TOBRAMYCIN IV 80mg q8h >=16 R</content>
<content>CEFTRIAXONE IV 1gm q24h 16 R</content>
<content>CEFTAZIDIME IV 1gm q8h 4 R</content>
<content>AMPICILLIN/SULBACTAM IV 1.5g q6h >=32 R</content>
<content>PIPERACILLIN/TAZOBACTAM IV 2.25 gm q6h <=4 S</content>
<content>AZTREONAM IV 1gm q8h 16 R</content>
<content>ERTAPENEM IV 1gm qd <=0.5 S</content>
<content> MEROPENEM IV 1 gm q8h <=0.25 S</content>
<content>MEROPENEM IV 500 mg q8h <=0.25 S</content>
<content>TIGECYCLINE IV 50mg q12h <=0.5 S</content>
<content>CEFEPIME IV 1 gm q12h 2 R</content>
<content>CEFEPIME IV 2 gm q12h 2 R</content>
<content>EXTD BRD SPCTRM BETA LACTAMASE IV NEGATIVE FOR ESBL</content>
<content></content>
<content>E.COLI ESBL: REACTION</content>
<content>FOSFOMYCIN PO 3 gm (one dose) 26 S</content>
<content></content> ID Date Data Source [id number] 03/18/2020 05:56:00 PM EST [facility] ([facility] Name Value Range Interpretation Code Description Data Magdalena rce(s) Supporting Document(s) PH,Urine RFX 5.0 units 5.0-9.0 [facility] ([facility] Color, Urine RFX Laboratory test result [facility] ([facility] Appearance, Urine RFX Laboratory test result [facility] ([facility] Specific [place] Ur Auto RFX 1.010 1.002-1.035 [facility] ([facility] Glucose, Urine (Ua) Auto RFX Laboratory test result [facility] ([facility] Protein, Urine Auto RFX Laboratory test result [facility] ([facility] Urobilinogen, Urine Auto RFX 0.2 mg/dL 0.0-2.0 [facility] ([facility] Bilirubin, Urine Auto RFX Laboratory test result [facility] ([facility] Ketone, Urine Auto RFX Laboratory test result [facility] ([facility] Nitrite, Urine Auto RFX Laboratory test result [facility] ([facility] Leukocyte Esterase Ur Auto RFX Laboratory test result [facility] ([facility] Blood, Urine Blood RFX Laboratory test result [facility] ([facility] WBC, Urine Auto RFX 120 /HPF 0-3 [facility] ([facility] RBC, Urine Auto RFX 11 /HPF 0-3 [facility] ([facility] Bacteria, Urine Auto RFX Laboratory test result [facility] ([facility] Squam Epithelial Cell Ur Aurfx 2 /HPF 0-6 [facility] ([facility] Mucus, Urine RFX Laboratory test result [facility] ([facility] Hyaline Cast, Urine Auto RFX 12 /LPF 0-1 [facility] ([facility] ID Date Data Source [id number] 03/18/2020 04:13:00 PM EST [facility] ([facility] Name Value Range Interpretation Code Description Data Magdalena rce(s) Supporting Document(s) Platelets reticulated/100 platelets in Blood by Automated count 1.6 % 0.0-9.59 [facility] ([facility] ID Date Data Source [id number] 03/18/2020 04:13:00 PM EST [facility] ([facility] Name Value Range Interpretation Code Description Data Magdalena rce(s) Supporting Document(s) White Blood Count 2.8 10 4.0-10.0 [facility] ([facility] Red Blood Count 3.14 10 4.00-5.40 [facility] ([facility] Hemoglobin 11.6 g/dL 12.0-15.5 [facility] ([facility] Mean Corpuscular Hemoglobin 36.9 pg 27.0-33.0 [facility] ([facility] Hematocrit 34.8 % 36.0-47.0 [facility] ([facility] Mean Corpuscular Volume 110.8 fl 80.0-96.0 M EDENT ([facility] Red Cell Distribution Width 15.7 % 11.5-14.5 [facility] ([facility] Platelet Count, Automated 68 10 150-450 [facility] ([facility] Mean Corpuscular HGB Conc 33.3 g/dL 32.0-36.5 [facility] ([facility] Neutrophils % 75.0 % 36.0-66.0 [facility] ([facility] Eos % 1.1 % 0.0-3.0 [facility] ([facility] Lymph % 14.9 % 24.0-44.0 [facility] ([facility] [place] % 8.2 % 0.0-5.0 [facility] ([facility] Immature Granulocyte % 0.4 % 0-3.0 [facility] ([facility] Nucleated Red Blood Cell % 0.0 % 0-0 MED [facility] ([facility] Baso % 0.4 % 0.0-1.0 [facility] ([facility] Neutrophils # 2.1 10 1.5-8.5 [facility] ([facility] Lymph # 0.4 10 1.5-5.0 [facility] ([facility] [place] # 0.2 10 0.0-0.8 [facility] ([facility] Baso # 0.0 10 0.0-0.2 [facility] ([facility] Eos # 0.0 10 0.0-0.5 [facility] ([facility] ID Date Data Source [id number] 03/18/2020 04:13:00 PM EST [facility] ([facility] Name Value Range Interpretation Code Description Data Magdalena rce(s) Supporting Document(s) Thyrotropin [Units/volume] in Serum or Plasma 1.260 uIU/ML 0.358-3.74 0 [facility] ([facility] Thyroxine (T4) free [Mass/volume] in Serum or Plasma 1.48 ng/dL 0.76- 1.46 [facility] ([facility] ID Date Data Source [id number] 03/18/2020 04:13:00 PM EST [facility] ([facility] Name Value Range Interpretation Code Description Data Magdalena rce(s) Supporting Document(s) Blood Urea Nitrogen 22 mg/dL 7-18 [facility] ([facility] Glucose, Fasting 81 mg/dL 70-100 [facility] ([facility] Creatinine For GFR 1.17 mg/dL 0.55-1.30 [facility] ([facility] Glomerular Filtration Rate 47.0 [facility] ([facility] <content>Units are mL/min/1.73 m2</content>
<content></content>
<content>Chronic Kidney Disease Staging per NKF:</content>
<content></content>
<content>Stage I & II GFR >=60 Normal to Mildly Decreased</content>
<content>Stage III GFR 30- 59 Moderately Decreased</content>
<content>Stage IV GFR 15-29 Severely Decreased</content>
<content>Stage V GFR <15 Very Little GFR Left</content>
<content>ESRD GFR <15 on MILLER KILN DRIED SALT</content>
<content></content> Sodium Level 132 meq/L 136-145 [facility] ([facility] Potassium Serum 4.0 meq/L 3.5-5.1 [facility] ([facility] Calcium Level 7.7 mg/dL 8.8-10.2 [facility] ([facility] Carbon Dioxide Level 27 meq/L 21-32 [facility] ([facility] Chloride Level 97 meq/L 98-107 [facility] ([facility] Anion Gap 8 meq/L 8-16 [facility] ([facility] ID Date Data Source [id number] 03/18/2020 04:13:00 PM EST [facility] ([facility] Name Value Range Interpretation Code Description Data Magdalena rce(s) Supporting Document(s) Alt/SGPT 40 U/L 12-78 [facility] ([facility] Ast/Sgot 78 U/L 7-37 [facility] ([facility] Bilirubin,Total 1.1 mg/dL 0.2-1.0 [facility] ([facility] Bilirubin,Direct 0.5 mg/dL 0.0-0.2 [facility] ([facility] Alkaline Phosphatase 123 U/L 45-117 [facility] ([facility] Albumin 2.6 GM/DL 3.2-5.2 [facility] ([facility] Total Protein 5.7 GM/DL 6.4-8.2 [facility] ([facility] Albumin/Globulin Ratio 0.8 1.2-2.2 [facility] ([facility] ID Date Data Source [id number] 08/26/2019 01:18:00 PM EDT [facility] ([facility] Name Value Range Interpretation Code Description Data Magdalena rce(s) Supporting Document(s) Thyrotropin [Units/volume] in Serum or Plasma 1.680 uIU/ML 0.358-3.74 0 [facility] ([facility] Thyroxine (T4) free [Mass/volume] in Serum or Plasma 1.39 ng/dL 0.76- 1.46 [facility] ([facility] ID Date Data Source [id number] 04/20/2019 03:10:00 PM EST [facility] ([facility] Name Value Range Interpretation Code Description Data Magdalena rce(s) Supporting Document(s) Thyroid Stimulating Hormone 6.300 uIU/ML 0.358-3.740 [facility] ([facility] Free T4 1.21 ng/dL 0.76-1.46 [facility] ([facility] Procedure Social History Code Duration Value Status Description Data Source(s ) Smoking 11/24/2019 12:00:00 AM EDT Patient has never smoked co mpleted Patient has never smoked [facility] ([facility] Smoking 11/03/2019 12:00:00 AM EDT Patient has never smoked co mpleted Patient has never smoked [facility] ([facility], [facility]) Vital Signs ID Date Data Source UNK Name Value Range Interpretation Code Description Data Source(s) Body mass index (BMI) [Ratio] 27.9 kg/m2 27.9 k g/m2 [facility] ([facility] Pegram body weight 100 [lb_av] 100 [lb_av] [facility] T ([facility] Oxygen saturation in Arterial blood by Pulse oximetry 98 % 98 % [facility] ([facility] Body weight 133.50 [lb_av] 133.50 [lb_av] [facility] ([facility] Body height 58 [in_i] 58 [in_i] [facility] ([facility] 4'10" Respiratory rate 18 /min 18 /min [facility] ( [facility] Body temperature 98.2 [degF] 98.2 [degF] [facility] ([facility] Heart rate 89 /min 89 /min [facility] ([facility] Diastolic blood pressure 84 mm[Hg] 84 mm[Hg] [facility] ([facility] recheck Systolic blood pressure 127 mm[Hg] 127 mm[Hg] [facility] ([facility] recheck Diastolic blood pressure 93 mm[Hg] 93 mm[Hg] [facility] ([facility] Systolic blood pressure 145 mm[Hg] 145 mm[facility]Hg] [facility] Body mass index (BMI) [Ratio] 26.3 kg/m2 26.3 k g/m2 [facility] ([facility]) Body height 59 [in_i] 59 [in_i] [facility] ([facility]) 4'11" Body weight 130.00 [lb_av] 130.00 [lb_av] [facility] T ([facility]) Body temperature 97.9 [degF] 97.9 [degF] [facility] ([facility]) Oxygen saturation in Arterial blood by Pulse oximetry 100 % 100 % [facility] Respiratory rate 12 /min 12 /min [facility] Heart rate 92 /min 92 /min [facility] ([facility]) Diastolic blood pressure 68 mm[Hg] 68 mm[Hg] [facility] ([facility]) Systolic blood pressure 124 mm[Hg] 124 mm[Hg] [facility] Body mass index (BMI) [Ratio] 27.2 kg/m2 27.2 k g/m2 [facility] ([facility] [place] body weight 100 [lb_av] 100 [lb_av] [facility] ([facility] Oxygen saturation in Arterial blood by Pulse oximetry 98 % 98 % [facility] ([facility] Body weight 130.12 [lb_av] 130.12 [lb_av] [facility] T ([facility] Body height 58 [in_i] 58 [in_i] [facility] ([facility] 4'10" Respiratory rate 14 /min 14 /min [facility] ( [facility] Body temperature 98.2 [degF] 98.2 [degF] [facility] ([facility] Heart rate 99 /min 99 /min [facility] ([facility] Diastolic blood pressure 86 mm[Hg] 86 mm[Hg] [facility] ([facility] manual re check Systolic blood pressure 138 mm[Hg] 138 mm[Hg] M [facility] ([facility] manual re check Diastolic blood pressure 102 mm[Hg] 102 mm[Hg] [facility] ([facility] Systolic blood pressure 147 mm[Hg] 147 mm[Hg] M [facility] ([facility]
--- OUTSIDE RECORDS SUMMARY | 2020-03-24 14:04 | CCD | Continuity of Care Document ---
Author Author Courtney PORTER M.D Organization Unknown Address [address] [place] [address] Phone [phone] Care Team Providers Care Television Presenter Name Role Phone Eduardo Collins Jr., MD [facility] [phone] Xavier Evans M.D. [facility] [phone] Kael Ritter JR., M.D. AUTM [phone] [facility] [phone] Problems Active Problems Provider Date Essential hypertension [...] Porter M.D. 04/21/2019 Vitamin D (Ergocalciferol) 1.25mg (72813 Ut) Capsules Take One Capsule By Mouth [...] mouth once daily 90caps N32.81 Katie Burroughs, [facility] 01/09/2015 Xanax 0.25mg Tablets 1 tab by [...] CPT Code Status Date Vaccine Lot # [id number] Given 11/24/2019 Influenza Virus Vaccine, Quadrivalent,age 3 and up,multidose vial [id number] 74947 Given 12/07/2018 Influenza Virus Vaccine, Quadrivalent,age 3 and up,multidose vial 82072 Given 12/07/2018 Influenza Virus Vaccine, Quadrivalent,age 3 and up,multidose vial [id number] 55917 Given 12/03/2017 Influenza Virus Vaccine, Quadrivalent,age 3 and up,multidose vial [id number] 14617 Given 12/31/2016 Prevnar 13 For Adults 39326 Given 12/31/2016 Influenza Virus Vaccine, Quadrivalent,age 3 and up,multidose vial [id number] Given 12/22/2015 Influenza Vaccine (Fluzone)( medicare) [id number] Q2038 Given 12/22/2015 Influenza Vaccine (Fluzone)( medicare) [id number] 17180 Given 04/20/2015 Prevnar 13 Q2038 Given 11/30/2014 Influenza Vaccine (Fluzone)( medicare) [id number] Q2038 Given 11/29/2013 Influenza Vaccine (Fluzone)( medicare) [id number] 19018 Given 11/19/2012 Influenza Vaccination [id number] Q2038 Given 11/19/2012 Influenza Vaccine (Fluzone)( medicare) [id number] Given 12/04/2011 Influenza Vaccine (Fluzone)( medicare) [id number] Given 12/04/2011 Influenza Vaccination [id number] Q2038 Given 12/05/2010 Influenza Vaccine (Fluzone)( medicare) 27553 Given 11/07/2010 Zostavax 79148 Given 11/08/2009 Influenza Vaccination [id number] 13346 Given 11/30/2008 Influenza Vaccination [id number] 54312 Given 12/28/2007 Pneumococcal Vaccine [id number] 43848 Given 12/28/2007 Influenza Vaccination [id number] 33943 Given 12/30/2006 Influenza Vaccination [id number] 29926 Given 12/18/2005 Influenza Vaccination [id number] 32207 Given 12/07/2004 Influenza Vaccination [id number] 11091 Given 12/25/2001 Influenza Vaccine Vital Signs Date Vital Result Comment 11/24/2019 3:01pm BP Systolic 145 mmHg BP Diastolic 93 mmHg BP Systolic Recheck 127 mmHg recheck BP Diastolic Recheck 84 mmHg recheck Heart Rate 89 /min Body Temperature 98.2 F Respiratory Rate 18 /min Height 58 inches 4'10" Weight 133.50 lb O2 % [facility] Oximetry 98 % [place] Body Weight 100 lb BMI (Body Mass Index) 27.9 kg/m2 09/15/2019 11:06am BP Systolic 147 mmHg BP Diastolic 102 mmHg BP Systolic Recheck 138 mmHg manual re check BP Diastolic Recheck 86 mmHg manual re check Heart Rate 99 /min Body Temperature 98.2 F Respiratory Rate 14 /min Height 58 inches 4'10" Weight 130.12 lb O2 % [facility] Oximetry 98 % [place] Body Weight 100 lb BMI (Body Mass Index) 27.2 kg/m2 Results Test Acquired Date Facility Test Result H/L Range Note Ua W/ Reflex To Culture 03/18/2020 [place] [address] [phone] Appearance, Urine RFX CLOUDY High Clear Color, Urine RFX YELLOW Normal Yellow PH,Urine RFX 5.0 units Normal 5.0-9.0 Specific [place] [facility] RFX 1.010 Normal 1.002-1.035 Protein, [...] Culture 03/18/[address] [place] [address] [phone] Reflex Urine Culture FULL REPORT IN L <SEE NOTE> Norm al 1 Liver Profile 03/18/2020 [place] [address] [phone] Ast/Sgot 78 U/L High 7-37 Alt/SGPT 40 U/L Normal 12-78 Alkaline Phosphatase 123 U/L High 45-117 Bilirubin,Total 1.1 mg/dL High 0.2-1.0 Bilirubin,Direct 0.5 mg/dL High 0.0-0.2 Total Protein 5.7 GM/DL Low 6.4-8.2 Albumin 2.6 GM/DL Low 3.2-5.2 Albumin/Globulin Ratio 0.8 Low 1.2-2.2 Basic Metabolic Profile 03/18/2020 Patient Service [place], [place] [id number] [phone] Glucose, Fasting 81 mg/dL Normal 70-100 Blood [...] 8.8-10.2 Laboratory test finding 03/18/2020 [place] [address] [phone] Thyroid Stimulating Hormone 1.260 uIU/ML Normal 0. 358-3.740 Free T4 1.48 ng/dL High 0.76-1.46 CBC With Differential 03/18/2020 [place] [address] [phone] White Blood Count 2.8 10 Low 4.0-10.0 [...] 36.0-66.0 Lymph % 14.9 % Low 24.0-44.0 [place] % 8.2 % High 0.0-5.0 Eos % 1.1 % Normal 0.0-3.0 Baso % 0.4 % Normal 0.0-1.0 Immature Granulocyte % 0.4 % Normal 0-3.0 Nucleated Red Blood Cell % 0.0 % Normal 0-0 Neutrophils # 2.1 10 Normal 1.5-8.5 Lymph # 0.4 10 Low 1.5-5.0 [place] # 0.2 10 Normal 0.0-0.8 Eos # 0.0 10 Normal 0.0-0.5 Baso # 0.0 10 Normal 0.0-0.2 Laboratory test finding 03/18/2020 [facility] [place], [place] [id number] [phone] Immature Platelet Fraction 1.6 % Normal 0.0-9 [...] Little GFR Left ESRD GFR <15 on NETWORK MGR Procedures Description No Information Available Medical Devices [...]
[2020-03-24] MEDS: NS 1,000 ML IV SCH (14:30)
--- NOTE | 2020-03-24 14:48 | REP ---
INDICATION: Altered Mental Status. COMPARISON: 03/18/2020. TECHNIQUE: SINGLE PORTABLE AP VIEW OF THE CHEST WAS PERFORMED. FINDINGS: The patient is rotated toward the left. There is a very large hiatal hernia. Heart mediastinum are unchanged with calcification and ectasia of the thoracic aorta. Diffuse interstitial prominence is stable. 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 IMPRESSION: Stable exam. <Electronically signed by Daniel Salazar > 03/24/20 3140
--- OUTSIDE RECORDS SUMMARY | 2020-03-24 15:05 | CCD ---
Author Author [facility] Organization [facility] Address Unknown Phone Unavailable Care Team Providers Care Supervisor [employer] Name Role Phone Xavier Evans MD Unavailable [...] Unavailable Unavailable Xavier Evans MD Unavailable Unavailable Xaveir Evans MD Unavailable Unavailable Xavier Evans MD Unavailable Unavailable Xavier Evans MD Unavailable Unavailable Xavier Evans MD Unavailable Unavailable Xavier Evans MD Unavailable Unavailable Xavier Evans MD Unavailable Unavailable Xavier Evasn MD Unavailable Unavailable Xavier Evans MD Unavailable [...] Unavailable Unavailable Jay Evanstech Unavailable Unavailable Jay Evnastech Unavailable Unavailable Jay Evanstech Unavailable Unavailable Jay [...] Unavailable Unavailable Jay Evanstech Unavailable Unavailable Petrancosta, Dickson Vilma PA-C Unavailable Unavailabl e Petrancosta, Dickson Vilma PA-C Unavailable Unavailabl e Petrancosta, Dickson Vilma PA-C Unavailable Unavailabl e Petrancosta, Dickson Vilma PA-C Unavailable Unavailabl e Petrancosta, Dickson Vilma PA-C Unavailable Unavailabl e Petrancosta, Dickson Vilma PA-C Unavailable Unavailabl e Petrancosta, Dickson Vilma PA-C Unavailable Unavailabl e Petrancosta, Dickson Vilma PA-C Unavailable Unavailabl e Petrancosta, Dickson Vilma PA-C Unavailable Unavailabl e Petrancosta, Dickson Vilma PA-C Unavailable Unavailabl e Petrancosta, Dickson Vilma PA-C Unavailable Unavailabl e Petrancosta, Dickson Vilma PA-C Unavailable Unavailabl e Petrancosta, Dickson Vilma PA-C Unavailable Unavailabl e Petrancosta, Dickson Vilma PA-C Unavailable Unavailabl e Petrancosta, Dickson Vilma PA-C Unavailable Unavailabl e Petrancosta, Dickson Vilma PA-C Unavailable Unavailabl e Petrancosta, Dickson Vilma PA-C Unavailable Unavailabl e Petrancosta, Dickson Vilma PA-C Unavailable Unavailabl e Petrancosta, Dickson Vilma PA-C Unavailable Unavailabl e Petrancosta, Dickson Vilma PA-C Unavailable Unavailabl e Petrancosta, Dickson Vilma PA-C Unavailable Unavailabl e Petrancosta, Dickson Vilma PA-C Unavailable Unavailabl e [place], N Wagner CLAIMS ADMINISTRATOR Unavailable Unavailable Opal, N Wagner CLAIMS ADMINISTRATOR Unavailable Unavailable [place], N Wagner CLAIMS ADMINISTRATOR Unavailable Unavailable [place], N Wagner CLAIMS ADMINISTRATOR Unavailable Unavailable Opal, N Wagner CLAIMS ADMINISTRATOR Unavailable Unavailable [place], N Wagner CLAIMS ADMINISTRATOR Unavailable Unavailable Opal, N Wagner CLAIMS ADMINISTRATOR Unavailable Unavailable Opal, N Wagner CLAIMS ADMINISTRATOR Unavailable Unavailable Opal, N Wagner CLAIMS ADMINISTRATOR Unavailable Unavailable Opal, N Wagner CLAIMS ADMINISTRATOR Unavailable Unavailable Opal, N Wagner CLAIMS ADMINISTRATOR Unavailable Unavailable [place], N Wagner CLAIMS ADMINISTRATOR Unavailable Unavailable Opal, N Wagner CLAIMS ADMINISTRATOR Unavailable Unavailable Opal, N Wagner CLAIMS ADMINISTRATOR Unavailable Unavailable [place], N Wagner CLAIMS ADMINISTRATOR Unavailable Unavailable [place], N Wagner CLAIMS ADMINISTRATOR Unavailable Unavailable Opal, N Wagner CLAIMS ADMINISTRATOR Unavailable Unavailable [place], N Wagner CLAIMS ADMINISTRATOR Unavailable Unavailable Opal, N Wagner CLAIMS ADMINISTRATOR Unavailable Unavailable Opal, N Wagner CLAIMS ADMINISTRATOR Unavailable Unavailable [place], N Wagner CLAIMS ADMINISTRATOR Unavailable Unavailable [place], N Wagner CLAIMS ADMINISTRATOR Unavailable Unavailable Opal, N Wagner CLAIMS ADMINISTRATOR Unavailable Unavailable Opal, N Wagner CLAIMS ADMINISTRATOR Unavailable Unavailable Opal, N Wagner CLAIMS ADMINISTRATOR Unavailable Unavailable Opal, N Wagner CLAIMS ADMINISTRATOR Unavailable Unavailable [place], N Wagner CLAIMS ADMINISTRATOR Unavailable Unavailable [place], N Wagner CLAIMS ADMINISTRATOR Unavailable Unavailable Opal, N Wagner CLAIMS ADMINISTRATOR Unavailable Unavailable [place], N Wagner CLAIMS ADMINISTRATOR Unavailable Unavailable Santamaria, Alina CLAIMS ADMINISTRATOR Unavailable Unavailable Santamaria, Alina CLAIMS ADMINISTRATOR Unavailable Unavailable Santamaria, Alina CLAIMS ADMINISTRATOR Unavailable Unavailable Santamaria, Alina CLAIMS ADMINISTRATOR Unavailable Unavailable Santamaria, Alina CLAIMS ADMINISTRATOR Unavailable Unavailable Santamaria, Alina CLAIMS ADMINISTRATOR Unavailable Unavailable Santamaria, Alina CLAIMS ADMINISTRATOR Unavailable Unavailable Santamaria, Alina CLAIMS ADMINISTRATOR Unavailable Unavailable Santamaria, Alina CLAIMS ADMINISTRATOR Unavailable Unavailable Santamaria, Alina CLAIMS ADMINISTRATOR Unavailable Unavailable Santamaria, Alina CLAIMS ADMINISTRATOR Unavailable Unavailable Re-disclosure Warning The records that [...] is protected by Article 27-F of the [facility] Public Health law. If you continue you may have access to information: Regarding HIV / AIDS; Provided by facilities licensed or operated by the [facility] Office of Mental Health; or Provided by the [facility] Office for People With Developmental Disabilities. If such information is present, then the following [facility] mandated warning applies: This information has [...] law may result in a fine or long term sentence or both. A general authorization for the release of medical or other information is NOT sufficient authorization for further disc losure. Family History Family Member Name Family Member Gender Family Member Status Date o f Status Description Data Source(s) Unknown Unknown Problem [facility] ([facility]) mgm,mgf Unknown Unknown Problem [facility] ([facility] Unknown Unknown Problem [facility] ([facility] Unknown Male Problem [facility] ([facility] ) Encounters Encounter Providers Location Date Indications Data Source(s ) Outpatient Attender: Wagner GREGORY.[email or web address].CAPRI 020 12:00:00 AM EDT - 01/04/2020 03:31:06 PM EDT [facility] Outpatient Attender: Vilma Carlson PA-C Main Office 11/24/2019 02:30:00 PM EDT [facility] ([facility] Outpatient Attender: Alina leahy 11/03/2019 03:50:00 PM EDT MED[facility] ([facility]) Outpatient Attender: Vilma Carlson PA-C Main Office 09/15/2019 10:45:00 AM EDT [facility] ([facility] Outpatient Attender: Wagner GREGORY.[email or web address].CAPRI 020 12:00:00 AM EDT - 05/17/2019 01:40:39 PM EDT [facility] Outpatient Attender: Xavier GREGORY.CAPRI-[email or web address].CAPRI 01/08 12:00:00 AM EST - 01/21/2019 02:39:21 PM [facility] Immunizations Vaccine Date Status Description Data Source(s) New in 2012. IIV4 11/24/2019 03:39:00 PM EDT completed [facility] ([facility] Medications Medication Brand Name Start Date Product Form Dose Route Admi nistrative Instructions Pharmacy Instructions Status Indications Reaction Description Data Source(s) Mupirocin 0.02 MG/MG Topical Ointment Mupirocin 11/03/2019 12:00:00 AM EDT active MED[facility] ([facility]) Cephalexin 250 MG Oral Tablet Cephalexin 11/03/2019 12:00:00 AM EDT active [facility] ([facility]) Levothyroxine Sodium 0.05 MG Oral Tablet Levothyroxine Sodiu m 04/21/2019 12:00:00 AM EST ORAL active M EDENT ([facility] Ergocalciferol 10769 UNT Oral Capsule Vitamin D (Ergocalcife rol) 02/16/2019 12:00:00 AM ANILA LOBATO ([facility] Insurance Providers Payer name Policy type / Coverage type Policy ID Covered constitution party ID Covered constitution party's relationship to harmon Policy Harmon Plan Information MEDICARE [id number] SP [id number] UMR [facility] [id number] SP [id number] FOR LIFE [id number] Spo [id number] UMR [id number] [place] [id number] MEDICARE [id number] [place] [id number] [id number] MEDICARE PART A-RECURRING [id number] 18 [id number] MEDICARE C [id number] S [id number] UMR O [id number] S [id number] FOR LIFE O [id number] S [id number] [facility] PART B C [id number] S [id number] MEDICARE [id number] SP [id number] A Emp/United Healthcare Medigap Part B [id number] Family Depen dent [id number] For Life Medigap Part B [id number] Family Dependent [id number] Umr Medigap Part B [id number] Self [id number] [place] Primary [id number] Self [id number] Emp/United Healthcare Medigap Part B [id number] Family Depen dent [id number] For Life Medigap Part B [id number] Family Dependent [id number] Umr Medigap Part B [id number] Self [id number] [place] Primary [id number] Self [id number] Emp/United Healthcare Medigap Part B [id number] Family Depen dent [id number] For Life Medigap Part B [id number] Family Dependent [id number] Umr Medigap Part B [id number] Self [id number] [place] Primary [id number] Self [id number] Emp/United Healthcare Medigap Part B [id number] Family Depen dent [id number] For Life Medigap Part B [id number] Family Dependent [id number] Umr Medigap Part B [id number] Self [id number] Medicare [place] Primary [id number] Self [id number] For Life WPS Medigap Part B [id number] Self [id number] Umr/Uhc/[employer] Medigap Part B [id number] Self [id number] Medicare Natl Gov't Servi Medicare Primary [id number] Self [id number] Emp/United Healthcare Medigap Part B [id number] Family Depen dent [id number] For Life Medigap Part B [id number] Family Dependent [id number] Umr Medigap Part B [id number] Self [id number] [place] Primary [id number] Self [id number] UMR O [id number] S [id number] MEDICARE [id number] S [id number] A Emp/United Healthcare Medigap Part B [id number] Family Depen dent [id number] For Life Medigap Part B [id number] Family Dependent [id number] Umr Medigap Part B [id number] Self [id number] [place] Primary [id number] Self [id number] POMCO-RECURRING [id number] 18 [id number] UMR UNITED HEALTH CARE [id number] SP [id number] POMCO [id number] SP [id number] Emp/United Healthcare Medigap Part B [id number] Family Depen dent [id number] For Life Medigap Part B [id number] Family Dependent [id number] [place] Medigap Part B [id number] Self [id number] 1918 Medicare [place] Medicare Primary [id number] Self [id number] Emp/United Healthcare Medigap Part B [id number] Family Depen dent [id number] For Life Medigap Part B [id number] Family Dependent [id number] [place] Medigap Part B [id number] Self [id number] 1918 Medicare [place] Primary [id number] Self [id number] POMCO PPO O [id number] S [id number] FOR LIFE [id number] HU2 0 [id number] Emp/United Healthcare Medigap Part B [id number] Family Depen dent [id number] For Life Medigap Part B [id number] Family Dependent [id number] [place] Medigap Part B [id number] Self [id number] 1918 Medicare [place] Medicare Primary [id number] Self [id number] WPS For Life Medigap Part B [id number] Self [id number] [place] Medigap Part B [id number] Self [id number] 1918 Medicare [place]/[facility] Medicare Primary [id number] Self [id number] POMCO [id number] SP [id number] FOR LIFE [id number] SP [id number] Emp/United Healthcare Medigap Part B [id number] Family Depen dent [id number] For Life Medigap Part B [id number] Family Dependent [id number] [place] Medigap Part B [id number] Self [id number] 1918 Medicare [place] Medicare Primary [id number] Self [id number] Emp/United Healthcare Medigap Part B [id number] Family Depen dent [id number] For Life Medigap Part B [id number] Family Dependent [id number] [place] Medigap Part B [id number] Self [id number] 1918 Medicare [place] Medicare Primary [id number] Self [id number] WPS For Life Medigap Part B [id number] Self [id number] [place] Medigap Part B [id number] Self [id number] 1918 Medicare [place]/NGS Medicare Primary [id number] Self [id number] Emp/United Healthcare Medigap Part B [id number] Family Depen dent [id number] For Life Medigap Part B [id number] Family Dependent [id number] [place] Medigap Part B [id number] Self [id number] 1918 Medicare [place] Medicare Primary [id number] Self [id number] [employer] [id number] Self [id number] For Life WPS Medigap Part B [id number] Self [id number] [place] Medigap Part B [id number] Self [id number] 1918 Medicare Natl Gov't Servi Medicare Primary [id number] Self [id number] [facility] (TFL) Medigap Part B [id number] Family Dep endent [id number] Medicare [place] Medicare Primary [id number] Self [id number] Pom[place] (pr) Medigap Part B [id number] Self [id number] [place] [employer] (TFL) Medigap Part B [id number] Family Dep endent [id number] Medicare [place] Medicare Primary [id number] Self [id number] Emp/United Healthcare Medigap Part B [id number] Family Depen dent [id number] For Life Medigap Part B [id number] Family Dependent [id number] [place] Medigap Part B [id number] Self [id number] 1918 Medicare [place] Medicare Primary [id number] Self [id number] [place] [employer] (TFL) Medigap Part B [id number] Family Dep endent [id number] Medicare [place] Medicare Primary [id number] Self [id number] POMCO PPO O [id number] S [id number] [place] [employer] (TFL) Medigap Part B [id number] Family Dep endent [id number] Medicare [place] Medicare Primary [id number] Self [id number] For Life Medigap Part B Family Dependent Emp/United Healthcare Medigap Part B Family Depend ent [place] Medigap Part B Self Medicare [place] Medicare Primary Self [employer] Workers Compensation Self For Life WPS Medigap Part B Self [place] Medigap Part B Self Medicare Natl Gov't Servi Medicare Primary Self POMCO [id number] SP [id number] PGBA [place] [id number] SP [id number] Emp/United Healthcare Medigap Part B Family Depend ent Health [employer] Medigap Part B Family Depe ndent P UNAVAILABLE UNAVAILA BLE TRAVELERS NO FAULT P [id number] S [id number] TRAVELERS NO FAULT [id number] SP [id number] POMCO U [id number] Self [id number] A Problems, Conditions, and Diagnoses Code Display Name Description Problem Type Effective Dates Data Source(s) R42 Dizziness and giddiness Dizziness and giddiness Diagno sis 01/04/2020 02:56:53 PM EDT [facility] I10 Essential (primary) hypertension Essential (primary) h ypertension Diagnosis 01/04/2020 02:56:53 PM EDT [facility] E78.2 Mixed hyperlipidemia Mixed hyperlipidemia Diagnosis 01/04/2020 02:56:53 PM EDT [facility] I48.91 Unspecified atrial fibrillation Unspecified atri al fibrillation Diagnosis 01/04/2020 02:56:53 PM EDT [facility] Results ID Date Data Source [id number] 03/18/2020 05:56:00 PM EST [facility] ([facility] [...] 26 S</content>
<content></content> ID Date Data Source [id number] 03/18/2020 05:56:00 PM EST [facility] ([facility] Name Value Range Interpretation Code Description Data Magdalena rce(s) Supporting Document(s) PH,Urine RFX 5.0 units 5.0-9.0 [facility] ([facility] Color, Urine RFX Laboratory test result [facility] ([facility] Appearance, Urine RFX Laboratory test result [facility] ([facility] Specific [place] Ur Auto RFX 1.010 1.002-1.035 [facility] ([facility] [...] [facility] ID Date Data Source [id number] 03/18/2020 04:13:00 PM EST [facility] ([facility] Name Value Range Interpretation Code Description Data Magdalena rce(s) Supporting Document(s) Platelets reticulated/100 platelets in Blood by Automated count 1.6 % 0.0-9.59 [facility] ([facility] ID Date Data Source [id number] 03/18/2020 04:13:00 PM EST [facility] ([facility] [...] % 24.0-44.0 [facility] ([facility] Slope % 8.2 % 0.0-5.0 [facility] ([facility] bruno [...] 10 1.5-5.0 [facility] ([facility] Slope # 0.2 10 0.0-0.8 [facility] ([facility] Baso # 0.0 10 0.0-0.2 [facility] ([facility] Eos # 0.0 10 0.0-0.5 [facility] ([facility] ID Date Data Source [id number] 03/18/2020 04:13:00 PM EST [facility] ([facility] Name Value Range Interpretation Code Description Data Magdalena rce(s) Supporting Document(s) Thyrotropin [Units/volume] in Serum or Plasma 1.260 uIU/ML 0.358-3.74 0 [facility] ([facility] Thyroxine (T4) free [Mass/volume] in Serum or Plasma 1.48 ng/dL 0.76- 1.46 [facility] ([facility] ID Date Data Source [id number] 03/18/2020 04:13:00 PM EST [facility] ([facility] [...] Little GFR Left</content>
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
<content></content> Sodium Level 132 meq/L 136-145 [facility] [...] [facility] ID Date Data Source [id number] 03/18/2020 04:13:00 PM EST [facility] ([facility] Name Value Range Interpretation Code Description Data Magdalena rce(s) Supporting Document(s) Alt/SGPT 40 U/L 12-78 [facility] ([facility] Ast/Sgot 78 U/L 7-37 [facility] ([facility] Bilirubin,Total 1.1 mg/dL 0.2-1.0 [facility] ([facility] Bilirubin,Direct 0.5 mg/dL 0.0-0.2 [facility] ([facility] Alkaline Phosphatase 123 U/L 45-117 [facility] ([facility] Albumin 2.6 GM/DL 3.2-5.2 [facility] ([facility] Total Protein 5.7 GM/DL 6.4-8.2 [facility] ([facility] Albumin/Globulin Ratio 0.8 1.2-2.2 [facility] ([facility] ID Date Data Source [id number] 08/26/2019 01:18:00 PM EDT [facility] ([facility] Name Value Range Interpretation Code Description Data Magdalena rce(s) Supporting Document(s) Thyrotropin [Units/volume] in Serum or Plasma 1.680 uIU/ML 0.358-3.74 0 [facility] ([facility] Thyroxine (T4) free [Mass/volume] in Serum or Plasma 1.39 ng/dL 0.76- 1.46 [facility] ([facility] ID Date Data Source [id number] 04/20/2019 03:10:00 PM EST [facility] ([facility] [...] co mpleted Patient has never smoked [facility] ([facility]) Vital Signs ID Date Data Source UNK Name Value Range Interpretation Code Description Data Source(s) Body mass index (BMI) [Ratio] 27.9 kg/m2 27.9 k g/m2 [facility] ([facility] [place] body weight 100 [lb_av] 100 [lb_av] MEDEN [...] Systolic blood pressure 145 mm[Hg] 145 [facility] Body mass index (BMI) [Ratio] 26.3 kg/m2 26.3 k g/m2 [facility] ([facility]) Body height 59 [in_i] 59 [in_i] [facility] ([facility]) 4'11" Body weight 130.00 [lb_av] 130.00 [lb_av] MEDEN T ([facility]) Body temperature 97.9 [degF] 97.9 [degF] [facility] ([facility]) Oxygen saturation in Arterial blood by Pulse oximetry 100 % 100 % [facility] Respiratory rate 12 /min 12 /min [facility] Heart rate 92 /min 92 /min [facility] ([facility]) Diastolic blood pressure 68 mm[Hg] 68 mm[Hg] [facility] ([facility]) Systolic blood pressure 124 mm[Hg] 124 mm[Hg[facility] Body mass index (BMI) [Ratio] 27.2 kg/m2 27.2 k g/m2 [facility] ([facility] [place] body weight 100 [lb_av] 100 [lb_av] MEDEN T ([facility] Oxygen saturation in Arterial blood by Pulse oximetry 98 % 98 % [facility] ([facility] Body weight 130.12 [lb_av] 130.12 [lb_av] MEDEN T ([facility] [...]
[2020-03-24 15:16] LABS: VENOUS BASE EXCESS -2.5 (-2.0-2.0); VENOUS HCO3 23.7 MEQ/L (23.0-27.0); VENOUS PARTIAL PRESSURE CO2 46.9 mmHg (38.0-50.0); VENOUS PARTIAL PRESSURE O2 30.9 mmHg (30.0-50.0); VENOUS PH 7.322 UNITS (7.330-7.430); VENOUS STANDARD HCO3 21.4 MEQ/L; VENOUS TOTAL CO2 25.2 MEQ/L (24.0-28.0)
[2020-03-24 15:36] LABS: BASO % 0.2 % (0.0-1.0); EOS % 0.9 % (0.0-3.0); HEMOGLOBIN 11.7 g/dl (12.0-15.5); LYMPH # 0.2 10^3/uL (1.5-5.0); LYMPH % 4.8 % (24.0-44.0); MEAN CORPUSCULAR HEMOGLOBIN 37.1 pg (27.0-33.0); MEAN CORPUSCULAR HGB CONC 34.4 g/dl (32.0-36.5); MEAN CORPUSCULAR VOLUME 107.9 fl (80.0-96.0); MONO # 0.2 10^3/uL (0.0-0.8); NEUTROPHILS # 3.9 10^3/uL (1.5-8.5); NEUTROPHILS % 88.2 % (36.0-66.0); PLATELET COUNT, AUTOMATED 126 10^3/uL (150-450); RED BLOOD COUNT 3.15 10^6/uL (4.00-5.40); WHITE BLOOD COUNT 4.4 10^3/uL (4.0-10.0)
[2020-03-24 15:57] LABS: ACETAMINOPHEN LEVEL < 2.0 UG/ML (10.0-30.0); ALBUMIN 2.6 GM/DL (3.2-5.2); ALT/SGPT 20 U/L (12-78); BILIRUBIN,DIRECT 0.6 MG/DL (0.0-0.2); BLOOD UREA NITROGEN 20 MG/DL (7-18); CALCIUM LEVEL 8.5 MG/DL (8.8-10.2); CARBON DIOXIDE LEVEL 28 MEQ/L (21-32); CHLORIDE LEVEL 95 MEQ/L (98-107); CK-MB VALUE MASS 1.3 NG/ML (<3.6); CPK CREATINE PHOSPHOKINASE 22 U/L (26-192); ETHYL ALCOHOL (ETHANOL) < 0.003 % (0.000-0.010); GLOMERULAR FILTRATION RATE 41.6 (>32); GLUCOSE, FASTING 95 MG/DL (70-100); MB/CK RELATIVE INDEX 5.91 (< OR =4); SALICYLATE LEVEL < 1.7 MG/DL (5.0-30.0); SODIUM LEVEL 129 MEQ/L (136-145); TOTAL PROTEIN 6.1 GM/DL (6.4-8.2); TROPONIN I < 0.02 NG/ML (< 0.10)
--- NOTE | 2020-03-24 18:17 | ECGEPIP ---
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
[2020-03-24] MEDS ORDERED: OMEP-221 PO (18:46)
[2020-03-24] MEDS ORDERED: NS 1,000 ML IV SCH (19:00)
--- NOTE | 2020-03-24 19:12 | HPEPDOC ---
General Date of Admission 03/24/20 Date of Service: Mar 24, 2020 Chief Complaint The patient is a 84-year-old female admitted with a reason for visit of Weakness. Source: Patient, RN/MD History of Present Illness 84 year old female with Afib on Eliquis, hypertension, hypothyroidism was here on 03/18/20 for generalized weakness and felling unwell and extremely thirsty since 03/14/20. Work up in the ED then showed a UTI and she was discharged from ED with ciprofloxacin. Urine culture on 03/20/20 came back ESBL Ecoli and her antibiotics was changed to Macrobid. I see from ext med history that she actually was ordered Bactrim DS. Today she comes back still feeling unwell now w ith nausea and diarrhea. She was feeling dizzy and light headed. She reports she has not been able to get out of bed for the past week. She had 3 episodes of diarrhea. her appetite has been poor and she has been able to eat only some yogurt. Today she could not walk to the kitchen due to severe dizziness and light headedness and felt she was going to fall. She lives alone. Her grandson used to live with her for the past 2 years but he got a job in [facility] [employer] [facility] so moved out 2 weeks ago. Denied coming in contact with any one who was diagnosed with COVID or with any one with cough and cold symptoms. Initially she was tachycardic at 144, Bp was 88/62. She has tested Positive for COVID on 03/24/20. She was given 1 Lof fluid in the ED with improvement of BP to 119/78. Her pulse improved to about 100. She was in Afib. Patient reports that she was taking the new antibiotic that was sent on Friday. She is being admitted for ESBL Ecoli UTI and COVID-19 infection. Home Medications Scheduled Apixaban (Eliquis) 2.5 Mg Tab, 2.5 MG PO BID, (Reported) Atenolol (Atenolol) 25 Mg Tablet, 50 MG PO DAILY, (Reported) Ergocalciferol (Vitamin D2) (Vitamin D2) 50,000 Units Cap, 50,000 UNITS PO 1XWK, (Reported) TUESDAYS Levothyroxine Sodium (Synthroid) 50 Mcg Tablet, 50 MCG PO DAILY, (Reported) Omeprazole (Omeprazole) 40 Mg Capsule.dr, 40 MG PO DAILY, (Reported) Sulfamethoxazole/Trimethoprim (Sulfamethoxazole-Tmp Ds Tablet) 1 Each Tablet, 1 TAB PO BID, (Reported) Sulfamethoxazole/Trimethoprim (Bactrim Ds Tablet) 1 Each Tablet, 1 TAB PO BID Tolterodine Tartrate (Tolterodine Tartrate ER) 4 Mg Cap.er.24h, 4 MG PO DAILY, (Reported) Scheduled PRN Alprazolam (Xanax) 0.25 Mg Tab, 0.25 MG PO Q6H PRN for ANXIETY, (Reported) Meclizine HCl (Meclizine HCl) 12.5 Mg Tablet, 12.5 MG PO TID PRN for DIZZINESS, (Reported) Allergies Coded Allergies: atorvastatin (Verified Allergy, Unknown, 03/24/20) caffeine (Verified Adverse Reaction, Mild, anxiety , 03/24/20) codeine (Verified Adverse Reaction, Mild, Blood Pressure decreases a lot, 03/24/20) propoxyphene (Verified Adverse Reaction, Mild, feel unwell, 03/24/20) rivaroxaban (Verified Adverse Reaction, Mild, Bleeding Gums, 03/24/20) tramadol (Verified Adverse Reaction, Mild, feels unwell, 03/24/20) Past Medical History Medical History ALFRED untreated H/O Hyponatremia Hypertension. Atrial fibrillation Anxiety. Hypothyroidism. Large hiatal hernia with [place] erosions and Schatzki ring, status post biopsy and dilatation. Ventral hernia. Degenerative disc disease, Scoliosis arthritis Overactive bladder IBS Surgical History Right knee replacement shoulder surgery left lumpectomy Family History Significant Family History: Diabetes (Mother, maternal grandmother, maternal aunts and uncles. ), Heart disease (maternal grandmother) Mother from stroke Social History * Smoker: Denies Alcohol: occationally Drugs: denies A-FIB/CHADSVASC A-FIB History Current/History of A-Fib/PAF?: Yes Current PO Anticoag Therapy: Yes Review of Systems Constitutional: Reports: Fever, Malaise, Weakness, Fatigue Eyes: Denies: Pain, Vision change ENT: Denies: Head Aches, Ear Pain, Dysphagia Skin: Denies: Rash, Lesions, Breakdown Pulmonary: Reports: Cough; Denies: Dyspnea Cardiovascular: Denies: Chest Pain, Palpitations, Orthopnea, Paroxysmal Noc. Dyspnea, Lt Headedness Gastrointestinal: Reports: Nausea, Vomiting, Diarrhea Genitourinary: Denies: Dysuria, Frequency, Incontinence, Retention Musculoskeletal: Reports: Back Pain, Joint Pain Neurological: Reports: Weakness Physical Examination General Exam: Positive: Alert, Cooperative, No Acute Distress Eye Exam: Positive: PERRLA, Conjunctiva & lids normal, EOMI; Negative: Sclera icteric ENT Exam: Positive: Atraumatic, Mucous membr. moist/pink, Pharynx Normal Neck Exam: Positive: Supple; Negative: JVD, thyromegaly Chest Exam: Positive: Diminished, Other (crackles at the left base up to the mid back. scoliosis present) Heart Exam: Positive: Irregular Rhythm, Normal S1, Normal S2 Telemetry: Positive: Atrial fibrillation Abdomen Exam: Positive: Normal bowel sounds, Soft; Negative: Tenderness Extremity Exam: Negative: Clubbing, Cyanosis, Edema Vital Signs Vital Signs Date Time Temp Pulse Resp B/P (MAP) Pulse Ox O2 Delivery O2 Flow Rate FiO2 03/24/20 17:34 119/78 (92) 03/24/20 13:47 97.5 144 16 97 Room Air Laboratory Data Labs 24H Laboratory Tests 2 03/24/20 15:02: Immature Granulocyte % (Auto) 0.9, Neutrophils (%) (Auto) 88.2H, Lymphocytes (%) (Auto) 4.8L, Monocytes (%) (Auto) 5.0, Eosinophils (%) (Auto) 0.9, Basophils (%) (Auto) 0.2, Neutrophils # (Auto) 3.9, Lymphocytes # (Auto) 0.2L, Monocytes # (Auto) 0.2, Eosinophils # (Auto) 0.0, Basophils # (Auto) 0.0, Nucleated Red Blood Cells % (auto) 0.0, Blood Gas Bicarbonate Standard 21.4, Venous Blood pH 7.322L, Venous Blood Partial Pressure CO2 46.9, Venous Blood Partial Pressure O2 30.9, Venous Blood Total Carbon Dioxide 25.2, Venous Blood HCO3 23.7, Venous Blood Oxygen Saturation 52.0L, Venous Blood Base Excess -2.5L, Anion Gap 6L, Glomerular Filtration Rate 41.6, Lactic Acid Level 1.7, Calcium Level 8.5L, Total Bilirubin 1.0, Direct Bilirubin 0.6H, Aspartate Amino Transf (AST/SGOT) 20, Alanine Aminotransferase (ALT/SGPT) 20, Alkaline Phosphatase 118H, Ammonia < 10, Total Creatine Kinase 22L, Creatine Kinase MB 1.3, Creatine Kinase MB Relative Index 5.91H, Troponin I < 0.02, Total Protein 6.1L, Albumin 2.6L, Albumin/Globulin Ratio 0.7L, Thyroid Stimulating Hormone (TSH) 3.030, Salicylates Level < 1.7L, Acetaminophen Level < 2.0L, Ethyl Alcohol Level < 0.003 CBC/BMP Laboratory Tests 03/24/20 15:02 Microbiology Microbiology 03/24/20 Respiratory Virus Panel (PCR) ([facility]) - Final, Complete SARS-CoV-2 (COVID 19) Assessment/Plan 84 year old female with Afib on Eliquis, hypertension, hypothyroidism was here on 03/18/20 for generalized weakness and felling unwell and extremely thirsty since 03/14/20. Work up in the ED then showed a UTI and she was discharged from ED with ciprofloxacin. Urine culture on 03/20/20 came back ESBL Ecoli and her antibiotics was changed to Macrobid. I see from ext med history that she actually was ordered Bactrim DS. Today she comes back still feeling unwell now with nausea and diarrhea. She was feeling dizzy and light headed. She reports she has not been able to get out of bed for the past week. She had 3 episodes of diarrhea. her appetite has been poor and she has been able to eat only some yogurt. Today she could not walk to the kitchen due to severe dizziness and light headedness and felt she was going to fall. She lives alone. Her grandson used to live with her for the past 2 years but he got a job in [employer] [facility] so moved out 2 weeks ago. Denied coming in contact with any one who was diagnosed with COVID or with any one with cough and cold symptoms. Initially she was tachycardic at 144, Bp was 88/62. She has tested Positive for COVID on 03/24/20. She was given 1 Lof fluid in the ED with improvement of BP to 119/78. Her pulse improved to about 100. She was in Afib. Patient reports that she was taking the new antibiotic that was sent on Friday. She is being admitted for ESBL Ecoli UTI and COVID-19 infection. ESBL Ecoli UTi will give Ertapenem COVID- 19 infection with extreme weakness and malaise no hypoxia will order COVID -19 follow up labs PT/OT eval. Lives alone. A Fib had RVR on initial presentation to ED settled down to about 100 after getting IVF. continue eliquis. will hold atenolol as was hypotensive on initial presentation If rate becomes uncontrolled will give Digoxin. Hyponatremia possibly due to poor oral intake of food and too much intake of free water Reports she was trying to push fluids to keep herself hydrated. will start on IVF. will check tomorrow am. Hypothyroid synthroid Hiatal hernia/GERD PPI. Plan / VTE VTE Prophylaxis Ordered?: Yes SUKUMAR SANDERS MD Mar 24, 2020 18:14
[2020-03-24] MEDS ORDERED: SYNT50TA PO (19:18)
[2020-03-24] MEDS ORDERED: MECL12.590 PO (19:33)
[2020-03-24] MEDS ORDERED: VITA50005 PO (19:33)
[2020-03-24] MEDS ORDERED: TOLT4CAP3 PO (19:35)
[2020-03-24] MEDS ORDERED: SULF1TAB93 PO (19:35)
--- OUTSIDE RECORDS SUMMARY | 2020-03-24 19:45 | CCD ---
Author Author [facility] Organization [facility] Address Unknown Phone Unavailable Care Team Providers Care Judo Teacher Name Role Phone Xavier Evans MD Unavailable [...] Unavailable Unavailable Jay Evanstech Unavailable Unavailable Petrancosta, Wak[place] Vilma PA-C Unavailable Unavailabl e Petrancosta, [place] Vilma PA-C Unavailable Unavailabl e Petrancosta, [place] Vilma PA-C Unavailable Unavailabl e Petrancosta, [place]ak[place] Vilma PA-C Unavailable Unavailabl e Petrancosta, Wak[place] Vilma PA-C Unavailable Unavailabl e Petrancosta, Wak[place] Vilma PA-C Unavailable Unavailabl e Petrancosta, [place] Vilma PA-C Unavailable Unavailabl e Petrancosta, [place]ak[place] Vilma PA-C Unavailable Unavailabl e Petrancosta, Wak[place] Vilma PA-C Unavailable Unavailabl e Petrancosta, [place]ak[place] Vilma PA-C Unavailable Unavailabl e Petrancosta, Wak[place] Vilma PA-C Unavailable Unavailabl e Petrancosta, Wak[place] Vilma PA-C Unavailable Unavailabl e Petrancosta, Wak[place] Vilma PA-C Unavailable Unavailabl e Petrancosta, Wak[place] Vilma PA-C Unavailable Unavailabl e Petrancosta, Wak[place] Vilma PA-C Unavailable Unavailabl e Petrancosta, Wak[place] Vilma PA-C Unavailable Unavailabl e Petrancosta, Wak[place] Vilma PA-C Unavailable Unavailabl e Petrancosta, Wak[place] Vilma PA-C Unavailable Unavailabl e Petrancosta, Wak[place] Vilma PA-C Unavailable Unavailabl e Petrancosta, Wak[place] Vilma PA-C Unavailable Unavailabl e Petrancosta, Wak[place] Vilma PA-C Unavailable Unavailabl e Petrancosta, Wak[place] Vilma PA-C Unavailable Unavailabl e Bethany, N Wagner DRIVING INSTRUCTOR Unavailable Unavailable Opal, N Wagner DRIVING INSTRUCTOR Unavailable Unavailable Bethany, N Wagner DRIVING INSTRUCTOR Unavailable Unavailable Bethany, N Wagner DRIVING INSTRUCTOR Unavailable Unavailable Opal, N Wagner DRIVING INSTRUCTOR Unavailable Unavailable Bethany, N Wagner DRIVING INSTRUCTOR Unavailable Unavailable Opal, N Wagner DRIVING INSTRUCTOR Unavailable Unavailable Opal, N Wagner DRIVING INSTRUCTOR Unavailable Unavailable Opal, N Wagner DRIVING INSTRUCTOR Unavailable Unavailable Opal, N Wagner DRIVING INSTRUCTOR Unavailable Unavailable Opal, N Wagner DRIVING INSTRUCTOR Unavailable Unavailable Bethany, N Wagner DRIVING INSTRUCTOR Unavailable Unavailable Opal, N Wagner DRIVING INSTRUCTOR Unavailable Unavailable Opal, N Wagner DRIVING INSTRUCTOR Unavailable Unavailable Bethany, N Wagner DRIVING INSTRUCTOR Unavailable Unavailable Bethany, N Wagner DRIVING INSTRUCTOR Unavailable Unavailable Opal, N Wagner DRIVING INSTRUCTOR Unavailable Unavailable Bethany, N Wagner DRIVING INSTRUCTOR Unavailable Unavailable Opal, N Wagner DRIVING INSTRUCTOR Unavailable Unavailable Opal, N Wagner DRIVING INSTRUCTOR Unavailable Unavailable Bethany, N Wagner DRIVING INSTRUCTOR Unavailable Unavailable Bethany, N Wagner DRIVING INSTRUCTOR Unavailable Unavailable Opal, N Wagner DRIVING INSTRUCTOR Unavailable Unavailable Opal, N Wagner DRIVING INSTRUCTOR Unavailable Unavailable Opal, N Wagner DRIVING INSTRUCTOR Unavailable Unavailable Opal, N Wagner DRIVING INSTRUCTOR Unavailable Unavailable Bethany, N Wagner DRIVING INSTRUCTOR Unavailable Unavailable Bethany, N Wagner DRIVING INSTRUCTOR Unavailable Unavailable Opal, N Wagner DRIVING INSTRUCTOR Unavailable Unavailable Bethany, N Wagner DRIVING INSTRUCTOR Unavailable Unavailable Santamaria, Alina DRIVING INSTRUCTOR Unavailable Unavailable Santamaria, Alina DRIVING INSTRUCTOR Unavailable Unavailable Santamaria, Alina DRIVING INSTRUCTOR Unavailable Unavailable Santamaria, Alina DRIVING INSTRUCTOR Unavailable Unavailable Santamaria, Alina DRIVING INSTRUCTOR Unavailable Unavailable Santamaria, Alina DRIVING INSTRUCTOR Unavailable Unavailable Santamaria, Alina DRIVING INSTRUCTOR Unavailable Unavailable Santamaria, Alina DRIVING INSTRUCTOR Unavailable Unavailable Santamaria, Alina DRIVING INSTRUCTOR Unavailable Unavailable Santamaria, Alina DRIVING INSTRUCTOR Unavailable Unavailable Santamaria, Alina DRIVING INSTRUCTOR Unavailable Unavailable Re-disclosure Warning The records that [...] is protected by Article 27-F of the [facility] Public Health law. If you continue you may have access to information: Regarding HIV / AIDS; Provided by facilities licensed or operated by the [facility] Office of Mental Health; or Provided by the [facility] Office for People With Developmental Disabilities. If such information is present, then the following [facility] mandated warning applies: This information has been [...] law may result in a fine or detention sentence or both. A general authorization for the release of medical or other information is NOT sufficient authorization for further disc losure. Family History Family Member Name Family Member Gender Family Member Status Date o f Status Description Data Source(s) Unknown Unknown Problem [facility] ([facility]) mgm,mgf Unknown Unknown Problem [facility] ([facility] Unknown Unknown Problem [facility] ([facility] Unknown Male Problem [facility] ([facility] ) Encounters Encounter Providers Location Date Indications Data Source(s ) Outpatient Attender: Wagner GREGORY.[email or web address].CAPRI 020 12:00:00 AM EDT - 01/04/2020 03:31:[address] [facility] [place] Outpatient Attender: Vilma Carlson PA-C Main Office 11/24/2019 02:30:00 PM EDT [facility] ([facility] Outpatient Attender: Alina leahy 11/03/2019 03:50:00 PM EDT MED[facility] ([facility] Outpatient Attender: Vilma Carlson PA-C Main Office 09/15/2019 10:45:00 AM EDT MED[facility] ([facility] Outpatient Attender: Wagner GREGORY.CAPRI-[email or web address] 020 12:00:00 AM EDT - 05/17/2019 01:40:[address] [facility] [place] Outpatient Attender: Xavier GREGORY.[email or web address].CAPRI 01/08 12:00:00 AM EST - 01/21/2019 02:39:21 PM [facility] Immunizations Vaccine Date Status Description Data Source(s) New in 2012. IIV4 11/24/2019 03:39:00 PM EDT completed MED[facility] ([facility] Medications Medication Brand Name Start Date Product Form Dose Route Admi nistrative Instructions Pharmacy Instructions Status Indications Reaction Description Data Source(s) Mupirocin 0.02 MG/MG Topical Ointment Mupirocin 11/03/2019 12:00:00 AM EDT active MED[facility] ([facility]) Cephalexin 250 MG Oral Tablet Cephalexin 11/03/2019 12:00:00 AM EDT active MED[facility] ([facility]) Levothyroxine Sodium 0.05 MG Oral Tablet Levothyroxine Sodiu m 04/21/2019 12:00:00 AM EST ORAL active M EDENT ([facility] Ergocalciferol 58802 UNT Oral Capsule Vitamin D (Ergocalcife rol) 02/16/2019 12:00:00 AM ANILA LOBATO ([facility] Insurance Providers Payer name Policy type / Coverage type Policy ID Covered green party ID Covered green party's relationship to harmon Policy Harmon Plan Information MEDICARE [id number] SP [id number] UMR [facility] [id number] SP [id number] FOR LIFE [id number] Spo [id number] UMR [id number] [place] [id number] MEDICARE [id number] [place] [id number] [id number] MEDICARE PART A-RECURRING [id number] 18 [id number] MEDICARE C [id number] S [id number] [id number] UMR O [id number] S [id number] FOR LIFE O [id number] S [id number] [facility] PART B C [id number] S [id number] MEDICARE [id number] SP [id number] A Emp/[employer] Medigap Part B [id number] Family Depen dent [id number] For Life Medigap Part B [id number] Family Dependent [id number] Umr Medigap Part B [id number] Self [id number] [place] Primary [id number] Self [id number] Emp/United Healthcare Medigap Part B [id number] Family Depen dent [id number] For Life Medigap Part B [id number] Family Dependent [id number] Umr Medigap Part B [id number] Self [id number] [place] Medicare Primary [id number] Self [id number] Emp/[employer] Medigap Part B [id number] Family Depen dent [id number] For Life Medigap Part B [id number] Family Dependent [id number] Umr Medigap Part B [id number] Self [id number] [place] Medicare Primary [id number] Self [id number] Emp/United Healthcare Medigap Part B [id number] Family Depen dent [id number] For Life Medigap Part B [id number] Family Dependent [id number] Umr Medigap Part B [id number] Self [id number] Medicare [place] Medicare Primary [id number] Self [id number] For Life WPS Medigap Part B [id number] Self [id number] Umr/Uhc/[employer] Medigap Part B [id number] Self [id number] Medicare Natl Gov't Servi Medicare Primary [id number] Self [id number] Emp/United Healthcare Medigap Part B [id number] Family Depen dent [id number] For Life Medigap Part B [id number] Family Dependent [id number] Umr Medigap Part B [id number] Self [id number] Medicare [place] Medicare Primary [id number] Self [id number] UMR O [id number] S [id number] MEDICARE [id number] S [id number] A Emp/United Healthcare Medigap Part B [id number] Family Depen dent [id number] For Life Medigap Part B [id number] Family Dependent [id number] Umr Medigap Part B [id number] Self [id number] Medicare [place] Medicare Primary [id number] Self [id number] POMCO-RECURRING [id number] 18 [id number] UMR UNITED HEALTH CARE [id number] SP [id number] POMCO [id number] SP [id number] Emp/United Healthcare Medigap Part B [id number] Family Depen dent [id number] For Life Medigap Part B [id number] Family Dependent [id number] [place] Medigap Part B [id number] Self [id number] 1918 Medicare [place] Medicare Primary [id number] Self [id number] Emp/United Healthcare Medigap Part B [id number] Family Depen dent [id number] For Life Medigap Part B [id number] Family Dependent [id number] [place] Medigap Part B [id number] Self [id number] 1918 Medicare [place] Medicare Primary [id number] Self [id number] POMCO PPO O [id number] S [id number] FOR LIFE [id number] HU2 0 [id number] Emp/United Healthcare Medigap Part B [id number] Family Depen dent [id number] For Life Medigap Part B [id number] Family Dependent [id number] [place] Medigap Part B [id number] Self [id number] 1918 Medicare [place] Medicare Primary [id number] Self [id number] WPS For Life Medigap Part B [id number] Self [id number] [place] Medigap Part B [id number] Self [id number] 1918 Medicare [place]/[facility] Medicare Primary [id number] Self [id number] POMCO [id number] SP [id number] FOR LIFE [id number] SP [id number] Emp/United Healthcare Medigap Part B [id number] Family Depen dent [id number] For Life Medigap Part B [id number] Family Dependent [id number] [place] Medigap Part B [id number] Self [id number] 1918 Medicare [place] Medicare Primary [id number] Self [id number] Emp/United Healthcare Medigap Part B [id number] Family Depen dent [id number] For Life Medigap Part B [id number] Family Dependent [id number] [place] Medigap Part B [id number] Self [id number] 1918 Medicare [place] Medicare Primary [id number] Self [id number] WPS For Life Medigap Part B [id number] Self [id number] [place] Medigap Part B [id number] Self [id number] 1918 Medicare [place]/NGS Medicare Primary [id number] Self [id number] Emp/United Healthcare Medigap Part B [id number] Family Depen dent [id number] For Life Medigap Part B [id number] Family Dependent [id number] [place] Medigap Part B [id number] Self [id number] 1918 Medicare [place] Medicare Primary [id number] Self [id number] [employer] Compensation [id number] Self [id number] For Life WPS Medigap Part B [id number] Self [id number] [place] Medigap Part B [id number] Self [id number] 1918 Medicare Natl Gov't Servi Medicare Primary [id number] Self [id number] [facility]) Med[facility] Part B [id number] Family Dep endent [id number] Medicare [place] Medicare Primary [id number] Self [id number] [place] (pr) Medigap Part B [id number] Self [id number] [place] [facility] [employer] (TFL) Medigap Part B [id number] Family Dep endent [id number] Medicare [place] Medicare Primary [id number] Self [id number] Emp/United Healthcare Medigap Part B [id number] Family Depen dent [id number] For Life Medigap Part B [id number] Family Dependent [id number] [place] Medigap Part B [id number] Self [id number] 1918 Medicare [place] Medicare Primary [id number] Self [id number] [place] [employer] (TFL) Medigap Part B [id number] Family Dep endent [id number] Medicare [place] Medicare Primary [id number] Self [id number] POMCO PPO O [id number] S [id number] [place] [employer] (TFL) Medigap Part B [id number] Family Dep endent [id number] Medicare [place] Medicare Primary [id number] Self [id number] For Life Medigap Part B Family Dependent Emp/United Healthcare Medigap Part B Family Depend ent [place] Medigap Part B Self Medicare [place] Medicare Primary Self [employer] Workers Compensation Self For Life WPS Medigap Part B Self [place] Medigap Part B Self Medicare Natl Gov't Servi Medicare Primary Self POMCO [id number] SP [id number] [facility] [place] [id number] SP [id number] Emp/United Healthcare Medigap Part B Family Depend ent Health [employer] Medigap Part B Family Depe ndent P UNAVAILABLE UNAVAILA BLE TRAVELERS NO FAULT P [id number] S [id number] TRAVELERS NO FAULT [id number] SP [id number] POMCO U [id number] Self [id number] A Problems, Conditions, and Diagnoses Code Display Name Description Problem Type Effective Dates Data Source(s) R42 Dizziness and giddiness Dizziness and giddiness Diagno sis 01/04/2020 02:56:53 PM EDT [facility] I10 Essential (primary) hypertension Essential (primary) h ypertension Diagnosis 01/04/2020 02:56:53 PM EDT [facility] E78.2 Mixed hyperlipidemia Mixed hyperlipidemia Diagnosis 01/04/2020 02:56:53 PM EDT [facility] I48.91 Unspecified atrial fibrillation Unspecified atri al fibrillation Diagnosis 01/04/2020 02:56:53 PM EDT [facility] Results ID Date Data Source [id number] 03/18/2020 05:56:00 PM EST MED[facility] ([facility] [...] 26 S</content>
<content></content> ID Date Data Source [id number] 03/18/2020 05:56:00 PM EST [facility] ([facility] Name Value Range Interpretation Code Description Data Magdalena rce(s) Supporting Document(s) PH,Urine RFX 5.0 units 5.0-9.0 [facility] ([facility] Color, Urine RFX Laboratory test result [facility] ([facility] Appearance, Urine RFX Laboratory test result [facility] ([facility] Specific Banks Ur Auto RFX 1.010 1.002-1.035 [facility] ([facility] [...] [facility] ID Date Data Source [id number] 03/18/2020 04:13:00 PM EST [facility] ([facility] Name Value Range Interpretation Code Description Data Magdalena rce(s) Supporting Document(s) Platelets reticulated/100 platelets in Blood by Automated count 1.6 % 0.0-9.59 [facility] ([facility] ID Date Data Source [id number] 03/18/2020 04:13:00 PM EST [facility] ([facility] [...] % 24.0-44.0 [facility] ([facility] [place] % 8.2 % 0.0-5.0 [facility] ([facility] bruno [...] 10 1.5-5.0 [facility] ([facility] [place] # 0.2 10 0.0-0.8 [facility] ([facility] Baso # 0.0 10 0.0-0.2 [facility] ([facility] Eos # 0.0 10 0.0-0.5 [facility] ([facility] ID Date Data Source [id number] 03/18/2020 04:13:00 PM EST [facility] ([facility] Name Value Range Interpretation Code Description Data Magdalena rce(s) Supporting Document(s) Thyrotropin [Units/volume] in Serum or Plasma 1.260 uIU/ML 0.358-3.74 0 [facility] ([facility] Thyroxine (T4) free [Mass/volume] in Serum or Plasma 1.48 ng/dL 0.76- 1.46 [facility] ([facility] ID Date Data Source [id number] 03/18/2020 04:13:00 PM EST [facility] ([facility] [...] Little GFR Left</content>
<content>ESRD GFR <15 on JUDO TEACHER</content>
<content></content> Sodium Level 132 meq/L 136-145 MED[facility] [...] [facility] ID Date Data Source [id number] 03/18/2020 04:13:00 PM EST [facility] ([facility] [...] [facility] ID Date Data Source [id number] 08/26/2019 01:18:00 PM EDT [facility] ([facility] Name Value Range Interpretation Code Description Data Magdalena rce(s) Supporting Document(s) Thyrotropin [Units/volume] in Serum or Plasma 1.680 uIU/ML 0.358-3.74 0 [facility] ([facility] Thyroxine (T4) free [Mass/volume] in Serum or Plasma 1.39 ng/dL 0.76- 1.46 [facility] ([facility] ID Date Data Source [id number] 04/20/2019 03:10:00 PM EST [facility] ([facility] [...] co mpleted Patient has never smoked [facility] ([facility]) Vital Signs ID Date Data Source [id number] Name Value Range Interpretation Code Description Data Source(s) Body mass index (BMI) [Ratio] 27.9 kg/m2 27.9 k g/m2 [facility] ([facility] [place] body weight 100 [lb_av] 100 [lb_av] MEDEN [...] Systolic blood pressure 145 mm[Hg] 145 mm[facility]Hg] [facility] Body mass index (BMI) [Ratio] 26.3 kg/m2 26.3 k g/m2 [facility] ([facility]) Body height 59 [in_i] 59 [in_i] [facility] ([facility]) 4'11" Body weight 130.00 [lb_av] 130.00 [lb_av] MEDEN T ([facility]) Body temperature 97.9 [degF] 97.9 [degF] [facility] ([facility]) Oxygen saturation in Arterial blood by Pulse oximetry 100 % 100 % [facility] Respiratory rate 12 /min 12 /min [facility] Heart rate 92 /min 92 /min [facility] ([facility]) Diastolic blood pressure 68 mm[Hg] 68 mm[Hg] [facility] ([facility]) Systolic blood pressure 124 mm[Hg] 124 mm[Hg] [facility] Body mass index (BMI) [Ratio] 27.2 kg/m2 27.2 k g/m2 [facility] ([facility] [place] body weight 100 [lb_av] 100 [lb_av] MEDEN [...]
[2020-03-24] MEDS ORDERED: MECLIZINE 12.5 MG TAB PO PRN (20:00)
[2020-03-24] MEDS: ERTAPENEM SODIUM 1 GM in NS MINI-BAG PLUS 50 ML IV SCH (23:23)
[2020-03-24] MEDS: APIXABAN 2.5 MG TAB (ELIQUIS) PO SCH (23:23)
[2020-03-25 02:34] VITALS: BP 164/84
[2020-03-25] MEDS: LEVOTHYROXINE 50MCG TABLET (0.05MG) PO SCH (05:14)
[2020-03-25] MEDS: ALPRAZolam 0.25 MG TAB PO PRN ×2 (05:14→19:56)
[2020-03-25] MEDS: NS 1,000 ML IV SCH (05:15)
[2020-03-25 07:48] LABS: BASO % 0.3 % (0.0-1.0); EOS # 0.1 10^3/uL (0.0-0.5); EOS % 1.4 % (0.0-3.0); HEMATOCRIT 35.1 % (36.0-47.0); HEMOGLOBIN 11.6 g/dl (12.0-15.5); LYMPH # 0.2 10^3/uL (1.5-5.0); LYMPH % 5.5 % (24.0-44.0); MEAN CORPUSCULAR HEMOGLOBIN 36.9 pg (27.0-33.0); MEAN CORPUSCULAR VOLUME 111.8 fl (80.0-96.0); MONO # 0.2 10^3/uL (0.0-0.8); MONO % 5.8 % (0.0-5.0); NEUTROPHILS # 3.2 10^3/uL (1.5-8.5); NEUTROPHILS % 86.7 % (36.0-66.0); PLATELET COUNT, AUTOMATED 141 10^3/uL (150-450); RED BLOOD COUNT 3.14 10^6/uL (4.00-5.40); WHITE BLOOD COUNT 3.6 10^3/uL (4.0-10.0)
[2020-03-25 08:15] LABS: INR 1.25
[2020-03-25 08:17] LABS: ALBUMIN 2.4 GM/DL (3.2-5.2); BILIRUBIN,TOTAL 0.7 MG/DL (0.2-1.0); C REACTIVE PROTEIN QUANTITATIV 5.02 MG/DL (0.00-0.30); CALCIUM LEVEL 7.7 MG/DL (8.8-10.2); CREATININE FOR GFR 0.98 MG/DL (0.55-1.30); GLOMERULAR FILTRATION RATE 57.7 (>32); MAGNESIUM LEVEL 1.6 MG/DL (1.8-2.4); POTASSIUM SERUM 4.5 MEQ/L (3.5-5.1); TOTAL PROTEIN 5.5 GM/DL (6.4-8.2)
[2020-03-25] MEDS ORDERED: atenoloL 25 MG TAB PO SCH (09:00)
[2020-03-25] MEDS ORDERED: MAG SULF 1GM/100ML (MAG RUN) 1 GM in IV 1 EA IV ONE (09:30)
[2020-03-25] MEDS: APIXABAN 2.5 MG TAB (ELIQUIS) PO SCH ×2 (10:08→19:56)
[2020-03-25] MEDS: TOLTERODINE TARTRATE 2 MG LA CAP (DETROL LA) PO SCH (10:08)
[2020-03-25] MEDS: atenoloL 25 MG TAB PO SCH (10:16)
--- NOTE | 2020-03-25 12:20 | IPNPDOC ---
Subjective Date Seen The patient was seen on 03/25/20. Subjective Chief Complaint/HPI Still very weak and tired. Continues to have dizziness and very poor appetite. Seen by PT, Move with 1 assist. Objective Physical Examination General Exam: Positive: Alert, Cooperative, No Acute Distress Eye Exam: Positive: PERRLA, Conjunctiva & lids normal, EOMI; Negative: Sclera icteric ENT Exam: Positive: Atraumatic, Mucous membr. moist/pink, Pharynx Normal Neck Exam: Positive: Supple; Negative: JVD, thyromegaly Chest Exam: Positive: Diminished, Other (crackles at the left base up to the mid back. scoliosis present) Heart Exam: Positive: Irregular Rhythm, Normal S1, Normal S2 Telemetry: Positive: Atrial fibrillation Abdomen Exam: Positive: Normal bowel sounds, Soft; Negative: Tenderness Extremity Exam: Negative: Clubbing, Cyanosis, Edema Assessment /Plan Assessment 84 year old female with Afib on Eliquis, hypertension, hypothyroidism was here on 03/18/20 for generalized weakness and felling unwell and extremely thirsty since 03/14/20. Work up in the ED then showed a UTI and she was discharged from ED with ciprofloxacin. Urine culture on 03/20/20 came back ESBL Ecoli and her antibiotics was changed to Macrobid. I see from ext med history that she actually was ordered Bactrim DS. Today she comes back still feeling unwell now with nausea and diarrhea. She was feeling dizzy and light headed. She reports she has not been able to get out of bed for the past week. She had 3 episodes of diarrhea. her appetite has been poor and she has been able to eat only some yogurt. Today she could not walk to the kitchen due to severe dizziness and light headedness and felt she was going to fall. She lives alone. Her grandson used to live with her for the past 2 years but he got a job in [facility] so moved out 2 weeks ago. Denied coming in contact with any one who was diagnosed with COVID or with any one with cough and cold symptoms. Initially she was tachycardic at 144, Bp was 88/62. She has tested Positive for COVID on 03/24/20. She was given 1 Lof fluid in the ED with improvement of BP to 119/78. Her pulse improved to about 100. She was in Afib. Patient reports that she was taking the new antibiotic that was sent on Friday. She is being admitted for ESBL Ecoli UTI and COVID-19 infection. ESBL Ecoli UTI from urine culture on 03/18/20 Ertapenem COVID- 19 infection with extreme weakness and malaise no hypoxia will order COVID -19 follow up labs PT/OT Lives alone. A Cosmo had RVR on initial presentation to ED settled down to about 100 after getting IVF. continue eliquis. will hold atenolol as was hypotensive on initial presentation If rate becomes uncontrolled will give Digoxin. Hyponatremia possibly due to poor oral intake of food and too much intake of free water Reports she was trying to push fluids to keep herself hydrated. will start on IVF. will check tomorrow am. Hypothyroid synthroid Hiatal hernia/GERD PPI. Plan/VTE VTE Prophylaxis Ordered?: Yes VS, I&O, 24H, Fishbone Vital Signs/I&O Vital Signs Date Time Temp Pulse Resp B/P (MAP) Pulse Ox O2 Delivery O2 Flow Rate FiO2 03/25/20 10:16 111 119/70 03/25/20 02:34 99.0 20 93 Room Air I&O- Last 24 Hours up to 6 AM 03/25/20 06:00 Intake Total 712.5 ml Balance 712.5 ml Laboratory Data 24H LABS Laboratory Tests 2 03/24/20 15:02: Immature Granulocyte % (Auto) 0.9, Neutrophils (%) (Auto) 88.2H, Lymphocytes (%) (Auto) 4.8L, Monocytes (%) (Auto) 5.0, Eosinophils (%) (Auto) 0.9, Basophils (%) (Auto) 0.2, Neutrophils # (Auto) 3.9, Lymphocytes # (Auto) 0.2L, Monocytes # (Auto) 0.2, Eosinophils # (Auto) 0.0, Basophils # (Auto) 0.0, Nucleated Red Blood Cells % (auto) 0.0, Blood Gas Bicarbonate Standard 21.4, Venous Blood pH 7.322L, Venous Blood Partial Pressure CO2 46.9, Venous Blood Partial Pressure O2 30.9, Venous Blood Total Carbon Dioxide 25.2, Venous Blood HCO3 23.7, Venous Blood Oxygen Saturation 52.0L, Venous Blood Base Excess -2.5L, Anion Gap 6L, Glomerular Filtration Rate 41.6, Lactic Acid Level 1.7, Calcium Level 8.5L, Total Bilirubin 1.0, Direct Bilirubin 0.6H, Aspartate Amino Transf (AST/SGOT) 20, Alanine Aminotransferase (ALT/SGPT) 20, Alkaline Phosphatase 118H, Ammonia < 10, Total Creatine Kinase 22L, Creatine Kinase MB 1.3, Creatine Kinase MB Relative Index 5.91H, Troponin I < 0.02, Total Protein 6.1L, Albumin 2.6L, Albumin/Globulin Ratio 0.7L, Thyroid Stimulating Hormone (TSH) 3.030, Salicylates Level < 1.7L, Acetaminophen Level < 2.0L, Ethyl Alcohol Level < 0.003 03/25/20 06:33: Immature Granulocyte % (Auto) 0.3, Neutrophils (%) (Auto) 86.7H, Lymphocytes (%) (Auto) 5.5L, Monocytes (%) (Auto) 5.8H, Eosinophils (%) (Auto) 1.4, Basophils (%) (Auto) 0.3, Neutrophils # (Auto) 3.2, Lymphocytes # (Auto) 0.2L, Monocytes # (Auto) 0.2, Eosinophils # (Auto) 0.1, Basophils # (Auto) 0.0, Nucleated Red Blood Cells % (auto) 0.0, Anion Gap 9, Glomerular Filtration Rate 57.7, Calcium Level 7.7L, Total Bilirubin 0.7, Aspartate Amino Transf (AST/SGOT) 20, Alanine Aminotransferase (ALT/SGPT) 16, Alkaline Phosphatase 102, Total Protein 5.5L, Al bumin 2.4L, Albumin/Globulin Ratio 0.8L, Prothrombin Time 16.0H, Prothromb Time International Ratio 1.25, Activated Partial Thromboplast Time 28.0, Fibrinogen 371, Magnesium Level 1.6L, Ferritin 185, C-Reactive Protein, Quantitative 5.02H CBC/BMP Laboratory Tests 03/24/20 15:02 03/25/20 06:33 Microbiology Microbiology 03/24/20 Respiratory Virus Panel (PCR) ([facility]) - Final, Complete SARS-CoV-2 (COVID 19) SUKUMAR SANDERS MD Mar 25, 2020 12:20
[2020-03-25 12:25] VITALS: BP 129/86
[2020-03-25 19:47] VITALS: BP 132/68
[2020-03-25] MEDS: ACETAMINOPHEN TAB 650MG DOSE (2X325MG) PO PRN (19:56)
[2020-03-25] MEDS: ERTAPENEM SODIUM 1 GM in NS MINI-BAG PLUS 50 ML IV SCH (19:56)
[2020-03-25 21:07] VITALS: BP 94/58
[2020-03-26 05:36] VITALS: BP 85/54
[2020-03-26] MEDS: LEVOTHYROXINE 50MCG TABLET (0.05MG) PO SCH (05:38)
[2020-03-26] MEDS ORDERED: SODIUM CHLORIDE 0.9% 1000ML IV ONE (06:00)
[2020-03-26 07:26] VITALS: BP 108/68
[2020-03-26 07:32] LABS: BASO % 0.5 % (0.0-1.0); EOS # 0.1 10^3/uL (0.0-0.5); EOS % 3.3 % (0.0-3.0); HEMATOCRIT 29.5 % (36.0-47.0); LYMPH # 0.4 10^3/uL (1.5-5.0); LYMPH % 16.7 % (24.0-44.0); MEAN CORPUSCULAR HEMOGLOBIN 36.6 pg (27.0-33.0); MEAN CORPUSCULAR HGB CONC 33.9 g/dl (32.0-36.5); MEAN CORPUSCULAR VOLUME 108.1 fl (80.0-96.0); MONO # 0.2 10^3/uL (0.0-0.8); NEUTROPHILS # 1.5 10^3/uL (1.5-8.5); PLATELET COUNT, AUTOMATED 134 10^3/uL (150-450); RED BLOOD COUNT 2.73 10^6/uL (4.00-5.40); WHITE BLOOD COUNT 2.1 10^3/uL (4.0-10.0)
[2020-03-26] MEDS: atenoloL 25 MG TAB PO SCH (08:31)
[2020-03-26 08:34] LABS: ALBUMIN 1.7 GM/DL (3.2-5.2); ALT/SGPT 9 U/L (12-78); BILIRUBIN,TOTAL 0.7 MG/DL (0.2-1.0); BLOOD UREA NITROGEN 18 MG/DL (7-18); CALCIUM LEVEL 7.6 MG/DL (8.8-10.2); CARBON DIOXIDE LEVEL 22 MEQ/L (21-32); CHLORIDE LEVEL 102 MEQ/L (98-107); GLOMERULAR FILTRATION RATE > 60.0 (>32); GLUCOSE, FASTING 86 MG/DL (70-100); MAGNESIUM LEVEL 1.9 MG/DL (1.8-2.4); SODIUM LEVEL 131 MEQ/L (136-145); TOTAL PROTEIN 4.4 GM/DL (6.4-8.2)
[2020-03-26] MEDS: APIXABAN 2.5 MG TAB (ELIQUIS) PO SCH ×2 (08:35→20:45)
[2020-03-26] MEDS: TOLTERODINE TARTRATE 2 MG LA CAP (DETROL LA) PO SCH (08:35)
[2020-03-26 17:46] VITALS: BP 124/65
[2020-03-26] MEDS: ACETAMINOPHEN TAB 650MG DOSE (2X325MG) PO PRN (18:04)
[2020-03-26] MEDS: ERTAPENEM SODIUM 1 GM in NS MINI-BAG PLUS 50 ML IV SCH (20:45)
[2020-03-26 20:46] VITALS: BP 91/60
[2020-03-26 21:56] VITALS: BP 97/63
--- NOTE | 2020-03-26 22:08 | IPNPDOC ---
Subjective Date Seen The patient was seen on 03/26/20. Subjective Chief Complaint/HPI Spiked a fever last night Tmax was 102. Was tachycardic and mildly hypotensive. She did need oxygen last night. Relieved a fluid bolus of fluid. No fever during the day. Reports increased coughing and increased phlegm production. its yellowish and creamish color. Objective Physical Examination General Exam: Positive: Alert, Cooperative, No Acute Distress Eye Exam: Positive: PERRLA, Conjunctiva & lids normal, EOMI; Negative: Sclera icteric ENT Exam: Positive: Atraumatic, Mucous membr. moist/pink, Pharynx Normal Neck Exam: Positive: Supple; Negative: JVD, thyromegaly Chest Exam: Positive: Diminished, Other (crackles at the left base up to the mid back. Kyphoscoliosis present) Heart Exam: Positive: Irregular Rhythm, Normal S1, Normal S2 Telemetry: Positive: Atrial fibrillation Abdomen Exam: Positive: Normal bowel sounds, Soft; Negative: Tenderness Extremity Exam: Negative: Clubbing, Cyanosis, Edema Assessment /Plan Assessment 84 year old female with Afib on Eliquis, hypertension, hypothyroidism was here on 03/18/20 for generalized weakness and felling unwell and extremely thirsty since 03/14/20. Work up in the ED then showed a UTI and she was discharged from ED with ciprofloxacin. Urine culture on 03/20/20 came back ESBL Ecoli and her antibiotics was changed to Macrobid. I see from ext med history that she actually was ordered Bactrim DS. Today she comes back still feeling unwell now with nausea and diarrhea. She was feeling dizzy and light headed. She reports she has not been able to get out of bed for the past week. She had 3 episodes of diarrhea. her appetite has been poor and she has been able to eat only some yogurt. Today she could not walk to the kitchen due to severe dizziness and light headedness and felt she was going to fall. She lives alone. Her grandson used to live with her for the past 2 years but he got a job in [facility] so moved out 2 weeks ago. Denied coming in contact with any one who was diagnosed with COVID or with any one with cough and cold symptoms. Initially she was tachycardic at 144, Bp was 88/62. She has tested Positive for COVID on 03/24/20. She was given 1 Lof fluid in the ED with improvement of BP to 119/78. Her pulse improved to about 100. She was in Afib. Patient reports that she was taking the new antibiotic that was sent on Friday. She is being admitted for ESBL Ecoli UTI and COVID-19 infection. ESBL Ecoli UTI from urine culture on 03/18/20 Ertapenem COVID- 19 infection with extreme weakness and malaise no hypoxia on admission. Did need oxygen last night. will repeat COVID labs tomorrow and repeat a Chest xray. PT/OT Lives alone. A Fib had RVR on initial presentation to ED settled down to about 100 after getting IVF. continue eliquis. will hold atenolol as was hypotensive on initial presentation If rate becomes uncontrolled will give Digoxin. Hyponatremia possibly due to poor oral intake of food and too much intake of free water Reports she was trying to push fluids to keep herself hydrated. will start on IVF. will check tomorrow am. Hypothyroid synthroid Large Hiatal hernia/GERD PPI. Kyphoscoliosis incentive spirometry. Plan/VTE VTE Prophylaxis Ordered?: Yes VS, I&O, 24H, Fishbone Vital Signs/I&O Vital Signs Date Time Temp Pulse Resp B/P (MAP) Pulse Ox O2 Delivery O2 Flow Rate FiO2 03/26/20 21:56 97/63 (74) 03/26/20 20:46 99.0 100 20 95 Nasal Cannula 1.0 I&O- Last 24 Hours up to 6 AM 03/26/20 07:00 Intake Total 1350 ml Balance 1350 ml Laboratory Data 24H LABS Laboratory Tests 2 03/26/20 07:10: Immature Granulocyte % (Auto) 0.5, Neutrophils (%) (Auto) 69.0H, Lymphocytes (%) (Auto) 16.7L, Monocytes (%) (Auto) 10.0H, Eosinophils (%) (Auto) 3.3H, Basophils (%) (Auto) 0.5, Neutrophils # (Auto) 1.5, Lymphocytes # (Auto) 0.4L, Monocytes # (Auto) 0.2, Eosinophils # (Auto) 0.1, Basophils # (Auto) 0.0, Nucleated Red Blood Cells % (auto) 0.0, Anion Gap 7L, Glomerular Filtration Rate > 60.0, Calcium Level 7.6L, Magnesium Level 1.9, Total Bilirubin 0.7, Aspartate Amino Transf (AST/SGOT) 11, Alanine Aminotransferase (ALT/SGPT) 9L, Alkaline Phosphatase 76, Total Protein 4.4L, Albumin 1.7#L, Albumin/Globulin Ratio 0.6L CBC/BMP Laboratory Tests 03/26/20 07:10 Microbiology Microbiology 03/24/20 Respiratory Virus Panel (PCR) ([facility]) - Final, Complete SARS-CoV-2 (COVID 19) SUKUMAR SANDERS MD Mar 26, 2020 22:08
[2020-03-27 02:54] VITALS: BP 130/76
[2020-03-27] MEDS: LEVOTHYROXINE 50MCG TABLET (0.05MG) PO SCH (06:00)
[2020-03-27 08:00] VITALS: BP 132/70
--- NOTE | 2020-03-27 08:13 | REP ---
INDICATION: New requirement of oxygen COMPARISON: 03/24/2020 TECHNIQUE: Portable AP view of the chest FINDINGS: Examination is significantly limited due to positioning, underpenetration and poor inspiratory effort. The mediastinum again demonstrates cardiomegaly and large hiatal hernia. Perihilar and primarily left lower lobe opacities are suspected along with trace right basilar atelectasis. Cannot exclude small pleural effusion. No pneumothorax. Skeletal structures are stable. IMPRESSION: Significantly limited examination. Perihilar opacities as well as bibasilar atelectasis (left greater than right) and possible small pleural effusions suspected. Clinical correlation is recommended. Consider repeat PA and lateral chest x-ray or CT if necessary. <Electronically signed by Jason Matos > 03/27/20 [id number]
[2020-03-27 10:00] LABS: BASO % 0.6 % (0.0-1.0); EOS # 0.1 10^3/uL (0.0-0.5); HEMATOCRIT 37.8 % (36.0-47.0); LYMPH # 0.5 10^3/uL (1.5-5.0); LYMPH % 14.7 % (24.0-44.0); MEAN CORPUSCULAR HEMOGLOBIN 37.3 pg (27.0-33.0); MEAN CORPUSCULAR HGB CONC 33.1 g/dl (32.0-36.5); MEAN CORPUSCULAR VOLUME 112.8 fl (80.0-96.0); MONO # 0.3 10^3/uL (0.0-0.8); MONO % 7.1 % (0.0-5.0); NEUTROPHILS # 2.7 10^3/uL (1.5-8.5); NEUTROPHILS % 75.3 % (36.0-66.0); PLATELET COUNT, AUTOMATED 218 10^3/uL (150-450); RED BLOOD COUNT 3.35 10^6/uL (4.00-5.40); WHITE BLOOD COUNT 3.5 10^3/uL (4.0-10.0)
[2020-03-27] MEDS: TOLTERODINE TARTRATE 2 MG LA CAP (DETROL LA) PO SCH (10:01)
[2020-03-27] MEDS: APIXABAN 2.5 MG TAB (ELIQUIS) PO SCH (10:01)
[2020-03-27] MEDS: atenoloL 25 MG TAB PO SCH ×2 (10:01→10:02)
[2020-03-27 10:02] VITALS: BP 132/70
[2020-03-27 10:04] LABS: HEMOGLOBIN 12.5 g/dl (12.0-15.5)
[2020-03-27 10:13] LABS: D-DIMER QUANT 1024.62 ng/ml (<500)
[2020-03-27 10:26] LABS: ALBUMIN 2.3 GM/DL (3.2-5.2); BILIRUBIN,TOTAL 0.6 MG/DL (0.2-1.0); C REACTIVE PROTEIN QUANTITATIV 6.21 MG/DL (0.00-0.30); CALCIUM LEVEL 8.5 MG/DL (8.8-10.2); CREATININE FOR GFR 0.98 MG/DL (0.55-1.30); GLOMERULAR FILTRATION RATE 57.7 (>32); MAGNESIUM LEVEL 1.8 MG/DL (1.8-2.4); POTASSIUM SERUM 4.8 MEQ/L (3.5-5.1); TOTAL PROTEIN 5.9 GM/DL (6.4-8.2)
[2020-03-27] MEDS ORDERED: BACT800T5 PO (12:15)
--- NOTE | 2020-03-27 15:34 | DS.PDOC ---
Discharge Summary General Date of Admission Mar 24, 2020 at 18:51 Date of Discharge Mar 27, 2020 Attending Physician: FRANCISCO PEÑA MD Discharge Summary PROCEDURES PERFORMED DURING STAY: [None]. ADMITTING DIAGNOSES: 1. Covid 19 2. ESBL Escherichia coli UTI 3. A. fib on anticoagulation 4. Hypertension 5. Hypothyroidism 6. Overactive bladder 7. Hiatal hernia 8. IBS DISCHARGE DIAGNOSES: 1. UTI 2. A. fib on anticoagulation 3. Hypertension 4. Hypothyroidism 5. Overactive bladder 6. Hiatal hernia 7. IBS COMPLICATIONS/CHIEF COMPLAINT: Covid-19/Uti. HISTORY OF PRESENT ILLNESS: 84 year old female with Afib on Eliquis, hypertension, hypothyroidism was here on 03/18/20 for generalized weakness and felling unwell and extremely thirsty since 03/14/20. Work up in the ED then showed a UTI and she was discharged from ED with ciprofloxacin. Urine culture on 03/20/20 came back ESBL Ecoli and her antibiotics was changed to Macrobid. I see from ext med history that she actually was ordered Bactrim DS. In Mar 24 she came back still feeling unwell having nausea and diarrhea, feeling dizzy and lightheaded. She reports she has not been able to get out of bed for past week. She has 3 episodes of diarrhea. Her appetite has been poor and she has been able to eat only some yogurt. Lives alone and her grandson used to live with her for the past 2 years but he got a job in [place] so moved out 2 weeks ago. Now is coming in contact with anyone who was diagnosed with Covid or anyone with cough or cold symptoms. Initially she was tachycardic at 144, blood pressure was 88 x 62 she was tested positive for Covid on 03/24/2020. Patient seen at bedside today denies having any complaints overnight, she reports having some weakness, PT/OT has recommended acute rehabilitation but kay ngojessy does not want to be in senior living or acute rehabilitation and wants to go home. HOSPITAL COURSE: He was admitted to the hospital, and her UA was positive for ESBL Escherichia coli and was treated with ertapenem total for 4 days, given negative for Covid symptoms initially and normal chest x-ray she wasn't given Covid treatment. He was doing okay for 1 night and next day she had a spike of fever MAXIMUM TEMPERATURE of 102 and tachycardia and mild hypotension she received fluid boluses. And reports increased coughing and increased phlegm production, she did not require oxygen at night. She was only on 1 L of oxygen on and off. DISCHARGE MEDICATIONS: Please see below. ALLERGIES: Please see below. PHYSICAL EXAMINATION ON DISCHARGE: General Exam: Positive: Alert, Cooperative, No Acute Distress Eye Exam: Positive: PERRLA, Conjunctiva & lids normal, EOMI; Negative: Sclera icteric ENT Exam: Positive: Atraumatic, Mucous membr. moist/pink, Pharynx Normal Neck Exam: Positive: Supple; Negative: JVD, thyromegaly Chest Exam: Positive: Diminished, Other (crackles at the left base up to the mid back. Kyphoscoliosis present) Heart Exam: Positive: Irregular Rhythm, Normal S1, Normal S2 Telemetry: Positive: Atrial fibrillation Abdomen Exam: Positive: Normal bowel sounds, Soft; Negative: Tenderness Extremity Exam: Negative: Clubbing, Cyanosis, Edema LABORATORY DATA: Please see below. IMAGING: Chest x-ray on 03/24/20 reported as: There is large hiatal hernia. Stable exam Chest x-ray on 03/27/2020 reported as: IMPRESSION: Significantly limited examination. Perihilar opacities as well as bibasilar atelectasis (left greater than right) and possible small pleural effusions suspected. Clinical correlation is recommended. Consider repeat PA and lateral chest x-ray or CT if necessary. PROGNOSIS: Good ACTIVITY: [As tolerated]. DIET: As tolerated DISCHARGE PLAN: Follow with PCP in 3-5 days DISPOSITION: To home DISCHARGE INSTRUCTIONS: 1. Patient was prescribed Bactrim double strength BID for 3 more days for her UTI. 2. Given her Covid positive continue isolation up to 10 days from the start of symptoms or from tested positive. 3. Patient is requiring oxygen at home continue isolation for total of 20 days 4. Patient is being discharged with home health care, home PT. ITEMS TO FOLLOWUP ON ON OUTPATIENT: 1. Follow with PCP in 3-5 days DISCHARGE CONDITION: [Stable]. TIME SPENT ON DISCHARGE: Greater than 30 minutes. Vital Signs/I&Os Vital Signs Date Time Temp Pulse Resp B/P (MAP) Pulse Ox O2 Delivery O2 Flow Rate FiO2 03/27/20 10:02 96 132/70 03/27/20 08:00 98.3 19 95 Nasal Cannula 1.0 I&O- Last 24 Hours up to 6 AM 03/27/20 06:00 Intake Total 600 ml Balance 600 ml Laboratory Data Labs 24H Laboratory Tests 2 03/27/20 09:38: Immature Granulocyte % (Auto) 0.3, Neutrophils (%) (Auto) 75.3H, Lymphocytes (%) (Auto) 14.7L, Monocytes (%) (Auto) 7.1H, Eosinophils (%) (Auto) 2.0, Basophils (%) (Auto) 0.6, Neutrophils # (Auto) 2.7, Lymphocytes # (Auto) 0.5L, Monocytes # (Auto) 0.3, Eosinophils # (Auto) 0.1, Basophils # (Auto) 0.0, Nucleated Red Blood Cells % (auto) 0.0, Fibrinogen 411, D-Dimer, Quantitative 1024.62H, Anion Gap 7L, Glomerular Filtration Rate 57.7, Calcium Level 8.5L, Magnesium Level 1.8, Total Bilirubin 0.6, Aspartate Amino Transf (AST/SGOT) 24, Alanine Aminotransferase (ALT/SGPT) 15, Alkaline Phosphatase 92, C-Reactive Protein, Quantitative 6.21H, Total Protein 5.9#L, Albumin 2.3#L, Albumin/Globulin Ratio 0.6L CBC/BMP Laboratory Tests 03/27/20 09:38 Microbiology Microbiology 03/24/20 Respiratory Virus Panel (PCR) ([facility]) - Final, Complete SARS-CoV-2 (COVID 19) Discharge Medications Scheduled Apixaban (Eliquis) 2.5 Mg Tab, 2.5 MG PO BID, (Reported) Atenolol (Atenolol) 25 Mg Tablet, 50 MG PO DAILY, (Reported) Ergocalciferol (Vitamin D2) (Vitamin D2) 50,000 Units Cap, 50,000 UNITS PO 1XWK, (Reported) TUESDAYS Levothyroxine Sodium (Synthroid) 50 Mcg Tablet, 50 MCG PO DAILY, (Reported) Omeprazole (Omeprazole) 40 Mg Capsule.dr, 40 MG PO DAILY, (Reported) Sulfamethoxazole/Trimethoprim (Sulfamethoxazole-Tmp Ds Tablet) 1 Each Tablet, 1 TAB PO BID, (Reported) Sulfamethoxazole/Trimethoprim (Bactrim Ds Tablet) 1 Each Tablet, 1 TAB PO BID Tolterodine Tartrate (Tolterodine Tartrate ER) 4 Mg Cap.er.24h, 4 MG PO DAILY, (Reported) Scheduled PRN Alprazolam (Xanax) 0.25 Mg Tab, 0.25 MG PO Q6H PRN for ANXIETY, (Reported) Meclizine HCl (Meclizine HCl) 12.5 Mg Tablet, 12.5 MG PO TID PRN for DIZZINESS, (Reported) Allergies Coded Allergies: atorvastatin (Verified Allergy, Unknown, 03/24/20) caffeine (Verified Adverse Reaction, Mild, anxiety , 03/24/20) codeine (Verified Adverse Reaction, Mild, Blood Pressure decreases a lot, 03/24/20) propoxyphene (Verified Adverse Reaction, Mild, feel unwell, 03/24/20) rivaroxaban (Verified Adverse Reaction, Mild, Bleeding Gums, 03/24/20) tramadol (Verified Adverse Reaction, Mild, feels unwell, 03/24/20) GME ATTESTATION GME ATTESTATION My faculty preceptor for this patient encounter was physically present during t he encounter and was fully available. All aspects of the patient interview, examination, medical decision making process, and medical care plan development were reviewed and approved by the faculty preceptor. The faculty preceptor is aware and concurs with the plan as stated in the body of this note and will attest to such by his/her cosignature. ATTENDING NOTE I, Francisco Pñea MD, have independently examined this patient and performed my own physical exam, as well as reviewed the documentation and edited where necessary. I have discussed in detail with the resident / student the findings and plan of treatment as documented by the resident / student and edited their note. I agree with their findings and treatment plan and have edited their documentation. Flaca Ramos MD Mar 27, 2020 15:34 FRANCISCO PEÑA MD Mar 31, 2020 14:00
== END 2020-03-27 15:00 | disposition home health service (06) | DRG 178 ==
LOC: M ED 13:46 → M ED INP 18:51 → M 4MAIN 03-25 02:20
PROVIDERS: ADMIT Internal Medicine Nephrology; ATTEND Internal Medicine
DX: U07.1 COVID-19 (principal); N39.0 Urinary tract infection, site not specified; E87.1 Hypo-osmolality and hyponatremia; R53.1 Weakness; R53.81 Other malaise; I48.91 Unspecified atrial fibrillation; E03.9 Hypothyroidism, unspecified; B96.20 Unspecified Escherichia coli [E. coli] as the cause of diseases classified elsewhere; G47.33 Obstructive sleep apnea (adult) (pediatric); F41.9 Anxiety disorder, unspecified; K44.9 Diaphragmatic hernia without obstruction or gangrene; K58.0 Irritable bowel syndrome with diarrhea; K21.9 Gastro-esophageal reflux disease without esophagitis; N32.81 Overactive bladder; Z79.01 Long term (current) use of anticoagulants; Z96.651 Presence of right artificial knee joint; Z79.899 Other long term (current) drug therapy; Z88.5 Allergy status to narcotic agent; Z88.8 Allergy status to other drugs, medicaments and biological substances; Z91.048 Other nonmedicinal substance allergy status

== ENCOUNTER → 2020-06-19 | Outpatient (CLI) | payer MEDICARE, OTHER ==
[~2020-06-19] MED LIST changes: +BACT800T5 PO; +MECL-136 PO; +OMEP-221 PO; +SULF1TAB93 PO; +SYNT50TA PO; +TOLT4CAP3 PO; +VITA50005 PO
--- NOTE | 2020-06-19 12:38 | REP ---
INDICATION: PAIN. COMPARISON: Plain film study of the hips is reviewed from 09/20/2017 TECHNIQUE: Plain film study of the lumbar spine includes PA lateral and obliques. FINDINGS: There is an S-shaped thoracolumbar scoliosis, left convex apex approximately L4 and right convex apex approximately L1. There is diffuse osteopenia limiting the evaluation. Disc heights are diminished and there appears to be ankylosis of the vertebrae, L1 through L3. There is vacuum disc at the L4-5 level. No definite fracture or acute malalignment. The L5-S1 interface is particularly difficult to evaluate due to overlying structures and scoliosis. We also have no prior similar studies of this area. Descending arterial vasculature demonstrates atherosclerotic calcification. IMPRESSION: Chronic findings of scoliosis, osteopenia, and degenerative changes limits evaluation for acute findings. Given these limitations, no definite fracture or acute malalignments. If symptoms persist, cross-sectional study, CT or MRI recommended. <Electronically signed by Bryant Du > 06/19/20 [id number]
== END ==
LOC: M SOG 10:05
PROVIDERS: ATTEND Orthopaedic Surgery Sports Medicine
DX: M54.5 Low back pain (principal); M41.84 Other forms of scoliosis, thoracic region; M85.88 Other specified disorders of bone density and structure, other site; M51.37 Other intervertebral disc degeneration, lumbosacral region

== ENCOUNTER → 2020-08-08 | Outpatient (CLI) | payer MEDICARE, OTHER ==
[~2020-08-08] MED LIST changes: +BACTDSTA PO; -SULF1TAB93 PO
--- NOTE | 2020-08-10 02:15 | ECWPNPC ---
PATIENT NAME: JIM SAVAGE : 1935 GENDER: FEMALE VISIT DATE: 08/08/2020 DISCHARGE DATE: 08/08/20 1424 VISIT LOCKED DATE TIME: PHYSICIAN: GEORGE SUMMERS RESOURCE: GEORGE SUMMERS REASON FOR APPOINTMENT 1. BACK HISTORY OF PRESENT ILLNESS PAIN CENTER INTAKE QUESTIONS: DO YOU HAVE A HISTORY OF MRSA? :NO DO YOU TAKE A BLOOD THINNERS? :YES ELIQUIS DO YOU HAVE ANY BLEEDING DISORDERS? :NO BLEED VERY EASY ANY NEW NUMBNESS OR WEAKNESS IN YOUR LEGS OR ARMS? :NO ANY PACEMAKER,DEFIBRILLATOR, OR DORSAL COLUMN STIMULATOR? :NO DO YOU HAVE ANY RASHES OR OPEN SORES? :NO ARE YOU ALLERGIC TO IV DYE? :NO ARE YOU DIABETIC? :NO ANY NEW PROBLEMS WITH YOUR MEDICATIONS? :NO PATIENT STATES "THE HYDROCODONE IS NOT HELPING." HAVE YOU RECEIVED A VACCINE IN THE PAST 30 DAYS? :NO 2ND COVID 06/02/2020 DO YOU PLAN TO RECEIVE A VACCINE IN THE NEXT 21 DAYS? :NO DO YOU NEED ANY PRESCRIPTION? :NO DO YOU TAKE ANY IMMUNOSUPPRESSIVE MEDICATIONS? :NO GENERAL: HPI 84-YEAR-OLD FEMALE IN FOR CHRONIC PAIN FOLLOW-UP. AT LAST CLINIC VISIT PATIENT WAS STARTED ON HYDROCODONE AND SHE ADMITS TODAY THAT THIS WAS NOT BENEFICIAL. SHE RATES HER PAIN CURRENTLY AT A 7 OUT OF 10 AND DESCRIBES IT ACHING, AND THROBBING. . -. FALL RISK SCREENING: SCREENING : NO FALLS REPORTED IN THE LAST YEAR. PAIN SCREENING: PATIENT HAS A COMPLAINT OF ACUTE OR CHRONIC PAIN :YES LOCATION OF PAIN:LOW BACK INTENSITY OF PAIN (SCALE OF 1 TO 10):7 ANY ACTIVITY WILL BRING THE PAIN UP TO A 10. WHAT DOES YOUR PAIN FEEL LIKE:ACHING, THROBBING, OTHER DULL DURATION:CONTINOUS, CONSTANT, AWAKENS FROM SLEEP PAIN IS INCREASED BY:ACTIVITIES, PROLONGED STANDING PAIN IS DECREASED BY:SITTING RECLINER WITH HEAT NURSING NOTE: -. CURRENT MEDICATIONS TAKING OMEPRAZOLE 40 MG CAPSULE DELAYED RELEASE 1 CAPSULE 30 MINUTES BEFORE MORNING MEAL ORALLY ONCE A DAY TAKING LEVOTHYROXINE SODIUM 50 MCG TABLET 1 TABLET IN THE MORNING ON AN EMPTY STOMACH ORALLY ONCE A DAY TAKING ATENOLOL-CHLORTHALIDONE 50-25 MG TABLET 1 TABLET ORALLY ONCE A DAY TAKING ELIQUIS 2.5 MG TABLET DIRECTED ORALLY TAKING TOLTERODINE TARTRATE ER 4 MG CAPSULE EXTENDED RELEASE 24 HOUR 1 CAPSULE ORALLY ONCE A DAY TAKING VITAMIN D2 50 MCG (2000 UT) TABLET 1 TABLET ORALLY ONCE A DAY TAKING ALPRAZOLAM 0.25 MG TABLET 1 TABLET ORALLY NEEDED TWICE A DAY TAKING FUROSEMIDE 20 MG TABLET 1 TABLET ORALLY ONCE A DAY TAKING HYDROCODONE-ACETAMINOPHEN 5-325 MG TABLET 1 TABLET NEEDED ORALLY DAILY NEEDED FOR PAIN NOT-TAKING MILK OF MAGNESIA 7.75 % SUSPENSION 5 ML AT LEAST 4 HOURS BETWEEN DOSES NEEDED ORALLY FOUR TIMES A DAY NOT-TAKING LEVOTHYROXINE SODIUM 50 MCG TABLET 1 TABLET IN THE MORNING ON AN EMPTY STOMACH ORALLY ONCE A DAY NOT-TAKING HYDROXYZINE HCL 10 MG/5ML SYRUP 25 ML NEEDED ORALLY EVERY 6 HRS MEDICATION LIST REVIEWED AND RECONCILED WITH THE PATIENT PAST MEDICAL HISTORY ATRIAL FIBRILLATION-SLEZKA BACK PROBLEMS ANXIETY HYPERTENSION DEGENERATIVE SCOLIOSIS BACK PAIN ALLERGIES TYLENOL WITH CODEINE: BLOOD PRESSURE GETS LOWER - SIDE EFFECTS ULTRAM: INCREASED BLOOD PRESSURE - SIDE EFFECTS DARVOCET: FEELING UNWELL CAFFEINE: FEELING SHE IS GOING TO - SIDE EFFECTS SURGICAL HISTORY GALLBLADDER 2006 RIGHT SHOUDLER REPLEAMENT RIGHT KNEE REPLACEMENT LUMPECTOMY 2019 SOCIAL HISTORY GENERAL: TOBACCO USE ARE YOU A:NONSMOKER LATEX QUESTIONNAIRE LATEX ALLERGY : HAVE YOU EVER DEVELOPED ANY TYPE OF REACTION AFTER HANDLING LATEX PRODUCTS SUCH RUBBER GLOVES, CONDOMS, DIAPHRAGMS, BALLOONS, SOCKS, OR UNDERWEAR?NO LATEX ALLERGY : HAVE YOU EVER DEVELOPED ANY TYPE OF REACTION DURING OR AFTER DENTAL APPOINTMENT, VAGINAL/RECTAL EXAMINATION, SURGICAL PROCEDURE, OR ANY OTHER EXPOSURE?NO LATEX RISK : HAVE YOU EVER HAD ANY DIFFICULTY BREATHING OR HIVES AFTER EATING OR HANDLING ANY FRUITS, OR VEGETABLES; SUCH KIWI, BANANAS, STONE FRUITS, OR CHESTNUTSNO LATEX RISK : DO YOU HAVE A PREVIOUS PERSONAL HISTORY OF MORE THAN NINE SURGERIES, SPINA BIFIDA, OR REPEATED CATHERIZATIONS? NO LATEX RISK : ARE YOU FREQUENTLY EXPOSED TO LATEX PRODUCTS IN YOUR OCCUPATION?NO DATE ASKED : 08/08/2020 ALCOHOL USE: WINE WITH DINNER DAILY. 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 HOSPITALIZATION/MAJOR DIAGNOSTIC PROCEDURE TESTED POSITIVE FOR COVID STAYED 3-4 DAYS 03/2020 REVIEW OF SYSTEMS CONSTITUTIONAL: ANY RECENT FEVER NO . CHILLS NO . WEIGHT CHANGE OF UNKNOWN REASONS NO . GASTROENTEROLOGY: NEW UNEXPLAINABLE CHANGES IN BOWEL CONTROL NO . CONSTIPATION NO . GENITOURINARY: ANY NEW CHANGE IN BLADDER CONTROL? NO . NEUROLOGY: NEW ONSET DIZZINESS OR NEUROLOGICAL CHANGES NOT MENTIONED NO . NEW NUMBNESS OR PAIN PATTERNS NOT MENTIONED AND PERTINENT TO TODAY'S VISIT NO . CARDIOLOGY: NEW CHEST PRESSURE NO . PATIENT DENIES NO . RESPIRATORY: UNEXPLAINABLE COUGH NO . NEW SHORTNESS OF BREATH NO . VITAL SIGNS WT 125.8 LBS, HT 4'7, BMI 38.38 INDEX, BP 127/56 MM HG, HR 98 /MIN, RR 18 /MIN, TEMP 98.7 F, OXYGEN SAT % 98%, SAFE IN ENV? (Y/N) YES, REVIEWED BY: GORDON AGUIRRE MA. EXAMINATION GENERAL EXAMINATION: GENERALNO ACUTE DISTRESS, WELL NOURISHED AND HYDRATED. PSYCHAPPROPRIATE MOOD AND AFFECT . LUNGS:CLEAR TO AUSCULTATION BILATERALLY, NO WHEEZES, RHONCHI, RALES. HEART:HEART RATE IRREGULAR NO MURMURS NOTED (PATIENT HAS HISTORY OF A. FIB). ASSESSMENTS LOW BACK PAIN - M54.5 (PRIMARY) TREATMENT LOW BACK PAIN STOP HYDROCODONE-ACETAMINOPHEN TABLET, 5-325 MG, 1 TABLET NEEDED, ORALLY, DAILY NEEDED FOR PAIN START OXYCODONE-ACETAMINOPHEN TABLET, 5-325 MG, 1 TABLET NEEDED, ORALLY, EVERY 12 HRS PRN PAIN, 30 DAY(S), 60 NOTES: 84-YEAR-OLD FEMALE IN FOR CHRONIC PAIN FOLLOW-UP. GIVEN PRESENTING SYMPTOMS RECOMMENDED STOPPING NORCO AND STARTING PERCOCET 5/325 MG TWICE A DAY NEEDED FOR PAIN WITH FOLLOW-UP IN ONE MONTH TO DETERMINE EFFICACY OF TREATMENT. PATIENT HAS EXPRESSED UNDERSTANDING OF AND WAS IN AGREEMENT WITH TREATMENT PLAN. GIVEN TIME TO ASK QUESTIONS AND EXPRESS CONCERNS. ISTOP REGISTRY REVIEWED AND DEMONSTRATES COMPLLIANCE. (REF # [id number] ) BRINGS IN MEDICATIONS WHICH IS APPROPRIATE FOR WHAT WAS DISPENSED. RECENT URINE TOXICOLOGY REVIEWED. NO UNAUTHORIZED MEDICATIONS. NO ILLICIT SUBSTANCES AND PRESCRIBED MEDICATIONS WERE PRESENT. OTHERS NOTES: OXYCODONE MATERIAL WAS PRINTED AND PROVIDED TO PATIENT. PATIENT VERBALZED AN UNDERSTANDING. JANIE AGUIRRE MA. PROCEDURE CODES FA211 ESTABILISHED PATIENT [facility] CHARGE DISPOSITION & COMMUNICATION FOLLOW UP 4 WEEKS (REASON: LOW BACK PAIN ) ELECTRONICALLY SIGNED BY NEAL WATTS ON 08/09/2020 AT 01:32 PM EDT DISCLAIMER : THIS IS A VISIT SUMMARY EXTRACTED FROM THE [employer] CHART. IT IS NOT A COPY OF THE [employer] PROGRESS NOTE. KAVIN
== END ==
LOC: M PAIN 13:30
PROVIDERS: ATTEND Family Medicine
DX: M54.5 Low back pain (principal); I48.91 Unspecified atrial fibrillation; F41.9 Anxiety disorder, unspecified; I10 Essential (primary) hypertension; M41.80 Other forms of scoliosis, site unspecified; Z79.891 Long term (current) use of opiate analgesic; Z79.01 Long term (current) use of anticoagulants; Z79.899 Other long term (current) drug therapy; Z88.6 Allergy status to analgesic agent; Z88.8 Allergy status to other drugs, medicaments and biological substances; Z91.018 Allergy to other foods

== ENCOUNTER → 2020-09-04 | Outpatient (CLI) | payer MEDICARE, OTHER ==
[~2020-09-04] MED LIST changes: +ERGO500029 PO; -VITA50005 PO
--- NOTE | 2020-09-08 03:14 | ECWPNPC ---
PATIENT NAME: JIM SAVAGE : 1935 GENDER: FEMALE VISIT DATE: 09/04/2020 DISCHARGE DATE: 09/04/20 1426 VISIT LOCKED DATE TIME: PHYSICIAN: GEORGE SUMMERS RESOURCE: GEORGE SUMMERS REASON FOR APPOINTMENT 1. LOW BACK PAIN HISTORY OF PRESENT ILLNESS GENERAL: HPI 84-YEAR-OLD FEMALE IN FOR CHRONIC PAIN FOLLOW-UP. AT LAST CLINIC VISIT PATIENT WAS STARTED ON OXYCODONE AND SHE ADMITS TODAY THAT THIS WAS BENEFICIAL. SHE RATES HER PAIN CURRENTLY A 6 OUT OF 10 AND DESCRIBES IT ACHING AND CONTINUOUS.. -. FALL RISK SCREENING: SCREENING : NO FALLS REPORTED IN THE LAST YEAR. PAIN SCREENING: PATIENT HAS A COMPLAINT OF ACUTE OR CHRONIC PAIN :YES LOCATION OF PAIN:LOW BACK INTENSITY OF PAIN (SCALE OF 1 TO 10):6 WHAT DOES YOUR PAIN FEEL LIKE:ACHING, CONTINOUS DURATION:CONTINOUS PAIN IS INCREASED BY:ACTIVITIES, PROLONGED STANDING PAIN IS DECREASED BY:USE OF PAIN MEDICATIONS, SITTING NURSING NOTE: -. PAIN CENTER INTAKE QUESTIONS: DO YOU HAVE A HISTORY OF MRSA? :NO DO YOU TAKE A BLOOD THINNERS? :YES ELIQUIS DO YOU HAVE ANY BLEEDING DISORDERS? :NO BLEED VERY EASY ANY NEW NUMBNESS OR WEAKNESS IN YOUR LEGS OR ARMS? :YES LEFT HAND NUMBNESS ANY PACEMAKER,DEFIBRILLATOR, OR DORSAL COLUMN STIMULATOR? :NO DO YOU HAVE ANY RASHES OR OPEN SORES? :NO ARE YOU ALLERGIC TO IV DYE? :NO ARE YOU DIABETIC? :NO ANY NEW PROBLEMS WITH YOUR MEDICATIONS? :NO HAVE YOU RECEIVED A VACCINE IN THE PAST 30 DAYS? :NO 2ND COVID 06/02/2020 DO YOU PLAN TO RECEIVE A VACCINE IN THE NEXT 21 DAYS? :NO DO YOU NEED ANY PRESCRIPTION? :NO DO YOU TAKE ANY IMMUNOSUPPRESSIVE MEDICATIONS? :NO CURRENT MEDICATIONS TAKING OMEPRAZOLE 40 MG CAPSULE DELAYED RELEASE 1 CAPSULE 30 MINUTES BEFORE MORNING MEAL ORALLY ONCE A DAY TAKING LEVOTHYROXINE SODIUM 50 MCG TABLET 1 TABLET IN THE MORNING ON AN EMPTY STOMACH ORALLY ONCE A DAY TAKING ATENOLOL-CHLORTHALIDONE 50-25 MG TABLET 1 TABLET ORALLY ONCE A DAY TAKING ELIQUIS 2.5 MG TABLET DIRECTED ORALLY TAKING TOLTERODINE TARTRATE ER 4 MG CAPSULE EXTENDED RELEASE 24 HOUR 1 CAPSULE ORALLY ONCE A DAY TAKING VITAMIN D2 50 MCG (2000 UT) TABLET 1 TABLET ORALLY ONCE A DAY TAKING ALPRAZOLAM 0.25 MG TABLET 1 TABLET ORALLY NEEDED TWICE A DAY TAKING FUROSEMIDE 20 MG TABLET 1 TABLET ORALLY ONCE A DAY TAKING OXYCODONE-ACETAMINOPHEN 5-325 MG TABLET 1 TABLET NEEDED ORALLY EVERY 12 HRS PRN PAIN TAKING ZYRTEC ALLERGY 10 MG TABLET 1 TABLET ORALLY ONCE A DAY NOT-TAKING MILK OF MAGNESIA 7.75 % SUSPENSION 5 ML AT LEAST 4 HOURS BETWEEN DOSES NEEDED ORALLY FOUR TIMES A DAY NOT-TAKING LEVOTHYROXINE SODIUM 50 MCG TABLET 1 TABLET IN THE MORNING ON AN EMPTY STOMACH ORALLY ONCE A DAY NOT-TAKING HYDROXYZINE HCL 10 MG/5ML SYRUP 25 ML NEEDED ORALLY EVERY 6 HRS MEDICATION LIST REVIEWED AND RECONCILED WITH THE PATIENT PAST MEDICAL HISTORY ATRIAL FIBRILLATION-SLEZKA BACK PROBLEMS ANXIETY HYPERTENSION DEGENERATIVE SCOLIOSIS BACK PAIN ALLERGIES TYLENOL WITH CODEINE: BLOOD PRESSURE GETS LOWER - SIDE EFFECTS ULTRAM: INCREASED BLOOD PRESSURE - SIDE EFFECTS DARVOCET: FEELING UNWELL CAFFEINE: FEELING SHE IS GOING TO - SIDE EFFECTS SOCIAL HISTORY GENERAL: TOBACCO USE ARE YOU A:NONSMOKER LATEX QUESTIONNAIRE LATEX ALLERGY : HAVE YOU EVER DEVELOPED ANY TYPE OF REACTION AFTER HANDLING LATEX PRODUCTS SUCH RUBBER GLOVES, CONDOMS, DIAPHRAGMS, BALLOONS, SOCKS, OR UNDERWEAR?NO LATEX ALLERGY : HAVE YOU EVER DEVELOPED ANY TYPE OF REACTION DURING OR AFTER DENTAL APPOINTMENT, VAGINAL/RECTAL EXAMINATION, SURGICAL PROCEDURE, OR ANY OTHER EXPOSURE?NO LATEX RISK : HAVE YOU EVER HAD ANY DIFFICULTY BREATHING OR HIVES AFTER EATING OR HANDLING ANY FRUITS, OR VEGETABLES; SUCH KIWI, BANANAS, STONE FRUITS, OR CHESTNUTSNO LATEX RISK : DO YOU HAVE A PREVIOUS PERSONAL HISTORY OF MORE THAN NINE SURGERIES, SPINA BIFIDA, OR REPEATED CATHERIZATIONS? NO LATEX RISK : ARE YOU FREQUENTLY EXPOSED TO LATEX PRODUCTS IN YOUR OCCUPATION?NO DATE ASKED : 09/04/2020 ALCOHOL USE: WINE WITH DINNER DAILY. 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 REVIEW OF SYSTEMS CONSTITUTIONAL: ANY RECENT FEVER NO . CHILLS NO . WEIGHT CHANGE OF UNKNOWN REASONS NO . GASTROENTEROLOGY: NEW UNEXPLAINABLE CHANGES IN BOWEL CONTROL NO . CONSTIPATION NO . GENITOURINARY: ANY NEW CHANGE IN BLADDER CONTROL? NO . NEUROLOGY: NEW ONSET DIZZINESS OR NEUROLOGICAL CHANGES NOT MENTIONED NO . NEW NUMBNESS OR PAIN PATTERNS NOT MENTIONED AND PERTINENT TO TODAY'S VISIT NO . CARDIOLOGY: NEW CHEST PRESSURE NO . PATIENT DENIES NO . RESPIRATORY: UNEXPLAINABLE COUGH NO . NEW SHORTNESS OF BREATH NO . VITAL SIGNS WT 130.4 LBS, HT 4'7, BMI 39.79 INDEX, BP 111/67 MM HG, HR 88 /MIN, RR 16 /MIN, TEMP 98.8 F, OXYGEN SAT % 98%, SAFE IN ENV? (Y/N) YES, NA INITIALS TX 14:13, REVIEWED BY: GORDON AGUIRRE MA. EXAMINATION GENERAL EXAMINATION: GENERALNO ACUTE DISTRESS, WELL NOURISHED AND HYDRATED. PSYCHAPPROPRIATE MOOD AND AFFECT . LUNGS:CLEAR TO AUSCULTATION BILATERALLY, NO WHEEZES, RHONCHI, RALES. HEART:NO MURMURS, REGULAR RATE AND RHYTHM. ASSESSMENTS LOW BACK PAIN - M54.5 (PRIMARY) TREATMENT LOW BACK PAIN NOTES: 84-YEAR-OLD FEMALE IN FOR CHRONIC PAIN FOLLOW-UP. GIVEN PRESENTING SYMPTOMS RECOMMEND CONTINUATION OF CURRENT MEDICATION REGIMEN WITH FOLLOW-UP IN 3 MONTHS. PATIENT HAS EXPRESSED UNDERSTANDING OF AND WAS IN AGREEMENT WITH TREATMENT PLAN. GIVEN TIME TO ASK QUESTIONS AND EXPRESS CONCERNS. ISTOP REGISTRY REVIEWED AND DEMONSTRATES COMPLLIANCE. (REF #[id number]) BRINGS IN MEDICATIONS WHICH IS APPROPRIATE FOR WHAT WAS DISPENSED. RECENT URINE TOXICOLOGY REVIEWED. NO UNAUTHORIZED MEDICATIONS. NO ILLICIT SUBSTANCES AND PRESCRIBED MEDICATIONS WERE PRESENT. OTHERS NOTES: OXYCODONE MATERIAL WAS PRINTED AND PROVIDED TO PATIENT. PATIENT VERBALZED AN UNDERSTANDING. JANIE AGUIRRE MA. PROCEDURE CODES [id number] ESTABILISHED PATIENT [facility] CHARGE DISPOSITION & COMMUNICATION FOLLOW UP 3 MONTHS (REASON: BACK PAIN) ELECTRONICALLY SIGNED BY NEAL WATTS ON 09/07/2020 AT 08:12 AM EDT DISCLAIMER : THIS IS A VISIT SUMMARY EXTRACTED FROM THE [facility] CHART. IT IS NOT A COPY OF THE [facility] PROGRESS NOTE. KAVIN
== END ==
LOC: M PAIN 14:00
PROVIDERS: ATTEND Family Medicine
DX: M54.5 Low back pain (principal); I48.91 Unspecified atrial fibrillation; F41.9 Anxiety disorder, unspecified; I10 Essential (primary) hypertension; M41.80 Other forms of scoliosis, site unspecified; Z79.891 Long term (current) use of opiate analgesic; Z79.899 Other long term (current) drug therapy; Z88.6 Allergy status to analgesic agent; Z88.5 Allergy status to narcotic agent; Z88.8 Allergy status to other drugs, medicaments and biological substances; Z91.018 Allergy to other foods

== ENCOUNTER → 2020-11-03 | Outpatient (REF) | payer MEDICARE, OTHER | LOC: M WUC 19:48 | PROVIDERS: ATTEND Physician Assistant | DX: R30.0 Dysuria (principal) ==

== ENCOUNTER → 2020-11-10 | Outpatient (CLI) | payer MEDICARE, OTHER ==
[2020-11-10 16:41] LABS: BASO # 0.1 10^3/uL (0.0-0.2); BASO % 0.8 % (0.0-1.0); EOS # 0.3 10^3/uL (0.0-0.5); HEMATOCRIT 33.6 % (36.0-47.0); HEMOGLOBIN 11.2 g/dl (12.0-15.5); LYMPH # 0.7 10^3/uL (1.5-5.0); LYMPH % 11.7 % (24.0-44.0); MEAN CORPUSCULAR HEMOGLOBIN 35.7 pg (27.0-33.0); MEAN CORPUSCULAR HGB CONC 33.3 g/dl (32.0-36.5); MONO # 0.6 10^3/uL (0.0-0.8); NEUTROPHILS # 4.5 10^3/uL (1.5-8.5); NEUTROPHILS % 71.9 % (36.0-66.0); PLATELET COUNT, AUTOMATED 234 10^3/uL (150-450); RED BLOOD COUNT 3.14 10^6/uL (4.00-5.40); WHITE BLOOD COUNT 6.3 10^3/uL (4.0-10.0)
[2020-11-10 17:17] LABS: ALBUMIN 2.2 GM/DL (3.2-5.2); BILIRUBIN,TOTAL 0.7 MG/DL (0.2-1.0); C REACTIVE PROTEIN QUANTITATIV 2.38 MG/DL (0.00-0.30); CALCIUM LEVEL 8.5 MG/DL (8.8-10.2); CREATININE FOR GFR 1.26 MG/DL (0.55-1.30); GLOMERULAR FILTRATION RATE 43.1 (>32); POTASSIUM SERUM 3.2 MEQ/L (3.5-5.1); THYROID STIMULATING HORMONE 4.79 uIU/ML (0.358-3.740); TOTAL PROTEIN 5.8 GM/DL (6.4-8.2)
[2020-11-10 18:41] LABS: HEMOGLOBIN A1c 4.9 %
== END ==
LOC: M WUC 13:49
PROVIDERS: ATTEND Family Medicine
DX: R63.4 Abnormal weight loss (principal); I48.21 Permanent atrial fibrillation; Z79.899 Other long term (current) drug therapy

== ENCOUNTER 2020-11-30 21:31 | Emergency (ER) | payer MEDICARE, OTHER ==
[~2020-11-30] VITALS: Ht 147.3 cm; Wt 56.8 kg
--- NOTE | 2020-11-30 23:09 | REPVR ---
PROCEDURE INFORMATION: Exam: CT Head Without Contrast Exam date and time: 11/30/2020 9:49 PM Age: 85 years old Clinical indication: Injury or trauma; Fall; Blunt trauma (contusions or hematomas); Additional info: Fall/hypotension/blood thinners TECHNIQUE: Imaging protocol: Computed tomography of the head without contrast. Radiation optimization: All CT scans at this facility use at least one of these dose optimization techniques: automated exposure control; mA and/or kV adjustment per patient size (includes targeted exams where dose is matched to clinical indication); or iterative reconstruction. COMPARISON: CT Head without contrast 09/20/2017 6:12 PM FINDINGS: Brain: There is age-related volume loss. There is mild white matter lucency consistent with chronic microvascular disease. 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 No acute infarct. No hemorrhage or extra-axial collection. No mass. Cerebral ventricles: There is no hydrocephalus. No intraventricular hemorrhage. Paranasal sinuses: Visualized sinuses are unremarkable. No fluid levels. Mastoid air cells: Visualized mastoid air cells are well aerated. Bones/joints: Unremarkable. No acute fracture. Soft tissues: There is right lateral scalp soft tissue swelling. IMPRESSION: 1. Age-related volume loss and mild chronic microvascular disease. 2. No acute intracranial injury or lesion and no change from prior scan. Electronically signed by: Bao Jeffrey On 11/30/2020 23:08:18 PM
--- NOTE | 2020-11-30 23:13 | REPVR ---
PROCEDURE INFORMATION: Exam: CT Cervical Spine Without Contrast Exam date and time: 11/30/2020 9:49 PM Age: 85 years old Clinical indication: Injury or trauma; Fall; Blunt trauma; Additional info: Fall/hypotension/blood thinners TECHNIQUE: Imaging protocol: Computed tomography images of the cervical spine without contrast. Radiation optimization: All CT scans at this facility use at least one of these dose optimization techniques: automated exposure control; mA and/or kV adjustment per patient size (includes targeted exams where dose is matched to clinical indication); or iterative reconstruction. COMPARISON: CT Spine,cervical w/o contrast 09/20/2017 6:12 PM FINDINGS: Bones/joints: There is no fracture. Vertebral bodies maintain their height. There is no fracture of the posterior elements. There is no focal osseous lesion. Discs/Spinal canal/Neural foramina: There is spondylosis and disc space narrowing at C6-C7 with a posterior osteophyte and disc bulge. No central spinal stenosis. There is foraminal stenosis at several levels. Lungs: Lung apices are normal. Soft tissues: Unremarkable. IMPRESSION: No fracture of the cervical spine Electronically signed by: Bao Jeffrey On 11/30/2020 23:13:20 PM
[2020-11-30 23:45] VITALS: BP 92/52
== END 2020-11-30 23:49 | disposition home or self-care (01) ==
LOC: M ED 21:31
DX: S00.03XA Contusion of scalp, initial encounter (principal); S50.901A Unspecified superficial injury of right elbow, initial encounter; W08.XXXA Fall from other furniture, initial encounter; Y92.89 Other specified places as the place of occurrence of the external cause; Y93.89 Activity, other specified; Y99.9 Unspecified external cause status; F10.10 Alcohol abuse, uncomplicated; Z79.01 Long term (current) use of anticoagulants; Z79.899 Other long term (current) drug therapy; Z88.8 Allergy status to other drugs, medicaments and biological substances; Z88.5 Allergy status to narcotic agent

== ENCOUNTER → 2020-12-05 | Outpatient (CLI) | payer MEDICARE, OTHER ==
--- NOTE | 2020-12-05 13:22 | REP ---
INDICATION: PAIN AFTER FALL. COMPARISON: None TECHNIQUE: AP and frog-lateral views FINDINGS: There is moderate asymmetric hip joint space narrowing without prominent marginal osteophytosis, buttressing, fracture, or subluxation. The bones do appear to be demineralized. IMPRESSION: Chronic changes as described above. <Electronically signed by Edward Chen > 12/05/20 [id number]
[2020-12-05 15:57] LABS: BASO # 0.1 10^3/uL (0.0-0.2); BASO % 0.9 % (0.0-1.0); EOS # 0.1 10^3/uL (0.0-0.5); EOS % 2.1 % (0.0-3.0); HEMOGLOBIN 11.7 g/dl (12.0-15.5); LYMPH # 0.9 10^3/uL (1.5-5.0); MEAN CORPUSCULAR HEMOGLOBIN 35.7 pg (27.0-33.0); MEAN CORPUSCULAR HGB CONC 33.4 g/dl (32.0-36.5); MEAN CORPUSCULAR VOLUME 106.7 fl (80.0-96.0); MONO # 0.5 10^3/uL (0.0-0.8); MONO % 9.1 % (2.0-8.0); NEUTROPHILS # 4.2 10^3/uL (1.5-8.5); NEUTROPHILS % 72.2 % (36.0-66.0); PLATELET COUNT, AUTOMATED 194 10^3/uL (150-450); RED BLOOD COUNT 3.28 10^6/uL (4.00-5.40); WHITE BLOOD COUNT 5.8 10^3/uL (4.0-10.0)
[2020-12-05 16:29] LABS: CALCIUM LEVEL 8.9 MG/DL (8.8-10.2); CREATININE FOR GFR 1.12 MG/DL (0.55-1.30); GLOMERULAR FILTRATION RATE 49.3 (>32); PERCENT SATURATION 31.2 % (13.2-45.0); POTASSIUM SERUM 3.5 MEQ/L (3.5-5.1)
== END ==
LOC: M WUC 13:04
PROVIDERS: ATTEND Family Medicine
DX: M16.11 Unilateral primary osteoarthritis, right hip (principal); R68.81 Early satiety; R63.4 Abnormal weight loss; Z86.16 Personal history of COVID-19

== ENCOUNTER → 2021-01-04 | Outpatient (CLI) | payer MEDICARE, OTHER ==
[2021-01-04 16:39] LABS: BASO # 0.1 10^3/uL (0.0-0.2); BASO % 1.3 % (0.0-1.0); EOS # 0.1 10^3/uL (0.0-0.5); EOS % 2.9 % (0.0-3.0); HEMATOCRIT 36.6 % (36.0-47.0); HEMOGLOBIN 11.7 g/dl (12.0-15.5); LYMPH # 1.1 10^3/uL (1.5-5.0); LYMPH % 25.3 % (24.0-44.0); MEAN CORPUSCULAR HEMOGLOBIN 34.5 pg (27.0-33.0); MONO # 0.5 10^3/uL (0.0-0.8); MONO % 10.3 % (2.0-8.0); NEUTROPHILS # 2.7 10^3/uL (1.5-8.5); NEUTROPHILS % 59.8 % (36.0-66.0); PLATELET COUNT, AUTOMATED 176 10^3/uL (150-450); RED BLOOD COUNT 3.39 10^6/uL (4.00-5.40); WHITE BLOOD COUNT 4.5 10^3/uL (4.0-10.0)
[2021-01-04 17:11] LABS: ALBUMIN 2.4 GM/DL (3.2-5.2); BILIRUBIN,TOTAL 0.8 MG/DL (0.2-1.0); CALCIUM LEVEL 9.5 MG/DL (8.8-10.2); CREATININE FOR GFR 1.3 MG/DL (0.55-1.30); GLOMERULAR FILTRATION RATE 41.5 (>32); POTASSIUM SERUM 4.7 MEQ/L (3.5-5.1); TOTAL PROTEIN 6.6 GM/DL (6.4-8.2)
== END ==
LOC: M WUC 13:23
PROVIDERS: ATTEND Family Medicine
DX: R68.81 Early satiety (principal); R63.4 Abnormal weight loss

== ENCOUNTER → 2021-01-09 | Outpatient (CLI) | payer MEDICARE, OTHER ==
--- NOTE | 2021-01-09 14:32 | REP ---
INDICATION: SPONDYLOSIS. COMPARISON: None. TECHNIQUE: AP and lateral views FINDINGS: The exam is limited by the soft tissue artifact. There is a dextroconvex lumbar curve. The bones appear markedly demineralized. There is advanced disc space narrowing at every level. I cannot accurately assess vertebral body height from L1-L3 due to the artifact and degree of bony demineralization along with advanced disc space narrowing. I cannot confirm that the pedicles are intact at any level. IMPRESSION: Chronic changes and exam limitations as described above. <Electronically signed by Edward Chen > 01/09/21 [id number]
== END ==
LOC: M SOG 10:49
PROVIDERS: ATTEND Orthopaedic Surgery
DX: M47.896 Other spondylosis, lumbar region (principal); M53.86 Other specified dorsopathies, lumbar region

== ENCOUNTER 2021-04-15 13:03 | Inpatient (IN) | payer MEDICARE, OTHER ==
[~2021-04-15] VITALS: Ht 147.3 cm; Wt 59.0 kg
[~2021-04-15 13:03] MED LIST changes: -OMEP-221 PO; +OMEP40CA5 PO
[2021-04-15] MEDS ORDERED: atenoloL 25 MG TAB PO ONE (13:45)
[2021-04-15] MEDS ORDERED: APIXABAN 2.5 MG TAB (ELIQUIS) PO ONE (13:45)
[2021-04-15] MEDS: METOPROLOL 5 MG/5 ML VIAL IV SCH ×3 (13:59→14:28)
[2021-04-15 14:15] LABS: HEMATOCRIT 30.1 % (36.0-47.0); HEMOGLOBIN 10.2 g/dl (12.0-15.5); MEAN CORPUSCULAR HEMOGLOBIN 37.1 pg (27.0-33.0); MEAN CORPUSCULAR HGB CONC 33.9 g/dl (32.0-36.5); MEAN CORPUSCULAR VOLUME 109.5 fl (80.0-96.0); RED BLOOD COUNT 2.75 10^6/uL (4.00-5.40); WHITE BLOOD COUNT 5.6 10^3/uL (4.0-10.0)
[2021-04-15 14:49] LABS: CALCIUM LEVEL 7.3 MG/DL (8.8-10.2); CREATININE FOR GFR 1.15 MG/DL (0.55-1.30); FREE T4 1.14 NG/DL (0.76-1.46); GLOMERULAR FILTRATION RATE 47.9 (>32); POTASSIUM SERUM 4.9 MEQ/L (3.5-5.1); THYROID STIMULATING HORMONE 2.89 uIU/ML (0.358-3.740)
[2021-04-15] MEDS ORDERED: FURO20TA2 PO (15:02)
[2021-04-15] MEDS ORDERED: OXYC1TAB23 PO (15:02)
[2021-04-15] MEDS ORDERED: HOME MED LIST COMPLETE! XX SCH (15:05)
[2021-04-15 15:26] LABS: PLATELET COUNT, AUTOMATED 58 10^3/uL (150-450)
[2021-04-15 15:31] LABS: ATYPICAL LYMPH 4 % (0-5); LYMPHOCYTES 2 % (16-44); MONOCYTES 1 % (0-5); NEUTROPHILS 82 % (28-66)
[2021-04-15 15:32] LABS: ANISOCYTOSIS 1+; OVALOCYTES 1+; POIKILOCYTOSIS 1+
[2021-04-15 15:33] LABS: PLATELET ESTIMATE MARKED DECREASE (NORMAL)
[2021-04-15 18:00] VITALS: BP 133/99
[2021-04-15] MEDS ORDERED: NS 1,000 ML IV SCH (18:00)
[2021-04-15] MEDS: MEROPENEM INJ 1 GM in IV 1 EA IV SCH (19:27)
[2021-04-15] MEDS: APIXABAN 2.5 MG TAB (ELIQUIS) PO SCH (20:25)
[2021-04-15 22:00] VITALS: BP 107/67
[2021-04-16] VITALS (95 sets, daily range): BP systolic 65–165; BP diastolic 35–100
[2021-04-16] MEDS: CEPACOL LOZENGE PO PRN ×2 (01:25→18:41)
[2021-04-16] MEDS: MEROPENEM INJ 1 GM in IV 1 EA IV SCH ×3 (01:25→18:40)
[2021-04-16] MEDS ORDERED: DIGOXIN INJ 0.5 MG/2 ML AMP (J1160) IV STA (02:41)
[2021-04-16] MEDS: METOPROLOL 5 MG/5 ML VIAL IV SCH ×2 (03:29→04:01)
[2021-04-16] MEDS: ACETAMINOPHEN TAB 650MG DOSE (2X325MG) PO PRN ×2 (04:05→18:41)
[2021-04-16] MEDS ORDERED: NS 500 ML IV ONE ×4 (04:50→08:05)
[2021-04-16] MEDS: LEVOTHYROXINE 50MCG TABLET (0.05MG) PO SCH (06:00)
[2021-04-16 06:21] LABS: HEMATOCRIT 26.4 % (36.0-47.0); MEAN CORPUSCULAR HGB CONC 34.1 g/dl (32.0-36.5); MEAN CORPUSCULAR VOLUME 108.6 fl (80.0-96.0); RED BLOOD COUNT 2.43 10^6/uL (4.00-5.40); WHITE BLOOD COUNT 2.7 10^3/uL (4.0-10.0)
[2021-04-16 06:26] LABS: PLATELET COUNT, AUTOMATED 61 10^3/uL (150-450)
[2021-04-16 06:44] LABS: CALCIUM LEVEL 7.5 MG/DL (8.8-10.2); CREATININE FOR GFR 0.99 MG/DL (0.55-1.30); GLOMERULAR FILTRATION RATE 56.9 (>32); POTASSIUM SERUM 3.5 MEQ/L (3.5-5.1)
[2021-04-16 08:59] LABS: HEMATOCRIT 26.4 % (36.0-47.0)
[2021-04-16] MEDS ORDERED: VANCOMYCIN HCL 1,000 MG, VIAL MATE ADAPTER 1 EACH in NS 250 ML IV ONE (09:00)
[2021-04-16] MEDS ORDERED: atenoloL 25 MG TAB PO SCH (09:00)
[2021-04-16 09:22] LABS: PERCENT SATURATION 12.7 % (13.2-45.0)
[2021-04-16] MEDS: APIXABAN 2.5 MG TAB (ELIQUIS) PO SCH (10:21)
[2021-04-16] MEDS: TOLTERODINE TARTRATE 2 MG LA CAP (DETROL LA) PO SCH (10:23)
[2021-04-16] MEDS ORDERED: VANCOMYCIN HCL 1,000 MG, VIAL MATE ADAPTER 1 EACH in NS 250 ML IV SCH (15:00)
[2021-04-16] MEDS ORDERED: ePHEDrine INJ 50 MG/ML VIAL IM STA (18:30)
[2021-04-16] MEDS ORDERED: ePHEDrine INJ 50 MG/ML VIAL IV STA (18:36)
[2021-04-16] MEDS: ALPRAZolam 0.25 MG TAB PO PRN (18:41)
[2021-04-16] MEDS ORDERED: ePHEDrine INJ 50 MG/ML VIAL IM PRN (18:50)
[2021-04-16 18:52] LABS: ALBUMIN 1.6 GM/DL (3.2-5.2); BILIRUBIN,TOTAL 1.7 MG/DL (0.2-1.0); C REACTIVE PROTEIN QUANTITATIV 15.8 MG/DL (0.00-0.30); TOTAL PROTEIN 5.1 GM/DL (6.4-8.2)
[2021-04-16] MEDS ORDERED: ALPRAZolam 0.25 MG TAB PO ONE (20:35)
[2021-04-17] VITALS (52 sets, daily range): BP systolic 83–186; BP diastolic 35–109
[2021-04-17] MEDS: APIXABAN 2.5 MG TAB (ELIQUIS) PO SCH ×3 (00:08→21:35)
[2021-04-17] MEDS: MEROPENEM INJ 1 GM in IV 1 EA IV SCH ×3 (02:36→21:42)
[2021-04-17 04:51] LABS: HEMATOCRIT 22.6 % (36.0-47.0); HEMOGLOBIN 7.5 g/dl (12.0-15.5); MEAN CORPUSCULAR HEMOGLOBIN 36.8 pg (27.0-33.0); MEAN CORPUSCULAR HGB CONC 33.2 g/dl (32.0-36.5); MEAN CORPUSCULAR VOLUME 110.8 fl (80.0-96.0); RED BLOOD COUNT 2.04 10^6/uL (4.00-5.40); WHITE BLOOD COUNT 3.2 10^3/uL (4.0-10.0)
[2021-04-17 04:57] LABS: PLATELET COUNT, AUTOMATED 44 10^3/uL (150-450)
[2021-04-17 05:14] LABS: CALCIUM LEVEL 7.1 MG/DL (8.8-10.2); CREATININE FOR GFR 1.05 MG/DL (0.55-1.30); GLOMERULAR FILTRATION RATE 53.2 (>32); POTASSIUM SERUM 3.1 MEQ/L (3.5-5.1)
[2021-04-17] MEDS: LEVOTHYROXINE 50MCG TABLET (0.05MG) PO SCH (06:49)
[2021-04-17 07:04] LABS: ALBUMIN 2.4 GM/DL (3.2-5.2); BILIRUBIN,DIRECT 0.5 MG/DL (0.0-0.2); BILIRUBIN,TOTAL 0.8 MG/DL (0.2-1.0); TOTAL PROTEIN 4.8 GM/DL (6.4-8.2)
[2021-04-17] MEDS ORDERED: POTASSIUM CHLORIDE 10MEQ SR TABLET PO ONE (08:00)
[2021-04-17] MEDS ORDERED: METOPROLOL SUCC *XL* 12.5MG PER 1/2 TAB (TopROL *XL*) PO SCH (09:00)
[2021-04-17] MEDS: TOLTERODINE TARTRATE 2 MG LA CAP (DETROL LA) PO SCH (10:24)
[2021-04-17] MEDS: MIDODRINE 5 MG TAB PO SCH ×2 (10:24→11:31)
[2021-04-17] MEDS ORDERED: LIDOCAINE 1% MDV 20ML VIAL As Ordered ONE (11:09)
[2021-04-17] MEDS: LACTOBACILLUS ACIDOPHILUS CAP (BACID) PO SCH ×3 (11:31→21:35)
[2021-04-17] MEDS: ALPRAZolam 0.25 MG TAB PO PRN ×2 (12:54→22:39)
[2021-04-17] MEDS: PERCOCET 5MG/325MG TAB PO PRN (12:55)
[2021-04-17] MEDS: CEPACOL LOZENGE PO PRN (13:05)
[2021-04-17 18:02] LABS: HEMATOCRIT 34.6 % (36.0-47.0)
[2021-04-17 18:10] LABS: BACTERIA, URINE AUTO 1+ (NEGATIVE); MUCUS, URINE SMALL (NEGATIVE); RBC, URINE AUTO TNTC /HPF (0-3); SQUAMOUS EPITHELIAL CELL UR AU 0 /HPF (0-6); WBC, URINE AUTO 10 /HPF (0-3)
[2021-04-17 18:12] LABS: HEMOGLOBIN 11.6 g/dl (12.0-15.5)
[2021-04-17] MEDS: METOPROLOL TART 12.5 MG PER 1/2 TAB PO SCH (21:35)
[2021-04-18] VITALS (9 sets, daily range): BP systolic 90–132; BP diastolic 41–83
[2021-04-18] MEDS: MAG SULF 1GM/100ML (MAG RUN) 1 GM in IV 1 EA IV SCH ×2 (03:27→04:41)
[2021-04-18] MEDS: LEVOTHYROXINE 50MCG TABLET (0.05MG) PO SCH (07:32)
[2021-04-18 08:36] LABS: HEMATOCRIT 35.4 % (36.0-47.0); HEMOGLOBIN 11.9 g/dl (12.0-15.5); MEAN CORPUSCULAR HEMOGLOBIN 33.7 pg (27.0-33.0); MEAN CORPUSCULAR HGB CONC 33.6 g/dl (32.0-36.5); MEAN CORPUSCULAR VOLUME 100.3 fl (80.0-96.0); RED BLOOD COUNT 3.53 10^6/uL (4.00-5.40); WHITE BLOOD COUNT 4.5 10^3/uL (4.0-10.0)
[2021-04-18 08:37] LABS: PLATELET COUNT, AUTOMATED 74 10^3/uL (150-450)
[2021-04-18] MEDS: LACTOBACILLUS ACIDOPHILUS CAP (BACID) PO SCH ×4 (09:00→20:26)
[2021-04-18 09:06] LABS: BLOOD UREA NITROGEN 24 MG/DL (7-18); CALCIUM LEVEL 7.9 MG/DL (8.8-10.2); CARBON DIOXIDE LEVEL 25 MEQ/L (21-32); CHLORIDE LEVEL 103 MEQ/L (98-107); GLOMERULAR FILTRATION RATE > 60.0 (>32); GLUCOSE, FASTING 85 MG/DL (70-100); POTASSIUM SERUM 4.1 MEQ/L (3.5-5.1); SODIUM LEVEL 134 MEQ/L (136-145)
[2021-04-18] MEDS ORDERED: MAG SULF 1GM/100ML (MAG RUN) 1 GM in IV 1 EA IV ONE (10:25)
[2021-04-18] MEDS ORDERED: FUROSEMIDE 40MG/4ML VIAL (J1940) IV ONE (10:45)
[2021-04-18] MEDS ORDERED: traMADol 50 MG TAB PO PRN (10:50)
[2021-04-18] MEDS: METOPROLOL TART 12.5 MG PER 1/2 TAB PO SCH ×2 (10:52→20:26)
[2021-04-18] MEDS: TOLTERODINE TARTRATE 2 MG LA CAP (DETROL LA) PO SCH (10:52)
[2021-04-18] MEDS: MEROPENEM INJ 1 GM in IV 1 EA IV SCH ×2 (10:52→21:32)
[2021-04-18] MEDS: APIXABAN 2.5 MG TAB (ELIQUIS) PO SCH ×2 (10:52→20:26)
[2021-04-18] MEDS: PERCOCET 5MG/325MG TAB PO PRN (11:55)
[2021-04-18 15:11] LABS: MAGNESIUM LEVEL 1.9 MG/DL (1.7-2.2)
[2021-04-18] MEDS: CEPACOL LOZENGE PO PRN (16:29)
[2021-04-18] MEDS: SODIUM CHLORIDE 0.9% INJ 10 ML SYR IV SCH (18:09)
[2021-04-18] MEDS: ANALGESIC BALM CRM 3OZ TOP SCH (20:28)
[2021-04-18] MEDS: ALPRAZolam 0.25 MG TAB PO PRN (21:32)
[2021-04-18] MEDS: ACETAMINOPHEN TAB 650MG DOSE (2X325MG) PO PRN (21:33)
[2021-04-18 22:51] LABS: HEMOGLOBIN 12.5 g/dl (12.0-15.5)
[2021-04-19] VITALS (12 sets, daily range): BP systolic 84–131; BP diastolic 50–81
[2021-04-19] MEDS: LEVOTHYROXINE 50MCG TABLET (0.05MG) PO SCH (06:35)
[2021-04-19] MEDS: SODIUM CHLORIDE 0.9% INJ 10 ML SYR IV SCH ×2 (06:35→18:35)
[2021-04-19 06:45] LABS: HEMATOCRIT 34.7 % (36.0-47.0); HEMOGLOBIN 11.5 g/dl (12.0-15.5); MEAN CORPUSCULAR HEMOGLOBIN 33.7 pg (27.0-33.0); MEAN CORPUSCULAR HGB CONC 33.1 g/dl (32.0-36.5); MEAN CORPUSCULAR VOLUME 101.8 fl (80.0-96.0); RED BLOOD COUNT 3.41 10^6/uL (4.00-5.40); WHITE BLOOD COUNT 3.5 10^3/uL (4.0-10.0)
[2021-04-19 06:46] LABS: PLATELET COUNT, AUTOMATED 86 10^3/uL (150-450)
[2021-04-19 07:04] LABS: CALCIUM LEVEL 7.9 MG/DL (8.8-10.2); CREATININE FOR GFR 0.98 MG/DL (0.55-1.30); GLOMERULAR FILTRATION RATE 57.6 (>32); POTASSIUM SERUM 3.6 MEQ/L (3.5-5.1)
[2021-04-19] MEDS: LACTOBACILLUS ACIDOPHILUS CAP (BACID) PO SCH ×3 (07:39→20:55)
[2021-04-19] MEDS: ANALGESIC BALM CRM 3OZ TOP SCH ×2 (07:40→20:57)
[2021-04-19] MEDS: TOLTERODINE TARTRATE 2 MG LA CAP (DETROL LA) PO SCH (07:41)
[2021-04-19] MEDS: APIXABAN 2.5 MG TAB (ELIQUIS) PO SCH ×2 (07:41→20:55)
[2021-04-19] MEDS: METOPROLOL TART 12.5 MG PER 1/2 TAB PO SCH (07:42)
[2021-04-19] MEDS: CEPACOL LOZENGE PO PRN (07:43)
[2021-04-19] MEDS: MEROPENEM INJ 1 GM in IV 1 EA IV SCH (10:03)
[2021-04-19] MEDS ORDERED: METOPROLOL TART 12.5 MG PER 1/2 TAB PO ONE (13:00)
[2021-04-19] MEDS: NYSTATIN 100,000 UNITS/GM TOPICAL PWD 15 GM TOP SCH ×3 (16:00→20:57)
[2021-04-19 19:12] LABS: MAGNESIUM LEVEL 1.7 MG/DL (1.7-2.2)
[2021-04-19] MEDS: METOPROLOL TART 25 MG TABLET PO SCH (20:56)
[2021-04-19] MEDS: cefTRIAXone SOD 2 GM in D5W MINI-BAG PLUS 50 ML IV SCH (20:57)
[2021-04-19] MEDS ORDERED: METOPROLOL TART 25 MG TABLET PO SCH (21:00)
[2021-04-20 00:12] VITALS: BP 124/59
[2021-04-20] MEDS: METOPROLOL TART 25 MG TABLET PO SCH ×2 (02:45→08:26)
[2021-04-20 03:57] VITALS: BP 127/72
[2021-04-20] MEDS: LEVOTHYROXINE 50MCG TABLET (0.05MG) PO SCH (05:02)
[2021-04-20] MEDS: SODIUM CHLORIDE 0.9% INJ 10 ML SYR IV SCH ×2 (05:07→17:36)
[2021-04-20 05:31] LABS: HEMATOCRIT 35.6 % (36.0-47.0); HEMOGLOBIN 11.9 g/dl (12.0-15.5); MEAN CORPUSCULAR HEMOGLOBIN 33.8 pg (27.0-33.0); MEAN CORPUSCULAR HGB CONC 33.4 g/dl (32.0-36.5); MEAN CORPUSCULAR VOLUME 101.1 fl (80.0-96.0); PLATELET COUNT, AUTOMATED 114 10^3/uL (150-450); RED BLOOD COUNT 3.52 10^6/uL (4.00-5.40); WHITE BLOOD COUNT 3.7 10^3/uL (4.0-10.0)
[2021-04-20 05:51] LABS: BLOOD UREA NITROGEN 23 MG/DL (7-18); CALCIUM LEVEL 7.6 MG/DL (8.8-10.2); CARBON DIOXIDE LEVEL 28 MEQ/L (21-32); CHLORIDE LEVEL 101 MEQ/L (98-107); CREATININE FOR GFR 0.84 MG/DL (0.55-1.30); GLOMERULAR FILTRATION RATE > 60.0 (>32); GLUCOSE, FASTING 79 MG/DL (70-100); POTASSIUM SERUM 3.8 MEQ/L (3.5-5.1); SODIUM LEVEL 137 MEQ/L (136-145)
[2021-04-20] MEDS: LACTOBACILLUS ACIDOPHILUS CAP (BACID) PO SCH ×3 (08:25→21:40)
[2021-04-20] MEDS: APIXABAN 2.5 MG TAB (ELIQUIS) PO SCH ×2 (08:25→21:39)
[2021-04-20 08:26] VITALS: BP 165/78
[2021-04-20] MEDS: TOLTERODINE TARTRATE 2 MG LA CAP (DETROL LA) PO SCH (08:26)
[2021-04-20] MEDS: NYSTATIN 100,000 UNITS/GM TOPICAL PWD 15 GM TOP SCH ×3 (08:26→21:40)
[2021-04-20] MEDS: ANALGESIC BALM CRM 3OZ TOP SCH ×2 (08:26→21:40)
[2021-04-20] MEDS: PERCOCET 5MG/325MG TAB PO PRN (08:33)
[2021-04-20] MEDS ORDERED: PERCOCET 5MG/325MG TAB PO PRN (10:00)
[2021-04-20] MEDS ORDERED: FUROSEMIDE 40MG/4ML VIAL (J1940) IV ONE (10:30)
[2021-04-20] MEDS: FERROUS SULFATE 325MG TAB PO SCH (10:50)
[2021-04-20 11:41] LABS: MAGNESIUM LEVEL 1.7 MG/DL (1.8-2.4)
[2021-04-20] MEDS ORDERED: MAG SULF 1GM/100ML (MAG RUN) 1 GM in IV 1 EA IV ONE (13:45)
[2021-04-20] MEDS ORDERED: BOOSTRIX/ADACEL VACCINE (DIPHTH/PERTUSS/ACELL/TETANUS) 0.5ML SYR IM ONE (14:10)
[2021-04-20 16:00] VITALS: BP 155/75
[2021-04-20 20:00] VITALS: BP 134/70
[2021-04-20] MEDS: atenoloL 25 MG TAB PO SCH (21:40)
[2021-04-20] MEDS: cefTRIAXone SOD 2 GM in D5W MINI-BAG PLUS 50 ML IV SCH (21:40)
[2021-04-20] MEDS: ALPRAZolam 0.25 MG TAB PO PRN (22:40)
[2021-04-20] MEDS: SODIUM CHLORIDE 0.9% INJ 10 ML SYR IV PRN (22:40)
[2021-04-20] MEDS: SIMETHICONE 80MG CHEW TAB PO PRN (22:40)
[2021-04-21] VITALS: BP 136/74
[2021-04-21 04:00] VITALS: BP 116/62
[2021-04-21] MEDS: SODIUM CHLORIDE 0.9% INJ 10 ML SYR IV SCH ×2 (06:09→18:00)
[2021-04-21] MEDS: LEVOTHYROXINE 50MCG TABLET (0.05MG) PO SCH (06:09)
[2021-04-21 06:32] LABS: HEMATOCRIT 32.7 % (36.0-47.0); HEMOGLOBIN 11.1 g/dl (12.0-15.5); MEAN CORPUSCULAR HEMOGLOBIN 33.8 pg (27.0-33.0); MEAN CORPUSCULAR HGB CONC 33.9 g/dl (32.0-36.5); MEAN CORPUSCULAR VOLUME 99.7 fl (80.0-96.0); PLATELET COUNT, AUTOMATED 114 10^3/uL (150-450); RED BLOOD COUNT 3.28 10^6/uL (4.00-5.40); WHITE BLOOD COUNT 4.5 10^3/uL (4.0-10.0)
[2021-04-21 07:08] LABS: BLOOD UREA NITROGEN 19 MG/DL (7-18); CALCIUM LEVEL 7.9 MG/DL (8.8-10.2); CARBON DIOXIDE LEVEL 32 MEQ/L (21-32); CHLORIDE LEVEL 97 MEQ/L (98-107); CREATININE FOR GFR 0.68 MG/DL (0.55-1.30); GLOMERULAR FILTRATION RATE > 60.0 (>32); GLUCOSE, FASTING 82 MG/DL (70-100); POTASSIUM SERUM 2.9 MEQ/L (3.5-5.1); SODIUM LEVEL 135 MEQ/L (136-145)
[2021-04-21] MEDS ORDERED: KCL 10MEQ/100ML SWI (KRUN) 10 MEQ in IV 1 EA IV STA (07:11)
[2021-04-21] MEDS ORDERED: POTASSIUM CHLORIDE 10MEQ SR TABLET PO ONE ×2 (07:15→12:00)
[2021-04-21 08:00] VITALS: BP 128/68
[2021-04-21] MEDS ORDERED: KCL 10MEQ/100ML SWI (KRUN) 10 MEQ in IV 1 EA IV SCH (08:00)
[2021-04-21] MEDS ORDERED: MAG SULF 1GM/100ML (MAG RUN) 1 GM in IV 1 EA IV ONE (08:00)
[2021-04-21] MEDS ORDERED: POTASSIUM CHLORIDE 10MEQ SR TABLET PO SCH (09:00)
[2021-04-21] MEDS: AUGMENTIN 875 MG TAB PO SCH ×2 (09:10→21:43)
[2021-04-21] MEDS: LACTOBACILLUS ACIDOPHILUS CAP (BACID) PO SCH ×3 (09:10→21:43)
[2021-04-21] MEDS: ANALGESIC BALM CRM 3OZ TOP SCH ×2 (09:11→21:43)
[2021-04-21] MEDS: FERROUS SULFATE 325MG TAB PO SCH (09:11)
[2021-04-21] MEDS: APIXABAN 2.5 MG TAB (ELIQUIS) PO SCH ×2 (09:11→21:43)
[2021-04-21] MEDS: atenoloL 25 MG TAB PO SCH ×2 (09:11→21:43)
[2021-04-21] MEDS: NYSTATIN 100,000 UNITS/GM TOPICAL PWD 15 GM TOP SCH ×3 (09:12→21:43)
[2021-04-21] MEDS: TOLTERODINE TARTRATE 2 MG LA CAP (DETROL LA) PO SCH (09:15)
[2021-04-21] MEDS: SODIUM CHLORIDE 0.9% INJ 10 ML SYR IV PRN (15:57)
[2021-04-21 16:00] VITALS: BP 129/72
[2021-04-21 16:39] LABS: BLOOD UREA NITROGEN 17 MG/DL (7-18); CARBON DIOXIDE LEVEL 32 MEQ/L (21-32); CHLORIDE LEVEL 98 MEQ/L (98-107); CREATININE FOR GFR 0.72 MG/DL (0.55-1.30); GLOMERULAR FILTRATION RATE > 60.0 (>32); GLUCOSE, FASTING 85 MG/DL (70-100); POTASSIUM SERUM 4.2 MEQ/L (3.5-5.1); SODIUM LEVEL 135 MEQ/L (136-145)
[2021-04-21] MEDS ORDERED: FUROSEMIDE 40 MG TAB PO ONE (17:00)
[2021-04-21 21:41] VITALS: BP 133/58
[2021-04-21] MEDS: ALPRAZolam 0.25 MG TAB PO PRN (21:43)
[2021-04-21] MEDS: SIMETHICONE 80MG CHEW TAB PO PRN (21:43)
[2021-04-22 05:40] VITALS: BP 115/73
[2021-04-22] MEDS: LEVOTHYROXINE 50MCG TABLET (0.05MG) PO SCH (05:42)
[2021-04-22] MEDS: SODIUM CHLORIDE 0.9% INJ 10 ML SYR IV SCH ×2 (05:43→16:53)
[2021-04-22 05:59] LABS: HEMATOCRIT 33.8 % (36.0-47.0); HEMOGLOBIN 11.4 g/dl (12.0-15.5); MEAN CORPUSCULAR HEMOGLOBIN 33.9 pg (27.0-33.0); MEAN CORPUSCULAR HGB CONC 33.7 g/dl (32.0-36.5); MEAN CORPUSCULAR VOLUME 100.6 fl (80.0-96.0); PLATELET COUNT, AUTOMATED 139 10^3/uL (150-450); RED BLOOD COUNT 3.36 10^6/uL (4.00-5.40); WHITE BLOOD COUNT 8.4 10^3/uL (4.0-10.0)
[2021-04-22 06:17] LABS: BLOOD UREA NITROGEN 16 MG/DL (7-18); CALCIUM LEVEL 8.2 MG/DL (8.8-10.2); CARBON DIOXIDE LEVEL 32 MEQ/L (21-32); CHLORIDE LEVEL 97 MEQ/L (98-107); CREATININE FOR GFR 0.76 MG/DL (0.55-1.30); GLOMERULAR FILTRATION RATE > 60.0 (>32); GLUCOSE, FASTING 94 MG/DL (70-100); MAGNESIUM LEVEL 1.7 MG/DL (1.8-2.4); POTASSIUM SERUM 4.1 MEQ/L (3.5-5.1); SODIUM LEVEL 133 MEQ/L (136-145)
[2021-04-22] MEDS: AUGMENTIN 875 MG TAB PO SCH ×2 (08:26→21:19)
[2021-04-22] MEDS: LACTOBACILLUS ACIDOPHILUS CAP (BACID) PO SCH ×3 (08:26→21:19)
[2021-04-22] MEDS: FERROUS SULFATE 325MG TAB PO SCH (08:26)
[2021-04-22] MEDS: APIXABAN 2.5 MG TAB (ELIQUIS) PO SCH ×2 (08:27→21:19)
[2021-04-22] MEDS: FUROSEMIDE 40 MG TAB PO SCH (08:27)
[2021-04-22] MEDS: atenoloL 25 MG TAB PO SCH ×2 (08:28→21:19)
[2021-04-22] MEDS: TOLTERODINE TARTRATE 2 MG LA CAP (DETROL LA) PO SCH (08:29)
[2021-04-22] MEDS: NYSTATIN 100,000 UNITS/GM TOPICAL PWD 15 GM TOP SCH ×3 (08:29→21:20)
[2021-04-22] MEDS: ANALGESIC BALM CRM 3OZ TOP SCH ×2 (08:29→21:20)
[2021-04-22] MEDS ORDERED: MAGNESIUM OXIDE 400MG TAB (MAG-OX) PO SCH (09:00)
[2021-04-22] MEDS: SIMETHICONE 80MG CHEW TAB PO PRN ×2 (11:38→17:02)
[2021-04-22 20:00] VITALS: BP 121/69
[2021-04-22] MEDS: ALPRAZolam 0.25 MG TAB PO PRN (23:56)
[2021-04-23] MEDS: SODIUM CHLORIDE 0.9% INJ 10 ML SYR IV SCH ×2 (05:35→16:52)
[2021-04-23] MEDS: LEVOTHYROXINE 50MCG TABLET (0.05MG) PO SCH (05:35)
[2021-04-23 06:05] LABS: HEMATOCRIT 32.8 % (36.0-47.0); HEMOGLOBIN 10.9 g/dl (12.0-15.5); MEAN CORPUSCULAR HEMOGLOBIN 34.1 pg (27.0-33.0); MEAN CORPUSCULAR HGB CONC 33.2 g/dl (32.0-36.5); MEAN CORPUSCULAR VOLUME 102.5 fl (80.0-96.0); PLATELET COUNT, AUTOMATED 139 10^3/uL (150-450); WHITE BLOOD COUNT 5.8 10^3/uL (4.0-10.0)
[2021-04-23 06:31] LABS: BLOOD UREA NITROGEN 15 MG/DL (7-18); CARBON DIOXIDE LEVEL 34 MEQ/L (21-32); CHLORIDE LEVEL 95 MEQ/L (98-107); CREATININE FOR GFR 0.74 MG/DL (0.55-1.30); GLOMERULAR FILTRATION RATE > 60.0 (>32); GLUCOSE, FASTING 84 MG/DL (70-100); MAGNESIUM LEVEL 1.6 MG/DL (1.8-2.4); POTASSIUM SERUM 3.7 MEQ/L (3.5-5.1); SODIUM LEVEL 135 MEQ/L (136-145)
[2021-04-23 08:00] VITALS: BP 121/68
[2021-04-23] MEDS ORDERED: MAG SULF 1GM/100ML (MAG RUN) 1 GM in IV 1 EA IV ONE (08:00)
[2021-04-23] MEDS: LACTOBACILLUS ACIDOPHILUS CAP (BACID) PO SCH ×3 (08:12→22:19)
[2021-04-23] MEDS: APIXABAN 2.5 MG TAB (ELIQUIS) PO SCH ×2 (08:12→22:21)
[2021-04-23] MEDS: atenoloL 25 MG TAB PO SCH ×2 (08:13→22:21)
[2021-04-23] MEDS: FUROSEMIDE 40 MG TAB PO SCH (08:13)
[2021-04-23] MEDS: MAGNESIUM OXIDE 400MG TAB (MAG-OX) PO SCH ×2 (08:13→22:21)
[2021-04-23] MEDS: FERROUS SULFATE 325MG TAB PO SCH (08:13)
[2021-04-23] MEDS: ANALGESIC BALM CRM 3OZ TOP SCH ×2 (08:14→21:00)
[2021-04-23] MEDS: NYSTATIN 100,000 UNITS/GM TOPICAL PWD 15 GM TOP SCH ×3 (08:14→21:00)
[2021-04-23] MEDS: AUGMENTIN 875 MG TAB PO SCH (09:11)
[2021-04-23] MEDS: TOLTERODINE TARTRATE 2 MG LA CAP (DETROL LA) PO SCH (09:11)
[2021-04-23] MEDS: SODIUM CHLORIDE 0.9% INJ 10 ML SYR IV PRN (09:29)
[2021-04-23 12:00] VITALS: BP 122/68
[2021-04-23 18:15] VITALS: BP 100/63
[2021-04-23] MEDS: FIBER-CON 625 MG TAB PO SCH (22:19)
[2021-04-23] MEDS: ALPRAZolam 0.25 MG TAB PO PRN (22:19)
[2021-04-24 06:00] VITALS: BP 109/64
[2021-04-24] MEDS: LEVOTHYROXINE 50MCG TABLET (0.05MG) PO SCH (06:00)
[2021-04-24] MEDS: SODIUM CHLORIDE 0.9% INJ 10 ML SYR IV SCH (06:00)
[2021-04-24 07:23] LABS: HEMATOCRIT 33.2 % (36.0-47.0); MEAN CORPUSCULAR HEMOGLOBIN 33.4 pg (27.0-33.0); MEAN CORPUSCULAR HGB CONC 33.1 g/dl (32.0-36.5); MEAN CORPUSCULAR VOLUME 100.9 fl (80.0-96.0); PLATELET COUNT, AUTOMATED 159 10^3/uL (150-450); RED BLOOD COUNT 3.29 10^6/uL (4.00-5.40)
[2021-04-24 07:50] LABS: BLOOD UREA NITROGEN 14 MG/DL (7-18); CALCIUM LEVEL 8.2 MG/DL (8.8-10.2); CARBON DIOXIDE LEVEL 32 MEQ/L (21-32); CHLORIDE LEVEL 93 MEQ/L (98-107); CREATININE FOR GFR 0.77 MG/DL (0.55-1.30); GLOMERULAR FILTRATION RATE > 60.0 (>32); GLUCOSE, FASTING 81 MG/DL (70-100); MAGNESIUM LEVEL 1.8 MG/DL (1.8-2.4); POTASSIUM SERUM 3.4 MEQ/L (3.5-5.1); SODIUM LEVEL 133 MEQ/L (136-145)
[2021-04-24] MEDS ORDERED: FURO40TA2 PO (07:51)
[2021-04-24] MEDS ORDERED: FERR1TAB8 PO (07:51)
[2021-04-24] MEDS ORDERED: ATEN25TA PO (07:51)
[2021-04-24] MEDS ORDERED: RISATAB3 PO (07:51)
[2021-04-24] MEDS ORDERED: MAGN400T2 PO (07:51)
[2021-04-24] MEDS ORDERED: K-TA10TA2 PO (07:53)
[2021-04-24] MEDS ORDERED: VITA500C24 PO (07:53)
[2021-04-24] MEDS: FUROSEMIDE 40 MG TAB PO SCH (08:17)
[2021-04-24] MEDS: FIBER-CON 625 MG TAB PO SCH (08:17)
[2021-04-24 08:18] VITALS: BP 112/66
[2021-04-24] MEDS: MAGNESIUM OXIDE 400MG TAB (MAG-OX) PO SCH (08:18)
[2021-04-24] MEDS: APIXABAN 2.5 MG TAB (ELIQUIS) PO SCH (08:18)
[2021-04-24] MEDS: atenoloL 25 MG TAB PO SCH (08:18)
[2021-04-24] MEDS: FERROUS SULFATE 325MG TAB PO SCH (08:18)
[2021-04-24] MEDS: LACTOBACILLUS ACIDOPHILUS CAP (BACID) PO SCH (08:18)
[2021-04-24] MEDS: TOLTERODINE TARTRATE 2 MG LA CAP (DETROL LA) PO SCH (08:18)
[2021-04-24] MEDS: ANALGESIC BALM CRM 3OZ TOP SCH (08:19)
[2021-04-24] MEDS: NYSTATIN 100,000 UNITS/GM TOPICAL PWD 15 GM TOP SCH (08:20)
== END 2021-04-24 11:45 | DRG 871 ==
LOC: EDBD 13:03 → M ED 13:03 → M ED INP 15:33 → M MSPAV 17:58 → M PCU 04-16 03:19 → M MS5PR 04-23 18:00
PROVIDERS: ADMIT Internal Medicine; ATTEND General Practice
PROC: 02HV33Z Insertion of Infusion Device into Superior Vena Cava, Percutaneous Approach (ICD-10-PCS; principal; 2021-04-17 15:00)
DX: A41.50 Gram-negative sepsis, unspecified (principal); I50.33 Acute on chronic diastolic (congestive) heart failure; I48.20 Chronic atrial fibrillation, unspecified; J90 Pleural effusion, not elsewhere classified; D61.818 Other pancytopenia; Z79.01 Long term (current) use of anticoagulants; I11.0 Hypertensive heart disease with heart failure; E03.9 Hypothyroidism, unspecified; Z86.16 Personal history of COVID-19; G47.33 Obstructive sleep apnea (adult) (pediatric); F32.A Depression, unspecified; N32.81 Overactive bladder; K58.9 Irritable bowel syndrome, unspecified; Z96.651 Presence of right artificial knee joint; Z88.5 Allergy status to narcotic agent; Z88.8 Allergy status to other drugs, medicaments and biological substances; Z91.048 Other nonmedicinal substance allergy status; K44.9 Diaphragmatic hernia without obstruction or gangrene; K21.9 Gastro-esophageal reflux disease without esophagitis; D69.6 Thrombocytopenia, unspecified; Z79.899 Other long term (current) drug therapy; I95.9 Hypotension, unspecified; R29.6 Repeated falls; E87.6 Hypokalemia; S91.351A Open bite, right foot, initial encounter; W55.01XA Bitten by cat, initial encounter; Y92.9 Unspecified place or not applicable; R65.20 Severe sepsis without septic shock; Z20.822 Contact with and (suspected) exposure to COVID-19

== ENCOUNTER → 2021-04-24 | Outpatient (REF) | payer MEDICARE, OTHER ==
[~2021-04-24] MED LIST changes: +FERR1TAB8 PO; +FURO40TA2 PO; +K-TA10TA2 PO; +MAGN400T2 PO; +OXYC1TAB23 PO; +RISATAB3 PO; +VITA500C24 PO
== END ==
PROVIDERS: ATTEND Physician Assistant
DX: Z20.822 Contact with and (suspected) exposure to COVID-19 (principal)

== ENCOUNTER → 2021-04-25 | Outpatient (REF) | PROVIDERS: ATTEND Physician Assistant | DX: Z79.899 Other long term (current) drug therapy (principal); Z16.12 Extended spectrum beta lactamase (ESBL) resistance ==

== ENCOUNTER → 2021-04-25 | Outpatient (REF) ==
[2021-04-25 14:58] LABS: CLOSTRIDIUM DIFFICILE PCR NEGATIVE (NEGATIVE)
== END ==
PROVIDERS: ATTEND Physician Assistant
DX: R19.5 Other fecal abnormalities (principal)

== ENCOUNTER → 2021-04-30 | Outpatient (REF) | payer MEDICARE, OTHER ==
[2021-04-30 11:05] LABS: HEMATOCRIT 36.5 % (36.0-47.0); HEMOGLOBIN 11.9 g/dl (12.0-15.5); MEAN CORPUSCULAR HEMOGLOBIN 33.5 pg (27.0-33.0); MEAN CORPUSCULAR HGB CONC 32.6 g/dl (32.0-36.5); MEAN CORPUSCULAR VOLUME 102.8 fl (80.0-96.0); PLATELET COUNT, AUTOMATED 314 10^3/uL (150-450); RED BLOOD COUNT 3.55 10^6/uL (4.00-5.40); WHITE BLOOD COUNT 5.7 10^3/uL (4.0-10.0)
[2021-04-30 11:31] LABS: CALCIUM LEVEL 8.4 MG/DL (8.8-10.2); CREATININE FOR GFR 1.32 MG/DL (0.55-1.30); GLOMERULAR FILTRATION RATE 40.8 (>32); POTASSIUM SERUM 3.6 MEQ/L (3.5-5.1)
== END ==
PROVIDERS: ATTEND Physician Assistant
DX: A04.72 Enterocolitis due to Clostridium difficile, not specified as recurrent (principal); Z79.899 Other long term (current) drug therapy

== ENCOUNTER → 2021-05-07 | Outpatient (REF) ==
[2021-05-07 10:37] LABS: HEMATOCRIT 32.8 % (36.0-47.0); HEMOGLOBIN 10.6 g/dl (12.0-15.5); MEAN CORPUSCULAR HEMOGLOBIN 33.1 pg (27.0-33.0); MEAN CORPUSCULAR HGB CONC 32.3 g/dl (32.0-36.5); MEAN CORPUSCULAR VOLUME 102.5 fl (80.0-96.0); PLATELET COUNT, AUTOMATED 195 10^3/uL (150-450); WHITE BLOOD COUNT 4.7 10^3/uL (4.0-10.0)
[2021-05-07 11:04] LABS: CALCIUM LEVEL 8.5 MG/DL (8.8-10.2); CREATININE FOR GFR 1.3 MG/DL (0.55-1.30); GLOMERULAR FILTRATION RATE 41.5 (>32); MAGNESIUM LEVEL 1.9 MG/DL (1.8-2.4); POTASSIUM SERUM 3.3 MEQ/L (3.5-5.1)
== END ==
PROVIDERS: ATTEND Internal Medicine
DX: A04.72 Enterocolitis due to Clostridium difficile, not specified as recurrent (principal)

== ENCOUNTER → 2021-05-09 | Outpatient (REF) ==
[2021-05-09 12:08] LABS: HEMATOCRIT 33.2 % (36.0-47.0); HEMOGLOBIN 10.9 g/dl (12.0-15.5); MEAN CORPUSCULAR HEMOGLOBIN 33.9 pg (27.0-33.0); MEAN CORPUSCULAR HGB CONC 32.8 g/dl (32.0-36.5); MEAN CORPUSCULAR VOLUME 103.1 fl (80.0-96.0); PLATELET COUNT, AUTOMATED 205 10^3/uL (150-450); RED BLOOD COUNT 3.22 10^6/uL (4.00-5.40); WHITE BLOOD COUNT 5.2 10^3/uL (4.0-10.0)
[2021-05-09 12:44] LABS: CALCIUM LEVEL 8.7 MG/DL (8.8-10.2); CREATININE FOR GFR 1.17 MG/DL (0.55-1.30); GLOMERULAR FILTRATION RATE 46.9 (>32); POTASSIUM SERUM 3.3 MEQ/L (3.5-5.1)
== END ==
PROVIDERS: ATTEND Physician Assistant
DX: D64.9 Anemia, unspecified (principal)

== ENCOUNTER → 2021-05-15 | Outpatient (REF) ==
[2021-05-15 15:59] LABS: CALCIUM LEVEL 8.3 MG/DL (8.8-10.2); CREATININE FOR GFR 1.08 MG/DL (0.55-1.30); GLOMERULAR FILTRATION RATE 51.5 (>32); POTASSIUM SERUM 3.4 MEQ/L (3.5-5.1)
== END ==
PROVIDERS: ATTEND Physician Assistant
DX: E87.6 Hypokalemia (principal)

== ENCOUNTER → 2021-05-18 | Outpatient (REF) ==
[2021-05-18 16:13] LABS: CALCIUM LEVEL 8.5 MG/DL (8.8-10.2); CREATININE FOR GFR 1.08 MG/DL (0.55-1.30); GLOMERULAR FILTRATION RATE 51.5 (>32); POTASSIUM SERUM 3.6 MEQ/L (3.5-5.1)
== END ==
PROVIDERS: ATTEND Internal Medicine
DX: E87.6 Hypokalemia (principal)

== ENCOUNTER → 2021-05-21 | Outpatient (REF) ==
[2021-05-21 11:46] LABS: HEMATOCRIT 34.8 % (36.0-47.0); HEMOGLOBIN 11.4 g/dl (12.0-15.5); MEAN CORPUSCULAR HEMOGLOBIN 32.8 pg (27.0-33.0); MEAN CORPUSCULAR HGB CONC 32.8 g/dl (32.0-36.5); PLATELET COUNT, AUTOMATED 255 10^3/uL (150-450); RED BLOOD COUNT 3.48 10^6/uL (4.00-5.40); WHITE BLOOD COUNT 5.6 10^3/uL (4.0-10.0)
[2021-05-21 12:08] LABS: CALCIUM LEVEL 8.7 MG/DL (8.8-10.2); CREATININE FOR GFR 1.12 MG/DL (0.55-1.30); GLOMERULAR FILTRATION RATE 49.3 (>32); POTASSIUM SERUM 4.1 MEQ/L (3.5-5.1)
== END ==
PROVIDERS: ATTEND Physician Assistant
DX: A04.72 Enterocolitis due to Clostridium difficile, not specified as recurrent (principal)

== ENCOUNTER 2021-05-23 14:20 | Outpatient (CLI) | payer MEDICARE, OTHER ==
[~2021-05-23] VITALS: Ht 148.6 cm; Wt 55.0 kg
[2021-05-23] MEDS ORDERED: NS IV ONE (14:30)
[2021-05-23] MEDS ORDERED: BEZLOTOXUMAB IV ONE (14:30)
[2021-05-23 14:42] VITALS: BP 106/57
[2021-05-23 15:57] VITALS: BP 102/53
[2021-05-23 16:30] VITALS: BP 108/60
== END 2021-05-23 16:30 | disposition home or self-care (01) ==
LOC: M INFU 14:20
PROVIDERS: ATTEND Internal Medicine Infectious Disease
DX: A04.72 Enterocolitis due to Clostridium difficile, not specified as recurrent (principal); Z88.8 Allergy status to other drugs, medicaments and biological substances; Z88.6 Allergy status to analgesic agent
CPT/HCPCS: 96365; J0565

== ENCOUNTER → 2021-05-23 | Outpatient (REF) ==
[2021-05-23 09:51] LABS: BASO % 0.9 % (0.0-1.0); EOS # 0.2 10^3/uL (0.0-0.5); EOS % 3.2 % (0.0-3.0); HEMATOCRIT 32.7 % (36.0-47.0); HEMOGLOBIN 10.4 g/dl (12.0-15.5); LYMPH # 1.1 10^3/uL (1.5-5.0); LYMPH % 22.6 % (24.0-44.0); MEAN CORPUSCULAR HEMOGLOBIN 32.9 pg (27.0-33.0); MEAN CORPUSCULAR HGB CONC 31.8 g/dl (32.0-36.5); MEAN CORPUSCULAR VOLUME 103.5 fl (80.0-96.0); MONO # 0.4 10^3/uL (0.0-0.8); MONO % 7.7 % (2.0-8.0); NEUTROPHILS # 3.1 10^3/uL (1.5-8.5); NEUTROPHILS % 65.2 % (36.0-66.0); PLATELET COUNT, AUTOMATED 247 10^3/uL (150-450); RED BLOOD COUNT 3.16 10^6/uL (4.00-5.40); WHITE BLOOD COUNT 4.7 10^3/uL (4.0-10.0)
[2021-05-23 10:27] LABS: CALCIUM LEVEL 8.8 MG/DL (8.8-10.2); CREATININE FOR GFR 1.15 MG/DL (0.55-1.30); GLOMERULAR FILTRATION RATE 47.9 (>32); POTASSIUM SERUM 3.6 MEQ/L (3.5-5.1)
== END ==
PROVIDERS: ATTEND Internal Medicine
DX: D64.9 Anemia, unspecified (principal)

== ENCOUNTER 2021-06-05 14:06 | Inpatient (IN) | payer MEDICARE, OTHER ==
[~2021-06-05] VITALS: Ht 147.3 cm; Wt 54.3 kg
[2021-06-05] MEDS ORDERED: METO25TA PO (14:22)
[2021-06-05] MEDS ORDERED: TORS20TA2 PO (14:22)
[2021-06-05] MEDS ORDERED: SPIR-10 PO (14:22)
[2021-06-05] MEDS ORDERED: ALPR0.25 (14:22)
[2021-06-05] MEDS ORDERED: POTA1TAB23 (14:22)
[2021-06-05] MEDS ORDERED: NS 500 ML IV ONE ×2 (15:05→16:30)
[2021-06-05 16:17] LABS: CALCIUM LEVEL 9.4 MG/DL (8.8-10.2); CREATININE FOR GFR 2.18 MG/DL (0.55-1.30); GLOMERULAR FILTRATION RATE 22.9 (>32)
[2021-06-05 17:05] LABS: HEMATOCRIT 33.5 % (36.0-47.0); HEMOGLOBIN 11.4 g/dl (12.0-15.5); MEAN CORPUSCULAR HEMOGLOBIN 33.1 pg (27.0-33.0); MEAN CORPUSCULAR VOLUME 97.4 fl (80.0-96.0); PLATELET COUNT, AUTOMATED 273 10^3/uL (150-450); RED BLOOD COUNT 3.44 10^6/uL (4.00-5.40); WHITE BLOOD COUNT 5.6 10^3/uL (4.0-10.0)
[2021-06-05] MEDS ORDERED: NS 1,000 ML IV SCH (17:10)
[2021-06-05] MEDS ORDERED: atenoloL 25 MG TAB PO ONE (17:10)
[2021-06-05] MEDS ORDERED: RISATAB3 PO (17:26)
[2021-06-05] MEDS ORDERED: K-TA10TA2 PO (17:31)
[2021-06-05] MEDS ORDERED: ACET-897 PO (17:31)
[2021-06-05] MEDS ORDERED: DIFI200T PO (17:31)
[2021-06-05] MEDS ORDERED: HOME MED LIST COMPLETE! XX SCH (17:35)
[2021-06-05 18:46] LABS: RSV AMPLIFICATION NEGATIVE (NEGATIVE)
[2021-06-05] MEDS ORDERED: APIXABAN 2.5 MG TAB (ELIQUIS) PO SCH (21:00)
[2021-06-05 21:36] VITALS: BP 111/76
[2021-06-05] MEDS: atenoloL 25 MG TAB PO SCH (22:02)
[2021-06-05] MEDS: LACTOBACILLUS ACIDOPHILUS CAP (BACID) PO SCH (22:02)
[2021-06-05] MEDS: ALPRAZolam 0.25 MG TAB PO PRN (22:04)
[2021-06-06] VITALS (15 sets, daily range): BP systolic 78–102; BP diastolic 40–65
[2021-06-06] MEDS ORDERED: SODIUM CHLORIDE 0.9% 250ML IV ONE (01:25)
[2021-06-06 06:03] LABS: HEMATOCRIT 33.4 % (36.0-47.0); HEMOGLOBIN 10.8 g/dl (12.0-15.5); MEAN CORPUSCULAR HEMOGLOBIN 32.5 pg (27.0-33.0); MEAN CORPUSCULAR HGB CONC 32.3 g/dl (32.0-36.5); MEAN CORPUSCULAR VOLUME 100.6 fl (80.0-96.0); PLATELET COUNT, AUTOMATED 222 10^3/uL (150-450); RED BLOOD COUNT 3.32 10^6/uL (4.00-5.40)
[2021-06-06] MEDS: LEVOTHYROXINE 50MCG TABLET (0.05MG) PO SCH (06:15)
[2021-06-06 06:31] LABS: CALCIUM LEVEL 8.7 MG/DL (8.8-10.2); CREATININE FOR GFR 1.84 MG/DL (0.55-1.30); GLOMERULAR FILTRATION RATE 27.8 (>32); MAGNESIUM LEVEL 1.6 MG/DL (1.8-2.4); POTASSIUM SERUM 3.8 MEQ/L (3.5-5.1)
[2021-06-06] MEDS: ASCORBIC ACID 500 MG TAB PO SCH (08:43)
[2021-06-06] MEDS: LACTOBACILLUS ACIDOPHILUS CAP (BACID) PO SCH ×2 (08:43→20:01)
[2021-06-06] MEDS: FERROUS SULFATE 325MG TAB PO SCH (08:43)
[2021-06-06] MEDS: TOLTERODINE TARTRATE 2 MG LA CAP (DETROL LA) PO SCH (08:46)
[2021-06-06] MEDS: atenoloL 25 MG TAB PO SCH ×2 (08:54→19:58)
[2021-06-06] MEDS: NS 1,000 ML IV SCH ×3 (08:56→22:43)
[2021-06-06 10:51] LABS: APPEARANCE, URINE MANUAL TURBID (CLEAR); COLOR, URINE MANUAL RED (YELLOW); PH,URINE MAN OBSCURED UNITS (5.0 - 7.0)
[2021-06-06 10:52] LABS: BILIRUBIN, URINE MANUAL OBSCURED (NEGATIVE); BLOOD URINE MANUAL POSITIVE (NEGATIVE); GLUCOSE, URINE (UA) MANUAL NEGATIVE (NEGATIVE); KETONE, URINE MANUAL OBSCURED mg/dL (NEGATIVE); LEUKOCYTE ESTERASE, URINE MAN OBSCURED (NEGATIVE); NITRITE, URINE MANUAL OBSCURED (NEGATIVE); PROTEIN, URINE MANUAL 3+ mg/dL (NEGATIVE); SPECIFIC GRAVITY,URINE MANUAL 1.015 (1.002-1.035); UROBILINOGEN, URINE MANUAL OBSCURED mg/dl (NORMAL)
[2021-06-06 10:53] LABS: BACTERIA, URINE SMALL AMOUNT; HYALINE CAST, URINE NONE SEEN /lpf (0-1); RBC, URINE TNTC /hpf (0-3); SQUAMOUS EPITHELIAL CELL URINE NONE SEEN /hpf (SMALL AMT); WBC, URINE 20-30 /hpf (0-3)
[2021-06-06] MEDS ORDERED: NS 500 ML IV ONE (11:45)
[2021-06-06] MEDS: cefTRIAXone SOD 1 GM in D5W MINI-BAG PLUS 50 ML IV SCH (12:13)
[2021-06-06] MEDS ORDERED: NS 1,000 ML IV ONE (13:15)
[2021-06-06 14:00] LABS: HEMATOCRIT 31.9 % (36.0-47.0); HEMOGLOBIN 10.5 g/dl (12.0-15.5)
[2021-06-06 14:26] LABS: CALCIUM LEVEL 8.3 MG/DL (8.8-10.2); CREATININE FOR GFR 1.62 MG/DL (0.55-1.30); GLOMERULAR FILTRATION RATE 32.2 (>32)
[2021-06-06] MEDS: ACETAMINOPHEN TAB 650MG DOSE (2X325MG) PO PRN ×2 (17:28→20:00)
[2021-06-06] MEDS: ALPRAZolam 0.25 MG TAB PO PRN (20:00)
[2021-06-06 22:01] LABS: HEMATOCRIT 29.1 % (36.0-47.0); HEMOGLOBIN 9.5 g/dl (12.0-15.5)
[2021-06-07] VITALS (8 sets, daily range): BP systolic 94–138; BP diastolic 60–82
[2021-06-07] MEDS: LEVOTHYROXINE 50MCG TABLET (0.05MG) PO SCH (05:13)
[2021-06-07 05:53] LABS: HEMATOCRIT 27.7 % (36.0-47.0); MEAN CORPUSCULAR HEMOGLOBIN 33.2 pg (27.0-33.0); MEAN CORPUSCULAR HGB CONC 32.5 g/dl (32.0-36.5); MEAN CORPUSCULAR VOLUME 102.2 fl (80.0-96.0); PLATELET COUNT, AUTOMATED 153 10^3/uL (150-450); RED BLOOD COUNT 2.71 10^6/uL (4.00-5.40); WHITE BLOOD COUNT 4.8 10^3/uL (4.0-10.0)
[2021-06-07 06:12] LABS: CALCIUM LEVEL 7.9 MG/DL (8.8-10.2); CREATININE FOR GFR 1.18 MG/DL (0.55-1.30); GLOMERULAR FILTRATION RATE 46.5 (>32); MAGNESIUM LEVEL 1.4 MG/DL (1.8-2.4); POTASSIUM SERUM 3.6 MEQ/L (3.5-5.1)
[2021-06-07] MEDS: MAG SULF 1GM/100ML (MAG RUN) 1 GM in IV 1 EA IV SCH ×2 (08:22→10:02)
[2021-06-07] MEDS: ASCORBIC ACID 500 MG TAB PO SCH (08:23)
[2021-06-07] MEDS: FERROUS SULFATE 325MG TAB PO SCH (08:23)
[2021-06-07] MEDS: atenoloL 25 MG TAB PO SCH ×2 (08:23→20:25)
[2021-06-07] MEDS: LACTOBACILLUS ACIDOPHILUS CAP (BACID) PO SCH ×2 (08:23→20:25)
[2021-06-07] MEDS: FIDAXOMICIN 200 MG TAB (DIFICID) PO SCH ×2 (08:23→10:02)
[2021-06-07] MEDS: TOLTERODINE TARTRATE 2 MG LA CAP (DETROL LA) PO SCH (08:24)
[2021-06-07 12:01] LABS: HEMATOCRIT 27.8 % (36.0-47.0)
[2021-06-07] MEDS: cefTRIAXone SOD 1 GM in D5W MINI-BAG PLUS 50 ML IV SCH (12:18)
[2021-06-07 18:07] LABS: HEMATOCRIT 29.4 % (36.0-47.0); HEMOGLOBIN 9.7 g/dl (12.0-15.5)
[2021-06-07] MEDS: ALPRAZolam 0.25 MG TAB PO PRN (20:25)
[2021-06-08] VITALS: BP 90/50
[2021-06-08 00:14] LABS: HEMATOCRIT 26.3 % (36.0-47.0); HEMOGLOBIN 8.7 g/dl (12.0-15.5)
[2021-06-08 04:00] VITALS: BP 97/58
[2021-06-08] MEDS: LEVOTHYROXINE 50MCG TABLET (0.05MG) PO SCH (04:52)
[2021-06-08 05:39] LABS: HEMATOCRIT 27.7 % (36.0-47.0); MEAN CORPUSCULAR HEMOGLOBIN 33.1 pg (27.0-33.0); MEAN CORPUSCULAR HGB CONC 32.5 g/dl (32.0-36.5); MEAN CORPUSCULAR VOLUME 101.8 fl (80.0-96.0); PLATELET COUNT, AUTOMATED 168 10^3/uL (150-450); RED BLOOD COUNT 2.72 10^6/uL (4.00-5.40); WHITE BLOOD COUNT 4.5 10^3/uL (4.0-10.0)
[2021-06-08 06:03] LABS: BLOOD UREA NITROGEN 23 MG/DL (7-18); CALCIUM LEVEL 8.2 MG/DL (8.8-10.2); CARBON DIOXIDE LEVEL 25 MEQ/L (21-32); CHLORIDE LEVEL 105 MEQ/L (98-107); CREATININE FOR GFR 0.83 MG/DL (0.55-1.30); GLOMERULAR FILTRATION RATE > 60.0 (>32); GLUCOSE, FASTING 86 MG/DL (70-100); POTASSIUM SERUM 3.5 MEQ/L (3.5-5.1); SODIUM LEVEL 135 MEQ/L (136-145)
[2021-06-08 08:00] VITALS: BP 99/63
[2021-06-08] MEDS: atenoloL 25 MG TAB PO SCH ×2 (09:00→20:17)
[2021-06-08] MEDS: LACTOBACILLUS ACIDOPHILUS CAP (BACID) PO SCH ×2 (09:18→20:16)
[2021-06-08] MEDS: TOLTERODINE TARTRATE 2 MG LA CAP (DETROL LA) PO SCH (09:18)
[2021-06-08] MEDS: FERROUS SULFATE 325MG TAB PO SCH (09:19)
[2021-06-08] MEDS: ASCORBIC ACID 500 MG TAB PO SCH (09:19)
[2021-06-08] MEDS ORDERED: ISOVUE-370 76% 100ML VIAL As Ordered ONE (09:46)
[2021-06-08] MEDS: cefTRIAXone SOD 1 GM in D5W MINI-BAG PLUS 50 ML IV SCH (12:08)
[2021-06-08 16:03] VITALS: BP 109/78
[2021-06-08 20:00] VITALS: BP 112/79
[2021-06-08] MEDS: ALPRAZolam 0.25 MG TAB PO PRN (20:16)
[2021-06-09 04:05] VITALS: BP 108/58
[2021-06-09 05:37] LABS: HEMATOCRIT 26.3 % (36.0-47.0); HEMOGLOBIN 8.7 g/dl (12.0-15.5); MEAN CORPUSCULAR HEMOGLOBIN 32.8 pg (27.0-33.0); MEAN CORPUSCULAR HGB CONC 33.1 g/dl (32.0-36.5); MEAN CORPUSCULAR VOLUME 99.2 fl (80.0-96.0); PLATELET COUNT, AUTOMATED 189 10^3/uL (150-450); RED BLOOD COUNT 2.65 10^6/uL (4.00-5.40); WHITE BLOOD COUNT 4.8 10^3/uL (4.0-10.0)
[2021-06-09 05:59] LABS: BLOOD UREA NITROGEN 24 MG/DL (7-18); CALCIUM LEVEL 8.5 MG/DL (8.8-10.2); CARBON DIOXIDE LEVEL 26 MEQ/L (21-32); CHLORIDE LEVEL 105 MEQ/L (98-107); CREATININE FOR GFR 0.84 MG/DL (0.55-1.30); GLOMERULAR FILTRATION RATE > 60.0 (>32); GLUCOSE, FASTING 99 MG/DL (70-100); MAGNESIUM LEVEL 1.8 MG/DL (1.8-2.4); POTASSIUM SERUM 3.7 MEQ/L (3.5-5.1); SODIUM LEVEL 136 MEQ/L (136-145)
[2021-06-09] MEDS: LEVOTHYROXINE 50MCG TABLET (0.05MG) PO SCH (06:34)
[2021-06-09 07:53] VITALS: BP 99/59
[2021-06-09] MEDS ORDERED: FURO20TA2 PO (08:35)
[2021-06-09] MEDS ORDERED: CEFD300C41 PO (08:35)
[2021-06-09] MEDS: ASCORBIC ACID 500 MG TAB PO SCH (08:42)
[2021-06-09] MEDS: LACTOBACILLUS ACIDOPHILUS CAP (BACID) PO SCH (08:42)
[2021-06-09] MEDS: TOLTERODINE TARTRATE 2 MG LA CAP (DETROL LA) PO SCH (08:42)
[2021-06-09] MEDS: FERROUS SULFATE 325MG TAB PO SCH (08:42)
[2021-06-09] MEDS: FIDAXOMICIN 200 MG TAB (DIFICID) PO SCH (08:42)
[2021-06-09] MEDS: atenoloL 25 MG TAB PO SCH (08:43)
[2021-06-09] MEDS ORDERED: FUROSEMIDE 10MG PER 1/2 TABLET PO SCH (09:00)
[2021-06-09 09:17] VITALS: BP 114/74
== END 2021-06-09 11:46 | disposition home health service (06) | DRG 683 ==
LOC: M ED 14:06 → M ED INP 17:06 → M PCU 21:33
PROVIDERS: ADMIT Family Medicine; ATTEND Family Medicine
DX: N17.9 Acute kidney failure, unspecified (principal); I48.20 Chronic atrial fibrillation, unspecified; A04.72 Enterocolitis due to Clostridium difficile, not specified as recurrent; D62 Acute posthemorrhagic anemia; F41.9 Anxiety disorder, unspecified; I10 Essential (primary) hypertension; M41.80 Other forms of scoliosis, site unspecified; Z96.651 Presence of right artificial knee joint; Z96.611 Presence of right artificial shoulder joint; Z90.49 Acquired absence of other specified parts of digestive tract; Z79.01 Long term (current) use of anticoagulants; Z79.899 Other long term (current) drug therapy; Z88.1 Allergy status to other antibiotic agents; Z88.5 Allergy status to narcotic agent; Z88.8 Allergy status to other drugs, medicaments and biological substances; E86.0 Dehydration; I95.9 Hypotension, unspecified; R31.9 Hematuria, unspecified; N30.90 Cystitis, unspecified without hematuria

== ENCOUNTER → 2021-07-11 | Outpatient (CLI) | payer MEDICARE, OTHER ==
[~2021-07-11] MED LIST changes: +ACET-897 PO; +ALPR0.25; +CEFD300C41 PO; +DIFI200T PO; +METO25TA PO; +POTA1TAB23; +SPIR-10 PO; +TORS20TA2 PO
== END ==
LOC: M PAIN 10:15
PROVIDERS: ATTEND Nurse Practitioner Family
DX: M79.10 Myalgia, unspecified site (principal); Z86.59 Personal history of other mental and behavioral disorders; Z96.611 Presence of right artificial shoulder joint; Z96.651 Presence of right artificial knee joint; Z88.5 Allergy status to narcotic agent; Z88.8 Allergy status to other drugs, medicaments and biological substances; Z91.018 Allergy to other foods; Z79.899 Other long term (current) drug therapy

== ENCOUNTER 2021-08-30 18:52 | Inpatient (IN) | payer MEDICARE, OTHER ==
[~2021-08-30] VITALS: Ht 149.9 cm; Wt 53.1 kg
[2021-08-30 20:16] LABS: BASO % 0.9 % (0.0-1.0); EOS # 0.1 10^3/uL (0.0-0.5); EOS % 2.2 % (0.0-3.0); HEMATOCRIT 37.4 % (36.0-47.0); HEMOGLOBIN 12.6 g/dl (12.0-15.5); LYMPH # 1.1 10^3/uL (1.5-5.0); LYMPH % 24.8 % (24.0-44.0); MEAN CORPUSCULAR HEMOGLOBIN 35.8 pg (27.0-33.0); MEAN CORPUSCULAR HGB CONC 33.7 g/dl (32.0-36.5); MEAN CORPUSCULAR VOLUME 106.3 fl (80.0-96.0); MONO # 0.5 10^3/uL (0.0-0.8); MONO % 9.8 % (2.0-8.0); NEUTROPHILS # 2.9 10^3/uL (1.5-8.5); NEUTROPHILS % 62.1 % (36.0-66.0); PLATELET COUNT, AUTOMATED 147 10^3/uL (150-450); RED BLOOD COUNT 3.52 10^6/uL (4.00-5.40); WHITE BLOOD COUNT 4.6 10^3/uL (4.0-10.0)
[2021-08-30 20:29] LABS: INR 1.06; PROTHROMBIN TIME 14.2 SECONDS (12.7-14.5)
[2021-08-30 20:30] LABS: PARTIAL THROMBOPLASTIN TIME 29.4 SECONDS (25.9-37.0)
[2021-08-30 20:43] LABS: CK-MB VALUE MASS 1.1 NG/ML (<3.6); MB/CK RELATIVE INDEX 0.99 (< OR =4)
[2021-08-30 20:44] LABS: CALCIUM LEVEL 9.4 MG/DL (8.8-10.2); CREATININE FOR GFR 1.03 MG/DL (0.55-1.30); GLOMERULAR FILTRATION RATE 54.3 (>32)
[2021-08-30 20:59] LABS: ALBUMIN 2.7 GM/DL (3.2-5.2); BILIRUBIN,DIRECT 0.3 MG/DL (0.0-0.2); BILIRUBIN,TOTAL 0.9 MG/DL (0.2-1.0); FREE T4 1.36 NG/DL (0.76-1.46); MAGNESIUM LEVEL 1.4 MG/DL (1.8-2.4); THYROID STIMULATING HORMONE 4.17 uIU/ML (0.358-3.740); TOTAL PROTEIN 6.5 GM/DL (6.4-8.2)
[2021-08-30] MEDS ORDERED: MAG SULF 1GM/100ML (MAG RUN) 1 GM in IV 1 EA IV ONE (21:05)
[2021-08-30 21:08] LABS: RSV AMPLIFICATION NEGATIVE (NEGATIVE)
[2021-08-30] MEDS ORDERED: MAALOX 30 ML SUSP *UDC PO PRN (21:50)
[2021-08-30] MEDS ORDERED: MOM 30ML SUSPENSION UDC PO PRN (21:50)
[2021-08-30 22:35] VITALS: BP 127/75
[2021-08-30] MEDS ORDERED: NS 1,000 ML IV SCH (22:50)
[2021-08-30 23:00] VITALS: BP 117/68
[2021-08-30 23:30] VITALS: BP 138/72
[2021-08-31] VITALS (33 sets, daily range): BP systolic 79–157; BP diastolic 47–86
[2021-08-31 04:58] LABS: BASO % 0.9 % (0.0-1.0); EOS # 0.1 10^3/uL (0.0-0.5); EOS % 2.7 % (0.0-3.0); HEMATOCRIT 32.9 % (36.0-47.0); HEMOGLOBIN 11.2 g/dl (12.0-15.5); LYMPH # 0.9 10^3/uL (1.5-5.0); MEAN CORPUSCULAR HEMOGLOBIN 36.5 pg (27.0-33.0); MEAN CORPUSCULAR VOLUME 107.2 fl (80.0-96.0); MONO # 0.3 10^3/uL (0.0-0.8); MONO % 9.9 % (2.0-8.0); NEUTROPHILS % 60.2 % (36.0-66.0); PLATELET COUNT, AUTOMATED 114 10^3/uL (150-450); RED BLOOD COUNT 3.07 10^6/uL (4.00-5.40); WHITE BLOOD COUNT 3.3 10^3/uL (4.0-10.0)
[2021-08-31 05:07] LABS: INR 1.09; PROTHROMBIN TIME 14.5 SECONDS (12.7-14.5)
[2021-08-31] MEDS ORDERED: FURO20TA2 PO (05:10)
[2021-08-31] MEDS ORDERED: HOME MED LIST COMPLETE! XX SCH (05:10)
[2021-08-31] MEDS ORDERED: CETI10TA PO (05:10)
[2021-08-31] MEDS ORDERED: ATEN25TA PO (05:10)
[2021-08-31] MEDS ORDERED: ALPR0.25 PO (05:10)
[2021-08-31] MEDS ORDERED: FERR1TAB8 PO (05:10)
[2021-08-31 05:20] LABS: ALBUMIN 2.2 GM/DL (3.2-5.2); ALT/SGPT 11 U/L (12-78); BILIRUBIN,TOTAL 0.8 MG/DL (0.2-1.0); BLOOD UREA NITROGEN 15 MG/DL (7-18); CALCIUM LEVEL 8.6 MG/DL (8.8-10.2); CARBON DIOXIDE LEVEL 28 MEQ/L (21-32); CHLORIDE LEVEL 107 MEQ/L (98-107); CREATININE FOR GFR 0.84 MG/DL (0.55-1.30); GLOMERULAR FILTRATION RATE > 60.0 (>32); GLUCOSE, FASTING 71 MG/DL (70-100); MAGNESIUM LEVEL 1.8 MG/DL (1.8-2.4); POTASSIUM SERUM 3.3 MEQ/L (3.5-5.1); SODIUM LEVEL 142 MEQ/L (136-145); TOTAL PROTEIN 5.4 GM/DL (6.4-8.2)
[2021-08-31] MEDS ORDERED: D5W/LR 1,000 ML IV SCH (06:00)
[2021-08-31] MEDS: atenoloL 25 MG TAB PO SCH ×2 (09:00→21:00)
[2021-08-31] MEDS: KCL 10MEQ/100ML SWI (KRUN) 10 MEQ in IV 1 EA IV SCH ×2 (09:12→10:15)
[2021-08-31] MEDS ORDERED: ISOVUE-300 61% 50ML VIAL As Ordered ONE (15:28)
[2021-08-31] MEDS ORDERED: LIDOCAINE 1% SDV 30ML VIAL As Ordered ONE (15:28)
[2021-08-31] MEDS ORDERED: MUPIROCIN 2% OINT 22 GM TUBE As Ordered ONE (15:28)
[2021-08-31] MEDS ORDERED: VANCOMYCIN 1000MG/20ML VIAL As Ordered ONE (15:28)
[2021-08-31] MEDS ORDERED: ceFAZolin 2 GM/D5W 50 ML IV BAG (J0690 PER 500MG) As Ordered ONE (15:46)
[2021-08-31] MEDS ORDERED: ceFAZolin SOD 2 GM in IV 1 EA IV ONE (16:00)
[2021-08-31] MEDS ORDERED: propofoL 200 MG/20 ML VIAL As Ordered ONE (16:01)
[2021-08-31] MEDS ORDERED: fentaNYL 100 MCG/2 ML INJECTION As Ordered ONE (16:01)
[2021-08-31] MEDS ORDERED: MIDAZOLAM INJ 2MG/2ML VIAL (J2250 PER 1MG) As Ordered ONE (16:01)
[2021-08-31] MEDS ORDERED: ePHEDrine SULFATE 25 MG/5 ML(5MG/ML) SYRINGE As Ordered ONE (17:16)
[2021-08-31] MEDS ORDERED: PHENYLephrine 500MCG 5ML (100MCG/ML) SYRINGE As Ordered ONE (17:16)
[2021-08-31] MEDS ORDERED: ONDANSETRON 4MG/2ML VIAL As Ordered ONE (17:34)
[2021-08-31] MEDS ORDERED: LR 1,000 ML IV SCH (17:45)
[2021-08-31] MEDS ORDERED: fentaNYL 100 MCG/2 ML INJECTION IV PRN (17:45)
[2021-08-31] MEDS ORDERED: ONDANSETRON 4MG/2ML VIAL IV PRN (17:45)
[2021-08-31] MEDS: ASCORBIC ACID 250 MG TAB PO SCH (20:57)
[2021-08-31] MEDS ORDERED: NS 500 ML IV ONE (21:20)
[2021-08-31] MEDS: ACETAMINOPHEN TAB 650MG DOSE (2X325MG) PO PRN (23:16)
[2021-09-01] VITALS (29 sets, daily range): BP systolic 74–132; BP diastolic 33–82; O2SAT 87–95
[2021-09-01 00:43] LABS: BASO % 0.7 % (0.0-1.0); EOS # 0.1 10^3/uL (0.0-0.5); EOS % 1.6 % (0.0-3.0); HEMATOCRIT 32.2 % (36.0-47.0); HEMOGLOBIN 10.8 g/dl (12.0-15.5); LYMPH # 0.8 10^3/uL (1.5-5.0); LYMPH % 13.6 % (24.0-44.0); MEAN CORPUSCULAR HEMOGLOBIN 35.9 pg (27.0-33.0); MEAN CORPUSCULAR HGB CONC 33.5 g/dl (32.0-36.5); MONO # 0.5 10^3/uL (0.0-0.8); MONO % 9.3 % (2.0-8.0); NEUTROPHILS # 4.1 10^3/uL (1.5-8.5); NEUTROPHILS % 74.4 % (36.0-66.0); PLATELET COUNT, AUTOMATED 112 10^3/uL (150-450); RED BLOOD COUNT 3.01 10^6/uL (4.00-5.40); WHITE BLOOD COUNT 5.5 10^3/uL (4.0-10.0)
[2021-09-01 00:58] LABS: ALBUMIN 2.1 GM/DL (3.2-5.2); BILIRUBIN,TOTAL 0.4 MG/DL (0.2-1.0); CREATININE FOR GFR 0.98 MG/DL (0.55-1.30); GLOMERULAR FILTRATION RATE 57.6 (>32); POTASSIUM SERUM 3.6 MEQ/L (3.5-5.1); TOTAL PROTEIN 5.4 GM/DL (6.4-8.2)
[2021-09-01] MEDS ORDERED: NS 500 ML IV ONE (02:10)
[2021-09-01 04:54] LABS: BASO % 0.5 % (0.0-1.0); EOS # 0.1 10^3/uL (0.0-0.5); EOS % 1.8 % (0.0-3.0); HEMATOCRIT 31.8 % (36.0-47.0); HEMOGLOBIN 10.5 g/dl (12.0-15.5); LYMPH # 0.8 10^3/uL (1.5-5.0); LYMPH % 17.6 % (24.0-44.0); MEAN CORPUSCULAR HEMOGLOBIN 35.7 pg (27.0-33.0); MEAN CORPUSCULAR VOLUME 108.2 fl (80.0-96.0); MONO # 0.4 10^3/uL (0.0-0.8); NEUTROPHILS # 3.1 10^3/uL (1.5-8.5); NEUTROPHILS % 70.6 % (36.0-66.0); PLATELET COUNT, AUTOMATED 102 10^3/uL (150-450); RED BLOOD COUNT 2.94 10^6/uL (4.00-5.40); WHITE BLOOD COUNT 4.4 10^3/uL (4.0-10.0)
[2021-09-01 05:18] LABS: ALT/SGPT 7 U/L (12-78); BILIRUBIN,TOTAL 0.4 MG/DL (0.2-1.0); BLOOD UREA NITROGEN 13 MG/DL (7-18); CALCIUM LEVEL 7.9 MG/DL (8.8-10.2); CARBON DIOXIDE LEVEL 29 MEQ/L (21-32); CHLORIDE LEVEL 104 MEQ/L (98-107); CREATININE FOR GFR 0.94 MG/DL (0.55-1.30); GLOMERULAR FILTRATION RATE > 60.0 (>32); GLUCOSE, FASTING 98 MG/DL (70-100); MAGNESIUM LEVEL 1.4 MG/DL (1.8-2.4); POTASSIUM SERUM 3.7 MEQ/L (3.5-5.1); SODIUM LEVEL 137 MEQ/L (136-145); TOTAL PROTEIN 5.2 GM/DL (6.4-8.2)
[2021-09-01] MEDS: MAG SULF 1GM/100ML (MAG RUN) 1 GM in IV 1 EA IV SCH ×2 (06:43→09:21)
[2021-09-01] MEDS ORDERED: MAGNESIUM OXIDE 400MG TAB (MAG-OX) PO SCH (09:00)
[2021-09-01] MEDS: MIDODRINE 5 MG TAB PO SCH ×3 (09:20→15:41)
[2021-09-01] MEDS: ASCORBIC ACID 250 MG TAB PO SCH ×2 (09:21→21:23)
[2021-09-01] MEDS: atenoloL 25 MG TAB PO SCH ×2 (09:21→21:00)
[2021-09-01] MEDS ORDERED: MAG SULF 1GM/100ML (MAG RUN) 1 GM in IV 1 EA IV ONE (10:00)
[2021-09-01] MEDS ORDERED: POTASSIUM CHLORIDE 10MEQ SR TABLET PO ONE (10:00)
[2021-09-01] MEDS: FUROSEMIDE injection 250 MG in D5W 225 ML IV SCH (15:42)
[2021-09-01] MEDS ORDERED: DIGOXIN 0.25 MG TAB PO ONE (17:00)
[2021-09-01] MEDS ORDERED: diphenhydrAMINE 50MG CAP PO PRN (18:45)
[2021-09-01] MEDS ORDERED: MIDODRINE 5 MG TAB PO ONE (21:15)
[2021-09-01] MEDS: APIXABAN 2.5 MG TAB (ELIQUIS) PO SCH (21:23)
[2021-09-02] VITALS (13 sets, daily range): BP systolic 82–136; BP diastolic 44–83; O2SAT 94–100
[2021-09-02] MEDS ORDERED: MIDODRINE 5 MG TAB PO SCH (08:00)
[2021-09-02] MEDS ORDERED: ATENOLOL 12.5MG PER 1/2 TABLET PO ONE (09:00)
[2021-09-02] MEDS ORDERED: atenoloL 25 MG TAB PO SCH (09:00)
[2021-09-02] MEDS: DIGOXIN 0.125 MG TAB PO SCH (09:47)
[2021-09-02] MEDS: APIXABAN 2.5 MG TAB (ELIQUIS) PO SCH ×2 (09:47→20:47)
[2021-09-02] MEDS: MIDODRINE 5 MG TAB PO SCH ×2 (09:47→12:59)
[2021-09-02] MEDS: ACETAMINOPHEN TAB 650MG DOSE (2X325MG) PO PRN ×3 (09:47→20:47)
[2021-09-02] MEDS ORDERED: CETIRIZINE (ZyrTEC) 10 MG TAB PO PRN (09:50)
[2021-09-02] MEDS ORDERED: FUROSEMIDE injection 250 MG in D5W 225 ML IV SCH (10:20)
[2021-09-02] MEDS ORDERED: metOLazone 5 MG TAB PO ONE (14:15)
[2021-09-02 15:49] LABS: CALCIUM LEVEL 8.9 MG/DL (8.8-10.2); CREATININE FOR GFR 1.03 MG/DL (0.55-1.30); GLOMERULAR FILTRATION RATE 54.3 (>32); POTASSIUM SERUM 5.1 MEQ/L (3.5-5.1)
[2021-09-02] MEDS: FUROSEMIDE injection 250 MG in D5W 225 ML IV SCH (16:09)
[2021-09-02] MEDS ORDERED: MIDODRINE 5 MG TAB PO ONE ×2 (17:00→21:00)
[2021-09-02] MEDS: MAGNESIUM OXIDE 400MG TAB (MAG-OX) PO SCH (20:47)
[2021-09-02] MEDS: POTASSIUM CHLORIDE 10MEQ SR TABLET PO SCH (21:00)
[2021-09-02] MEDS ORDERED: ATENOLOL 12.5MG PER 1/2 TABLET PO SCH (21:00)
[2021-09-03] VITALS (11 sets, daily range): BP systolic 76–116; BP diastolic 48–78; O2SAT 96–98
[2021-09-03 06:37] LABS: CALCIUM LEVEL 8.8 MG/DL (8.8-10.2); CREATININE FOR GFR 0.99 MG/DL (0.55-1.30); GLOMERULAR FILTRATION RATE 56.9 (>32); POTASSIUM SERUM 4.7 MEQ/L (3.5-5.1)
[2021-09-03] MEDS: MIDODRINE 5 MG TAB PO SCH ×3 (08:37→16:49)
[2021-09-03] MEDS: MAGNESIUM OXIDE 400MG TAB (MAG-OX) PO SCH ×2 (08:38→20:18)
[2021-09-03] MEDS: DIGOXIN 0.125 MG TAB PO SCH (08:38)
[2021-09-03] MEDS: POTASSIUM CHLORIDE 10MEQ SR TABLET PO SCH ×2 (08:38→20:18)
[2021-09-03] MEDS: APIXABAN 2.5 MG TAB (ELIQUIS) PO SCH ×2 (08:38→20:18)
[2021-09-03] MEDS ORDERED: FUROSEMIDE injection 250 MG in D5W 225 ML IV SCH (10:15)
[2021-09-03] MEDS: FUROSEMIDE injection 250 MG in D5W 225 ML IV SCH (11:10)
[2021-09-03] MEDS ORDERED: MIDODRINE 5 MG TAB PO ONE (20:30)
[2021-09-04] VITALS (7 sets, daily range): BP systolic 107–138; BP diastolic 66–73; O2SAT 94–97
[2021-09-04 06:48] LABS: CREATININE FOR GFR 1.08 MG/DL (0.55-1.30); GLOMERULAR FILTRATION RATE 51.5 (>32); MAGNESIUM LEVEL 1.9 MG/DL (1.8-2.4); POTASSIUM SERUM 5.1 MEQ/L (3.5-5.1)
[2021-09-04] MEDS: FUROSEMIDE 20MG/2ML VIAL (J1940) IV SCH ×2 (08:45→09:00)
[2021-09-04] MEDS: OMEPRAZOLE 20MG CAP PO SCH (08:45)
[2021-09-04] MEDS: APIXABAN 2.5 MG TAB (ELIQUIS) PO SCH ×2 (08:47→20:13)
[2021-09-04] MEDS: POTASSIUM CHLORIDE 10MEQ SR TABLET PO SCH (08:47)
[2021-09-04] MEDS: LACTOBACILLUS ACIDOPHILUS CAP (BACID) PO SCH ×2 (08:47→18:16)
[2021-09-04] MEDS: MAGNESIUM OXIDE 400MG TAB (MAG-OX) PO SCH ×2 (08:47→20:13)
[2021-09-04] MEDS: MIDODRINE 5 MG TAB PO SCH ×3 (08:48→16:00)
[2021-09-04] MEDS: DIGOXIN 0.125 MG TAB PO SCH (08:48)
[2021-09-04] MEDS: FERROUS SULFATE 325MG TAB PO SCH (08:48)
[2021-09-04] MEDS: LEVOTHYROXINE 50MCG TABLET (0.05MG) PO SCH (08:54)
[2021-09-04] MEDS ORDERED: POTASSIUM CHLORIDE 10MEQ SR TABLET PO SCH (09:00)
[2021-09-04] MEDS ORDERED: FUROSEMIDE 20MG/2ML VIAL (J1940) IV SCH (17:40)
[2021-09-04] MEDS ORDERED: ATENOLOL 12.5MG PER 1/2 TABLET PO SCH (21:00)
[2021-09-05] MEDS: LEVOTHYROXINE 50MCG TABLET (0.05MG) PO SCH (05:29)
[2021-09-05 05:30] VITALS: BP 111/61
[2021-09-05 06:02] LABS: HEMATOCRIT 36.2 % (36.0-47.0); MEAN CORPUSCULAR HEMOGLOBIN 34.8 pg (27.0-33.0); MEAN CORPUSCULAR HGB CONC 33.1 g/dl (32.0-36.5); MEAN CORPUSCULAR VOLUME 104.9 fl (80.0-96.0); PLATELET COUNT, AUTOMATED 152 10^3/uL (150-450); RED BLOOD COUNT 3.45 10^6/uL (4.00-5.40); WHITE BLOOD COUNT 4.2 10^3/uL (4.0-10.0)
[2021-09-05 06:27] LABS: CREATININE FOR GFR 1.12 MG/DL (0.55-1.30); GLOMERULAR FILTRATION RATE 49.3 (>32); MAGNESIUM LEVEL 1.8 MG/DL (1.8-2.4); POTASSIUM SERUM 4.2 MEQ/L (3.5-5.1)
[2021-09-05] MEDS ORDERED: FURO20TA2 PO (08:04)
[2021-09-05] MEDS ORDERED: ATEN25TA PO (08:04)
[2021-09-05] MEDS ORDERED: DIGO0.123 PO (08:04)
[2021-09-05] MEDS ORDERED: MAGN400T2 PO (08:04)
[2021-09-05] MEDS: FERROUS SULFATE 325MG TAB PO SCH (08:55)
[2021-09-05] MEDS: OMEPRAZOLE 20MG CAP PO SCH (08:56)
[2021-09-05] MEDS: LACTOBACILLUS ACIDOPHILUS CAP (BACID) PO SCH (08:56)
[2021-09-05] MEDS: MAGNESIUM OXIDE 400MG TAB (MAG-OX) PO SCH (08:56)
[2021-09-05] MEDS: APIXABAN 2.5 MG TAB (ELIQUIS) PO SCH (08:56)
[2021-09-05 08:57] VITALS: BP 119/66
[2021-09-05] MEDS: DIGOXIN 0.125 MG TAB PO SCH (08:57)
[2021-09-05 09:00] VITALS: O2SAT 96
[2021-09-05] MEDS ORDERED: FUROSEMIDE 20 MG TAB PO SCH (09:00)
[2021-09-05] MEDS ORDERED: FUROSEMIDE 20MG/2ML VIAL (J1940) IV SCH (09:00)
== END 2021-09-05 11:43 | disposition home or self-care (01) | DRG 242 ==
LOC: M ED 18:52 → M ED INP 22:21 → ENRESERV 22:31 → M ICU 22:37 → M MSPAV 09-01 15:50
PROVIDERS: ADMIT Family Medicine; ATTEND Internal Medicine
PROC: 02H63JZ Insertion of Pacemaker Lead into Right Atrium, Percutaneous Approach (ICD-10-PCS; 2021-08-31)
PROC: 0JH604Z Insertion of Pacemaker, Single Chamber into Chest Subcutaneous Tissue and Fascia, Open Approach (ICD-10-PCS; principal; 2021-08-31 16:00)
DX: I49.5 Sick sinus syndrome (principal); I50.33 Acute on chronic diastolic (congestive) heart failure; I48.20 Chronic atrial fibrillation, unspecified; E03.9 Hypothyroidism, unspecified; E83.42 Hypomagnesemia; F41.9 Anxiety disorder, unspecified; I27.20 Pulmonary hypertension, unspecified; I11.0 Hypertensive heart disease with heart failure; E78.5 Hyperlipidemia, unspecified; E87.6 Hypokalemia; I36.0 Nonrheumatic tricuspid (valve) stenosis; Z79.899 Other long term (current) drug therapy; Z88.5 Allergy status to narcotic agent; Z88.8 Allergy status to other drugs, medicaments and biological substances; Z96.651 Presence of right artificial knee joint; Z96.611 Presence of right artificial shoulder joint; M54.59 Other low back pain

== ENCOUNTER → 2021-12-07 | Outpatient (CLI) | payer MEDICARE, OTHER ==
[~2021-12-07] MED LIST changes: +ALPR0.25 PO; +CETI10TA PO; +DIGO0.123 PO
[2021-12-07 16:49] LABS: BASO # 0.1 10^3/uL (0.0-0.2); BASO % 1.5 % (0.0-1.0); EOS # 0.1 10^3/uL (0.0-0.5); EOS % 2.7 % (0.0-3.0); HEMATOCRIT 39.9 % (36.0-47.0); HEMOGLOBIN 13.2 g/dl (12.0-15.5); LYMPH # 1.1 10^3/uL (1.5-5.0); LYMPH % 32.7 % (24.0-44.0); MEAN CORPUSCULAR HEMOGLOBIN 35.7 pg (27.0-33.0); MEAN CORPUSCULAR HGB CONC 33.1 g/dl (32.0-36.5); MEAN CORPUSCULAR VOLUME 107.8 fl (80.0-96.0); MONO # 0.3 10^3/uL (0.0-0.8); MONO % 8.7 % (2.0-8.0); NEUTROPHILS # 1.8 10^3/uL (1.5-8.5); NEUTROPHILS % 54.1 % (36.0-66.0); PLATELET COUNT, AUTOMATED 142 10^3/uL (150-450); WHITE BLOOD COUNT 3.3 10^3/uL (4.0-10.0)
[2021-12-07 17:33] LABS: PERCENT SATURATION 35.5 % (13.2-45.0)
== END ==
LOC: M WUC 13:08
PROVIDERS: ATTEND Family Medicine
DX: D64.9 Anemia, unspecified (principal)

== ENCOUNTER → 2021-12-27 | Outpatient (CLI) | payer MEDICARE, OTHER ==
[~2021-12-27] VITALS: Ht 149.9 cm; Wt 51.8 kg
[2021-12-27 10:34] VITALS: BP 141/60
== END ==
LOC: M PAL 10:12
PROVIDERS: ATTEND Nurse Practitioner Adult Health
DX: M54.59 Other low back pain (principal); R63.4 Abnormal weight loss; G47.00 Insomnia, unspecified; I48.91 Unspecified atrial fibrillation; I10 Essential (primary) hypertension; R60.9 Edema, unspecified; R63.0 Anorexia; Z79.899 Other long term (current) drug therapy; Z79.1 Long term (current) use of non-steroidal anti-inflammatories (NSAID); Z88.1 Allergy status to other antibiotic agents; Z88.5 Allergy status to narcotic agent; Z88.8 Allergy status to other drugs, medicaments and biological substances; Z95.0 Presence of cardiac pacemaker; Z86.16 Personal history of COVID-19; Z85.3 Personal history of malignant neoplasm of breast; Z79.01 Long term (current) use of anticoagulants

== ENCOUNTER → 2022-01-14 | Outpatient (REF) | payer MEDICARE, OTHER | LOC: M SFHCPLAZ 16:42 | PROVIDERS: ATTEND Internal Medicine Infectious Disease | DX: A49.8 Other bacterial infections of unspecified site (principal) ==

== ENCOUNTER → 2022-01-17 | Outpatient (CLI) | payer MEDICARE, OTHER | LOC: M LABSMTC 11:48 | PROVIDERS: ATTEND Anesthesiology | DX: Z01.812 Encounter for preprocedural laboratory examination (principal); Z11.52 Encounter for screening for COVID-19 ==

== ENCOUNTER → 2022-01-22 | Outpatient (CLI) | payer MEDICARE, OTHER ==
[~2022-01-22] MED LIST changes: +BUPIVACAINE HCL 0.25% 10ML VIAL As Ordered ONE; +BUPIVACAINE HCL 0.25% 30ML VIAL As Ordered ONE; +TRIAMCINOLONE ACETONIDE SUSP 40 MG/ML VIAL (J3301) As Ordered ONE
== END ==
LOC: M PAIN 10:00
PROVIDERS: ATTEND Anesthesiology
DX: M79.18 Myalgia, other site (principal); G89.29 Other chronic pain; G47.30 Sleep apnea, unspecified; I10 Essential (primary) hypertension; Z95.0 Presence of cardiac pacemaker; Z86.59 Personal history of other mental and behavioral disorders; Z96.611 Presence of right artificial shoulder joint; Z96.651 Presence of right artificial knee joint; Z88.5 Allergy status to narcotic agent; Z88.8 Allergy status to other drugs, medicaments and biological substances; Z79.899 Other long term (current) drug therapy
CPT/HCPCS: 20552; J3301

== ENCOUNTER → 2022-02-12 | Outpatient (CLI) | payer MEDICARE, OTHER ==
[~2022-02-12] MED LIST changes: -BUPIVACAINE HCL 0.25% 10ML VIAL As Ordered ONE; -BUPIVACAINE HCL 0.25% 30ML VIAL As Ordered ONE; -TRIAMCINOLONE ACETONIDE SUSP 40 MG/ML VIAL (J3301) As Ordered ONE
== END ==
LOC: M PAIN 13:45
PROVIDERS: ATTEND Nurse Practitioner Family
DX: M54.50 Low back pain, unspecified (principal); G89.29 Other chronic pain; I10 Essential (primary) hypertension; Z86.59 Personal history of other mental and behavioral disorders; Z96.651 Presence of right artificial knee joint; Z95.0 Presence of cardiac pacemaker; Z88.5 Allergy status to narcotic agent; Z88.8 Allergy status to other drugs, medicaments and biological substances; Z79.899 Other long term (current) drug therapy

== ENCOUNTER → 2022-05-02 | Outpatient (CLI) | payer MEDICARE, OTHER | LOC: M PAIN 10:30 | PROVIDERS: ATTEND Nurse Practitioner Family | DX: M46.1 Sacroiliitis, not elsewhere classified (principal); G89.29 Other chronic pain; I10 Essential (primary) hypertension; Z86.59 Personal history of other mental and behavioral disorders; Z88.5 Allergy status to narcotic agent; Z88.8 Allergy status to other drugs, medicaments and biological substances; Z79.899 Other long term (current) drug therapy ==

== ENCOUNTER → 2022-06-28 | Outpatient (CLI) | payer MEDICARE, OTHER ==
[2022-06-28 17:37] LABS: BASO % 0.8 % (0.0-1.0); HEMOGLOBIN 10.5 g/dl (12.0-15.5); LYMPH % 24.4 % (24.0-44.0); MEAN CORPUSCULAR HGB CONC 32.8 g/dl (32.0-36.5); MONO # 0.3 10^3/uL (0.0-0.8); MONO % 8.5 % (2.0-8.0); NEUTROPHILS # 2.6 10^3/uL (1.5-8.5); PLATELET COUNT, AUTOMATED 116 10^3/uL (150-450); RED BLOOD COUNT 2.69 10^6/uL (4.00-5.40)
[2022-06-28 17:59] LABS: THYROID STIMULATING HORMONE 2.459 uIU/ML (0.55-4.78)
[2022-06-28 18:01] LABS: ALBUMIN 3.1 G/DL (3.2-5.2); ALKALINE PHOSPHATASE 56 U/L (46-116); ALT/SGPT < 9 U/L (7.0-40); AST/SGOT 17 U/L (<34); BILIRUBIN,TOTAL 1.3 MG/DL (0.3-1.2); BLOOD UREA NITROGEN 23 MG/DL (9-23); CALCIUM LEVEL 8.3 MG/DL (8.3-10.6); CARBON DIOXIDE LEVEL 30 MMOL/L (20-31); CHLORIDE LEVEL 101 MMOL/L (98-107); FREE T4 1.44 NG/DL (0.89-1.76); GLOMERULAR FILTRATION RATE 56.1 (>32); GLUCOSE, FASTING 94 MG/DL (74-106); IRON (FE) 112 UG/DL (50-170); POTASSIUM SERUM 5.1 MMOL/L (3.5-5.1); SODIUM LEVEL 136 MMOL/L (136-145); TOTAL PROTEIN 5.8 G/DL (5.7-8.2)
[2022-06-28 18:02] LABS: PERCENT SATURATION 46.3 % (13.2-45.0); TOTAL IRON BINDING CAPACITY 242 UG/DL (250-425)
[2022-06-28 19:10] LABS: SCHISTOCYTES 1+
[2022-06-28 19:12] LABS: PLATELET ESTIMATE DECREASED (NORMAL)
== END ==
LOC: M WUC 13:26
PROVIDERS: ATTEND Family Medicine
DX: E03.9 Hypothyroidism, unspecified (principal); D64.9 Anemia, unspecified; I10 Essential (primary) hypertension

== ENCOUNTER → 2022-10-01 | Outpatient (CLI) | payer MEDICARE, OTHER ==
[~2022-10-01] MED LIST changes: +ISOVUE-M 300 61% 15ML VIAL As Ordered ONE; -K-TA10TA2 PO; +LIDOCAINE 1% SDV 30ML VIAL As Ordered ONE; +POTA-165 PO; +TRIAMCINOLONE ACETONIDE SUSP 40MG/ML 1ML VIAL As Ordered ONE
== END ==
LOC: M PAIN 13:00
PROVIDERS: ATTEND Anesthesiology
DX: M46.1 Sacroiliitis, not elsewhere classified (principal); M79.10 Myalgia, unspecified site; M54.50 Low back pain, unspecified; G89.29 Other chronic pain; I48.91 Unspecified atrial fibrillation; F41.9 Anxiety disorder, unspecified; I10 Essential (primary) hypertension; Z79.891 Long term (current) use of opiate analgesic; Z79.890 Hormone replacement therapy; Z79.899 Other long term (current) drug therapy; Z88.5 Allergy status to narcotic agent; Z88.8 Allergy status to other drugs, medicaments and biological substances; Z53.09 Procedure and treatment not carried out because of other contraindication

== ENCOUNTER 2023-01-07 18:51 | Observation (INO) | payer MEDICARE, OTHER ==
[~2023-01-07] VITALS: Ht 149.9 cm; Wt 49.3 kg
[~2023-01-07 18:51] MED LIST changes: -CEFD300C41 PO; +CEFD300C42 PO; -ISOVUE-M 300 61% 15ML VIAL As Ordered ONE; -LIDOCAINE 1% SDV 30ML VIAL As Ordered ONE; -TRIAMCINOLONE ACETONIDE SUSP 40MG/ML 1ML VIAL As Ordered ONE
[2023-01-07 19:39] LABS: BASO % 0.8 % (0.0-1.0); EOS # 0.1 10^3/uL (0.0-0.5); EOS % 1.4 % (0.0-3.0); HEMOGLOBIN 11.3 g/dl (12.0-15.5); LYMPH # 0.5 10^3/uL (1.5-5.0); LYMPH % 14.7 % (24.0-44.0); MEAN CORPUSCULAR HEMOGLOBIN 37.8 pg (27.0-33.0); MEAN CORPUSCULAR HGB CONC 34.2 g/dl (32.0-36.5); MEAN CORPUSCULAR VOLUME 110.4 fl (80.0-96.0); MONO # 0.3 10^3/uL (0.0-0.8); MONO % 7.5 % (2.0-8.0); NEUTROPHILS # 2.7 10^3/uL (1.5-8.5); NEUTROPHILS % 75.3 % (36.0-66.0); PLATELET COUNT, AUTOMATED 107 10^3/uL (150-450); RED BLOOD COUNT 2.99 10^6/uL (4.00-5.40); WHITE BLOOD COUNT 3.6 10^3/uL (4.0-10.0)
[2023-01-07] MEDS ORDERED: ISOVUE-370 76% 100ML VIAL As Ordered ONE (19:56)
[2023-01-07 20:06] LABS: CK-MB VALUE MASS < 1.0 NG/ML (<3.6)
[2023-01-07 20:07] LABS: BLOOD UREA NITROGEN 18 MG/DL (9-23); CALCIUM LEVEL 9.3 MG/DL (8.3-10.6); CARBON DIOXIDE LEVEL 26 MMOL/L (20-31); CHLORIDE LEVEL 98 MMOL/L (98-107); CPK CREATINE PHOSPHOKINASE 34 U/L (34-145); CREATININE FOR GFR 0.76 MG/DL (0.55-1.30); GLOMERULAR FILTRATION RATE > 60.0 (>32); GLUCOSE, FASTING 85 MG/DL (74-106); MB/CK RELATIVE INDEX 2.94 (< OR =4); POTASSIUM SERUM 4.4 MMOL/L (3.5-5.1); SODIUM LEVEL 136 MMOL/L (136-145)
[2023-01-07 20:26] VITALS: BP 173/72; TEMP 97.7; O2SAT 96
[2023-01-07] MEDS ORDERED: AZITHROMYCIN 250MG TABLET PO ONE (21:05)
[2023-01-07] MEDS ORDERED: cefTRIAXone SOD 1 GM in D5W MINI-BAG PLUS 50 ML IV ONE (21:05)
[2023-01-07 21:33] LABS: PROCALCITONIN <0.04 ng/ml
[2023-01-07] MEDS ORDERED: MED REC IN PROGRESS XX SCH (22:10)
[2023-01-07] MEDS ORDERED: LIDO1PAD TOP (22:38)
[2023-01-07] MEDS ORDERED: OMEG100011 PO (22:39)
[2023-01-07] MEDS ORDERED: HOME MED LIST COMPLETE! XX SCH (22:40)
[2023-01-07] MEDS ORDERED: DIGO0.123 PO (22:51)
[2023-01-07] MEDS ORDERED: FURO20TA2 PO (22:52)
[2023-01-07] MEDS ORDERED: LIDOCAINE 5% (LIDODERM) PATCH TOP PRN (23:30)
[2023-01-07] MEDS ORDERED: ACETAMINOPHEN 500 MG TAB PO PRN (23:30)
[2023-01-08] VITALS (8 sets, daily range): BP systolic 82–142; BP diastolic 42–61; TEMP 97.3–98.6; O2SAT 94–99
[2023-01-08] MEDS: APIXABAN 2.5 MG TAB (ELIQUIS) PO SCH ×3 (00:02→19:36)
[2023-01-08] MEDS: ALPRAZolam 0.25 MG TAB PO PRN (01:34)
[2023-01-08] MEDS: LEVOTHYROXINE 50MCG TABLET (0.05MG) PO SCH (06:11)
[2023-01-08 08:04] LABS: BASO % 1.1 % (0.0-1.0); EOS # 0.1 10^3/uL (0.0-0.5); EOS % 1.7 % (0.0-3.0); HEMATOCRIT 30.6 % (36.0-47.0); HEMOGLOBIN 10.5 g/dl (12.0-15.5); LYMPH # 0.9 10^3/uL (1.5-5.0); LYMPH % 23.8 % (24.0-44.0); MEAN CORPUSCULAR HEMOGLOBIN 37.8 pg (27.0-33.0); MEAN CORPUSCULAR HGB CONC 34.3 g/dl (32.0-36.5); MEAN CORPUSCULAR VOLUME 110.1 fl (80.0-96.0); MONO # 0.4 10^3/uL (0.0-0.8); MONO % 10.8 % (2.0-8.0); NEUTROPHILS # 2.3 10^3/uL (1.5-8.5); NEUTROPHILS % 62.3 % (36.0-66.0); PLATELET COUNT, AUTOMATED 110 10^3/uL (150-450); RED BLOOD COUNT 2.78 10^6/uL (4.00-5.40); WHITE BLOOD COUNT 3.6 10^3/uL (4.0-10.0)
[2023-01-08 08:30] LABS: BLOOD UREA NITROGEN 18 MG/DL (9-23); CALCIUM LEVEL 8.8 MG/DL (8.3-10.6); CARBON DIOXIDE LEVEL 31 MMOL/L (20-31); CHLORIDE LEVEL 96 MMOL/L (98-107); CREATININE FOR GFR 0.77 MG/DL (0.55-1.30); GLOMERULAR FILTRATION RATE > 60.0 (>32); GLUCOSE, FASTING 78 MG/DL (74-106); MAGNESIUM LEVEL 1.3 MG/DL (1.8-2.4); SODIUM LEVEL 133 MMOL/L (136-145)
[2023-01-08] MEDS ORDERED: FUROSEMIDE 20 MG TAB PO SCH (09:00)
[2023-01-08] MEDS ORDERED: METOPROLOL TART 12.5 MG PER 1/2 TAB PO SCH (09:00)
[2023-01-08] MEDS: OMEPRAZOLE 20MG CAP PO SCH (09:29)
[2023-01-08] MEDS: TOLTERODINE TARTRATE 2 MG LA CAP (DETROL LA) PO SCH (09:29)
[2023-01-08] MEDS: MAG SULF 1GM/100ML (MAG RUN) 1 GM in IV 1 EA IV SCH ×4 (09:29→14:58)
[2023-01-08] MEDS: DIGOXIN 0.125 MG TAB PO SCH (09:31)
[2023-01-08 13:28] LABS: DIGOXIN LEVEL 1.8 NG/ML (0.8-2.0)
[2023-01-08] MEDS: NS 1,000 ML IV SCH ×2 (14:58→23:39)
[2023-01-09 00:03] VITALS: BP_SYST 104; BP_SYST 96; BP_DIAS 40; BP_DIAS 50
[2023-01-09] MEDS: ALPRAZolam 0.25 MG TAB PO PRN (00:26)
[2023-01-09 03:22] VITALS: BP 100/51; TEMP 98.1; O2SAT 99
[2023-01-09] MEDS: LEVOTHYROXINE 50MCG TABLET (0.05MG) PO SCH (06:09)
[2023-01-09 07:32] LABS: BASO % 0.9 % (0.0-1.0); EOS # 0.1 10^3/uL (0.0-0.5); EOS % 2.6 % (0.0-3.0); HEMATOCRIT 27.4 % (36.0-47.0); HEMOGLOBIN 9.2 g/dl (12.0-15.5); LYMPH # 0.9 10^3/uL (1.5-5.0); LYMPH % 24.6 % (24.0-44.0); MEAN CORPUSCULAR HEMOGLOBIN 38.3 pg (27.0-33.0); MEAN CORPUSCULAR HGB CONC 33.6 g/dl (32.0-36.5); MONO # 0.4 10^3/uL (0.0-0.8); MONO % 10.7 % (2.0-8.0); NEUTROPHILS # 2.1 10^3/uL (1.5-8.5); NEUTROPHILS % 60.6 % (36.0-66.0); PLATELET COUNT, AUTOMATED 103 10^3/uL (150-450); WHITE BLOOD COUNT 3.5 10^3/uL (4.0-10.0)
[2023-01-09 07:33] LABS: MEAN CORPUSCULAR VOLUME 114.2 fl (80.0-96.0)
[2023-01-09 08:00] VITALS: BP 119/56; TEMP 96.5; TEMP 98.8; O2SAT 100
[2023-01-09 08:03] LABS: CALCIUM LEVEL 8.6 MG/DL (8.3-10.6); CREATININE FOR GFR 1.01 MG/DL (0.55-1.30); DIGOXIN LEVEL 1.7 NG/ML (0.8-2.0); GLOMERULAR FILTRATION RATE 55.3 (>32); MAGNESIUM LEVEL 2.3 MG/DL (1.8-2.4)
[2023-01-09 08:22] LABS: PLATELET ESTIMATE DECREASED (NORMAL)
[2023-01-09 08:23] LABS: HYPOCHROMASIA 2+
[2023-01-09] MEDS: DIGOXIN 0.125 MG TAB PO SCH (09:00)
[2023-01-09] MEDS: TOLTERODINE TARTRATE 2 MG LA CAP (DETROL LA) PO SCH (09:23)
[2023-01-09] MEDS: OMEPRAZOLE 20MG CAP PO SCH (09:24)
[2023-01-09] MEDS: APIXABAN 2.5 MG TAB (ELIQUIS) PO SCH (09:25)
[2023-01-09 12:00] VITALS: BP 100/54; TEMP 98.9; O2SAT 98
[2023-01-09 16:00] VITALS: BP 112/52; TEMP 98.4; O2SAT 97
[2023-01-09] MEDS ORDERED: FURO20TA2 PO (17:53)
== END 2023-01-09 18:38 | disposition home or self-care (01) ==
LOC: M ED 18:51 → M ED INP 23:30 → EEVIPCON 23:30 → M PCU 01-08 00:33
PROVIDERS: ADMIT Internal Medicine; ATTEND Internal Medicine
DX: R53.1 Weakness (principal); I48.91 Unspecified atrial fibrillation; I49.5 Sick sinus syndrome; D61.818 Other pancytopenia; J18.9 Pneumonia, unspecified organism; E03.9 Hypothyroidism, unspecified; N32.81 Overactive bladder; Z95.0 Presence of cardiac pacemaker; Z86.73 Personal history of transient ischemic attack (TIA), and cerebral infarction without residual deficits; Z79.01 Long term (current) use of anticoagulants; Z79.899 Other long term (current) drug therapy; Z88.8 Allergy status to other drugs, medicaments and biological substances; Z88.5 Allergy status to narcotic agent
CPT/HCPCS: 36415; 70450; 70496; 70498; 71045; 80047; 80048; 80162; 81001; 82550; 82553; 83735; 84145; 84484; 85025; 85730; 87040; 87486; 87581; 87633; 87798; 92526; 92610; 93005; 93041; 93306; 94760; 96361; 96365; 97110; 97116; 97161; 97165; 97535; 99285; G0378; J0696; J3475; Q9967

== ENCOUNTER → 2023-02-18 | Outpatient (REF) | payer MEDICARE, OTHER ==
[~2023-02-18] MED LIST changes: +CEFD1CAP9 PO; -CEFD300C42 PO; +LIDO1PAD TOP; +OMEG100011 PO
[2023-02-18 16:42] LABS: BLOOD UREA NITROGEN 16 MG/DL (9-23); CALCIUM LEVEL 9.5 MG/DL (8.3-10.6); CARBON DIOXIDE LEVEL 32 MMOL/L (20-31); CHLORIDE LEVEL 99 MMOL/L (98-107); CREATININE FOR GFR 0.82 MG/DL (0.55-1.30); GLOMERULAR FILTRATION RATE > 60.0 (>32); GLUCOSE, FASTING 93 MG/DL (74-106); POTASSIUM SERUM 4.6 MMOL/L (3.5-5.1); SODIUM LEVEL 137 MMOL/L (136-145)
[2023-02-18 16:48] LABS: HEMATOCRIT 34.8 % (36.0-47.0); HEMOGLOBIN 11.6 g/dl (12.0-15.5); MEAN CORPUSCULAR HGB CONC 33.3 g/dl (32.0-36.5); PLATELET COUNT, AUTOMATED 141 10^3/uL (150-450); RED BLOOD COUNT 3.05 10^6/uL (4.00-5.40)
[2023-02-18 16:51] LABS: MEAN CORPUSCULAR VOLUME 114.1 fl (80.0-96.0)
== END ==
LOC: M LABWUC 16:18
PROVIDERS: ATTEND Nurse Practitioner Family
DX: I48.91 Unspecified atrial fibrillation (principal)

== ENCOUNTER → 2023-03-12 | Outpatient (CLI) | payer MEDICARE, OTHER ==
[2023-03-12 18:45] LABS: BASO % 0.7 % (0.0-1.0); EOS # 0.1 10^3/uL (0.0-0.5); EOS % 1.4 % (0.0-3.0); HEMATOCRIT 34.7 % (36.0-47.0); HEMOGLOBIN 11.9 g/dl (12.0-15.5); LYMPH % 22.8 % (24.0-44.0); MEAN CORPUSCULAR HEMOGLOBIN 37.4 pg (27.0-33.0); MEAN CORPUSCULAR HGB CONC 34.3 g/dl (32.0-36.5); MEAN CORPUSCULAR VOLUME 109.1 fl (80.0-96.0); MONO # 0.4 10^3/uL (0.0-0.8); MONO % 9.6 % (2.0-8.0); NEUTROPHILS # 2.8 10^3/uL (1.5-8.5); PLATELET COUNT, AUTOMATED 198 10^3/uL (150-450); RED BLOOD COUNT 3.18 10^6/uL (4.00-5.40); WHITE BLOOD COUNT 4.3 10^3/uL (4.0-10.0)
[2023-03-12 19:29] LABS: ALBUMIN 2.8 G/DL (3.2-5.2); BILIRUBIN,TOTAL 1.3 MG/DL (0.3-1.2); CALCIUM LEVEL 8.5 MG/DL (8.3-10.6); CREATININE FOR GFR 1.04 MG/DL (0.55-1.30); GLOMERULAR FILTRATION RATE 53.5 (>32); POTASSIUM SERUM 4.1 MMOL/L (3.5-5.1); TOTAL PROTEIN 5.9 G/DL (5.7-8.2)
== END ==
LOC: M PLAIMG 15:52
PROVIDERS: ATTEND Nurse Practitioner Family
DX: R05.9 Cough, unspecified (principal); R91.8 Other nonspecific abnormal finding of lung field; Z95.0 Presence of cardiac pacemaker

== ENCOUNTER → 2023-04-01 | Outpatient (CLI) | payer MEDICARE, OTHER | LOC: M WUC 14:33 | PROVIDERS: ATTEND Nurse Practitioner Family | DX: J18.9 Pneumonia, unspecified organism (principal); I50.9 Heart failure, unspecified; J90 Pleural effusion, not elsewhere classified; K44.9 Diaphragmatic hernia without obstruction or gangrene; Z95.0 Presence of cardiac pacemaker; Z96.611 Presence of right artificial shoulder joint ==

== ENCOUNTER 2023-04-02 15:07 | Emergency (ER) | payer MEDICARE, OTHER ==
[~2023-04-02] VITALS: Ht 149.9 cm; Wt 47.4 kg
[2023-04-02 18:10] LABS: BASO % 0.6 % (0.0-1.0); EOS # 0.1 10^3/uL (0.0-0.5); EOS % 1.7 % (0.0-3.0); HEMATOCRIT 29.8 % (36.0-47.0); HEMOGLOBIN 9.9 g/dl (12.0-15.5); LYMPH # 0.7 10^3/uL (1.5-5.0); LYMPH % 12.9 % (24.0-44.0); MEAN CORPUSCULAR HGB CONC 33.2 g/dl (32.0-36.5); MEAN CORPUSCULAR VOLUME 108.4 fl (80.0-96.0); MONO # 0.5 10^3/uL (0.0-0.8); MONO % 9.6 % (2.0-8.0); NEUTROPHILS # 3.9 10^3/uL (1.5-8.5); PLATELET COUNT, AUTOMATED 128 10^3/uL (150-450); RED BLOOD COUNT 2.75 10^6/uL (4.00-5.40); WHITE BLOOD COUNT 5.2 10^3/uL (4.0-10.0)
[2023-04-02 18:56] LABS: BLOOD UREA NITROGEN 13 MG/DL (9-23); CALCIUM LEVEL 8.6 MG/DL (8.3-10.6); CARBON DIOXIDE LEVEL 32 MMOL/L (20-31); CHLORIDE LEVEL 104 MMOL/L (98-107); GLOMERULAR FILTRATION RATE > 60.0 (>32); GLUCOSE, FASTING 79 MG/DL (74-106); POTASSIUM SERUM 5.1 MMOL/L (3.5-5.1); SODIUM LEVEL 139 MMOL/L (136-145)
[2023-04-02 19:38] VITALS: BP 117/59; TEMP 98.1; O2SAT 97
== END 2023-04-02 20:45 | disposition home or self-care (01) ==
LOC: M ED 15:07
DX: R06.02 Shortness of breath (principal); I50.22 Chronic systolic (congestive) heart failure; J90 Pleural effusion, not elsewhere classified; I10 Essential (primary) hypertension; E03.9 Hypothyroidism, unspecified; K58.9 Irritable bowel syndrome, unspecified; Z86.79 Personal history of other diseases of the circulatory system; Z88.8 Allergy status to other drugs, medicaments and biological substances; Z88.5 Allergy status to narcotic agent; Z79.01 Long term (current) use of anticoagulants; Z79.899 Other long term (current) drug therapy; Z79.1 Long term (current) use of non-steroidal anti-inflammatories (NSAID)

== ENCOUNTER → 2023-04-28 | Outpatient (CLI) | payer MEDICARE, OTHER | LOC: M PLAIMG 14:21 | PROVIDERS: ATTEND Pain Medicine Interventional Pain Medicine | DX: M47.817 Spondylosis without myelopathy or radiculopathy, lumbosacral region (principal); M41.9 Scoliosis, unspecified ==

== ENCOUNTER → 2023-05-07 | Outpatient (CLI) | payer MEDICARE, OTHER | LOC: M WUC 12:58 | PROVIDERS: ATTEND Nurse Practitioner Family | DX: J18.9 Pneumonia, unspecified organism (principal) ==

== ENCOUNTER 2023-05-17 15:45 | Emergency (ER) | payer MEDICARE, OTHER ==
[~2023-05-17] VITALS: Ht 147.3 cm; Wt 48.7 kg
[2023-05-17 15:48] VITALS: BP 142/65; TEMP 98.2; O2SAT 96
[2023-05-17] MEDS ORDERED: MAGN400T2 PO (18:26)
[2023-05-17] MEDS ORDERED: POTA1TAB23 PO (18:26)
[2023-05-17] MEDS ORDERED: FURO20TA2 PO (18:26)
[2023-05-17] MEDS ORDERED: HOME MED LIST COMPLETE! XX SCH (18:45)
[2023-05-17 19:23] LABS: BASO % 0.6 % (0.0-1.0); EOS % 0.4 % (0.0-3.0); LYMPH # 1.1 10^3/uL (1.5-5.0); LYMPH % 16.3 % (24.0-44.0); MEAN CORPUSCULAR HEMOGLOBIN 37.2 pg (27.0-33.0); MEAN CORPUSCULAR HGB CONC 34.2 g/dl (32.0-36.5); MEAN CORPUSCULAR VOLUME 108.9 fl (80.0-96.0); MONO # 0.5 10^3/uL (0.0-0.8); MONO % 7.3 % (2.0-8.0); NEUTROPHILS % 75.1 % (36.0-66.0); PLATELET COUNT, AUTOMATED 158 10^3/uL (150-450); RED BLOOD COUNT 3.49 10^6/uL (4.00-5.40); WHITE BLOOD COUNT 6.7 10^3/uL (4.0-10.0)
[2023-05-17 19:37] LABS: INR 1.1; PARTIAL THROMBOPLASTIN TIME 27.7 SECONDS (24.8-34.2); PROTHROMBIN TIME 13.9 SECONDS (12.5-14.5)
[2023-05-17 19:53] LABS: BLOOD UREA NITROGEN 14 MG/DL (9-23); CALCIUM LEVEL 8.3 MG/DL (8.3-10.6); CARBON DIOXIDE LEVEL 31 MMOL/L (20-31); CHLORIDE LEVEL 94 MMOL/L (98-107); CREATININE FOR GFR 0.87 MG/DL (0.55-1.30); GLOMERULAR FILTRATION RATE > 60.0 (>32); GLUCOSE, FASTING 92 MG/DL (74-106); POTASSIUM SERUM 3.6 MMOL/L (3.5-5.1); SODIUM LEVEL 133 MMOL/L (136-145)
== END 2023-05-17 20:42 | disposition home or self-care (01) ==
LOC: M ED 15:45
DX: M79.671 Pain in right foot (principal); I48.91 Unspecified atrial fibrillation; I50.9 Heart failure, unspecified; I10 Essential (primary) hypertension; E03.9 Hypothyroidism, unspecified; M41.9 Scoliosis, unspecified; Z79.01 Long term (current) use of anticoagulants; Z79.899 Other long term (current) drug therapy; Z88.5 Allergy status to narcotic agent; Z88.8 Allergy status to other drugs, medicaments and biological substances

== ENCOUNTER 2023-06-12 18:14 | Emergency (ER) | payer MEDICARE, OTHER ==
[~2023-06-12] VITALS: Ht 149.9 cm; Wt 49.1 kg
[~2023-06-12 18:14] MED LIST changes: +POTA1TAB23 PO
[2023-06-12 19:43] LABS: BASO % 0.7 % (0.0-1.0); EOS % 0.2 % (0.0-3.0); HEMATOCRIT 34.3 % (36.0-47.0); HEMATOCRIT 34.9 % (36.0-47.0); HEMOGLOBIN 12.1 g/dl (12.0-15.5); LYMPH # 0.3 10^3/uL (1.5-5.0); LYMPH % 5.7 % (24.0-44.0); MEAN CORPUSCULAR HEMOGLOBIN 37.1 pg (27.0-33.0); MEAN CORPUSCULAR HEMOGLOBIN 37.9 pg (27.0-33.0); MEAN CORPUSCULAR HGB CONC 34.7 g/dl (32.0-36.5); MEAN CORPUSCULAR HGB CONC 35.3 g/dl (32.0-36.5); MEAN CORPUSCULAR VOLUME 107.1 fl (80.0-96.0); MEAN CORPUSCULAR VOLUME 107.5 fl (80.0-96.0); MONO # 0.5 10^3/uL (0.0-0.8); MONO % 8.3 % (2.0-8.0); NEUTROPHILS # 5.1 10^3/uL (1.5-8.5); NEUTROPHILS % 84.8 % (36.0-66.0); PLATELET COUNT, AUTOMATED 129 10^3/uL (150-450); PLATELET COUNT, AUTOMATED 150 10^3/uL (150-450); RED BLOOD COUNT 3.19 10^6/uL (4.00-5.40); RED BLOOD COUNT 3.26 10^6/uL (4.00-5.40); WHITE BLOOD COUNT 5.9 10^3/uL (4.0-10.0)
[2023-06-12 19:56] LABS: INR 1.07; PARTIAL THROMBOPLASTIN TIME 21.9 SECONDS (24.8-34.2); PROTHROMBIN TIME 13.6 SECONDS (12.5-14.5)
[2023-06-12 20:03] LABS: CK-MB VALUE MASS 2.4 NG/ML (<3.6); ETHYL ALCOHOL (ETHANOL) 0.007 % (0.000-0.010); LIPASE 38 U/L (12-53)
[2023-06-12 20:04] LABS: AMYLASE 76 U/L (30-118)
[2023-06-12 20:05] LABS: ALBUMIN 3.1 G/DL (3.2-5.2); ALKALINE PHOSPHATASE 91 U/L (46-116); ALT/SGPT 17 U/L (7.0-40); AST/SGOT 46 U/L (<34); BILIRUBIN,DIRECT 0.6 MG/DL (<0.4); BILIRUBIN,TOTAL 1.9 MG/DL (0.3-1.2); BLOOD UREA NITROGEN 14 MG/DL (9-23); CALCIUM LEVEL 8.8 MG/DL (8.3-10.6); CARBON DIOXIDE LEVEL 28 MMOL/L (20-31); CHLORIDE LEVEL 97 MMOL/L (98-107); CREATININE FOR GFR 0.67 MG/DL (0.55-1.30); GLOMERULAR FILTRATION RATE > 60.0 (>32); GLUCOSE, FASTING 131 MG/DL (74-106); POTASSIUM SERUM 5.1 MMOL/L (3.5-5.1); SODIUM LEVEL 134 MMOL/L (136-145); TOTAL PROTEIN 6.4 G/DL (5.7-8.2)
[2023-06-12] MEDS: FACTOR XA,INACTIVATED-ZHZO 400 MG in APPROPRIATE DILUENT 40 ML IV ONE (20:05)
[2023-06-12 20:08] LABS: CPK CREATINE PHOSPHOKINASE 138 U/L (34-145); MB/CK RELATIVE INDEX 1.73 (< OR =4)
[2023-06-12] MEDS: FACTOR XA,INACTIVATED-ZHZO 480 MG in APPROPRIATE DILUENT 48 ML IV ONE (20:32)
[2023-06-13] MEDS ORDERED: MORPHINE 2 MG/ML 1ML VIAL As Ordered ONE (02:24)
[2023-06-13 02:27] VITALS: BP 154/84; TEMP 97.8; O2SAT 98
[2023-06-13] MEDS: MORPHINE 2 MG/ML 1ML VIAL IV ONE (02:27)
== END 2023-06-13 02:29 | disposition short-term general hospital (02) ==
LOC: M ED 18:14
DX: S06.5X0A Traumatic subdural hemorrhage without loss of consciousness, initial encounter (principal); W01.198A Fall on same level from slipping, tripping and stumbling with subsequent striking against other object, initial encounter; I44.0 Atrioventricular block, first degree; I45.10 Unspecified right bundle-branch block; I45.81 Long QT syndrome; K58.9 Irritable bowel syndrome, unspecified; E03.9 Hypothyroidism, unspecified; F41.9 Anxiety disorder, unspecified; Z79.01 Long term (current) use of anticoagulants; Y92.009 Unspecified place in unspecified non-institutional (private) residence as the place of occurrence of the external cause; Y93.89 Activity, other specified; Y99.9 Unspecified external cause status; Z79.899 Other long term (current) drug therapy; Z79.891 Long term (current) use of opiate analgesic; Z79.810 Long term (current) use of selective estrogen receptor modulators (SERMs); Z88.5 Allergy status to narcotic agent; Z88.8 Allergy status to other drugs, medicaments and biological substances; Z91.018 Allergy to other foods
CPT/HCPCS: 70450; 71045; 72125; 80048; 80076; 82077; 82150; 82550; 82553; 83605; 83690; 84484; 85025; 85027; 85610; 85730; 86850; 86900; 86901; 93005; 93041; 94760; 96365; 96375; 99291; J7169

== ENCOUNTER → 2023-07-09 | Outpatient (REF) ==
[2023-07-09 10:42] LABS: HEMATOCRIT 28.6 % (36.0-47.0); HEMOGLOBIN 9.2 g/dl (12.0-15.5); MEAN CORPUSCULAR HEMOGLOBIN 34.5 pg (27.0-33.0); MEAN CORPUSCULAR HGB CONC 32.2 g/dl (32.0-36.5); MEAN CORPUSCULAR VOLUME 107.1 fl (80.0-96.0); PLATELET COUNT, AUTOMATED 205 10^3/uL (150-450); RED BLOOD COUNT 2.67 10^6/uL (4.00-5.40); WHITE BLOOD COUNT 5.4 10^3/uL (4.0-10.0)
[2023-07-09 11:10] LABS: BLOOD UREA NITROGEN 18 MG/DL (9-23); CALCIUM LEVEL 8.5 MG/DL (8.3-10.6); CARBON DIOXIDE LEVEL 33 MMOL/L (20-31); CHLORIDE LEVEL 92 MMOL/L (98-107); CREATININE FOR GFR 0.74 MG/DL (0.55-1.30); GLOMERULAR FILTRATION RATE > 60.0 (>32); GLUCOSE, FASTING 107 MG/DL (74-106); MAGNESIUM LEVEL 1.7 MG/DL (1.8-2.4); POTASSIUM SERUM 4.5 MMOL/L (3.5-5.1); SODIUM LEVEL 129 MMOL/L (136-145)
== END ==
PROVIDERS: ATTEND Physician Assistant
DX: I48.91 Unspecified atrial fibrillation (principal)

== ENCOUNTER → 2023-07-16 | Outpatient (REF) ==
[2023-07-16 10:43] LABS: HEMATOCRIT 28.7 % (36.0-47.0); HEMOGLOBIN 9.6 g/dl (12.0-15.5); MEAN CORPUSCULAR HEMOGLOBIN 34.9 pg (27.0-33.0); MEAN CORPUSCULAR HGB CONC 33.4 g/dl (32.0-36.5); MEAN CORPUSCULAR VOLUME 104.4 fl (80.0-96.0); PLATELET COUNT, AUTOMATED 196 10^3/uL (150-450); RED BLOOD COUNT 2.75 10^6/uL (4.00-5.40); WHITE BLOOD COUNT 4.9 10^3/uL (4.0-10.0)
[2023-07-16 11:10] LABS: BLOOD UREA NITROGEN 18 MG/DL (9-23); CALCIUM LEVEL 8.7 MG/DL (8.3-10.6); CARBON DIOXIDE LEVEL 30 MMOL/L (20-31); CHLORIDE LEVEL 95 MMOL/L (98-107); CREATININE FOR GFR 0.78 MG/DL (0.55-1.30); GLOMERULAR FILTRATION RATE > 60.0 (>32); GLUCOSE, FASTING 116 MG/DL (74-106); MAGNESIUM LEVEL 1.5 MG/DL (1.8-2.4); POTASSIUM SERUM 4.4 MMOL/L (3.5-5.1); SODIUM LEVEL 130 MMOL/L (136-145)
[2023-07-16 11:12] LABS: THYROID STIMULATING HORMONE 2.858 uIU/ML (0.55-4.78)
== END ==
PROVIDERS: ATTEND Physician Assistant
DX: I48.91 Unspecified atrial fibrillation (principal)

== ENCOUNTER → 2023-07-22 | Outpatient (REF) ==
[2023-07-22 14:52] LABS: HEMATOCRIT 30.1 % (36.0-47.0); HEMOGLOBIN 10.1 g/dl (12.0-15.5); MEAN CORPUSCULAR HEMOGLOBIN 34.4 pg (27.0-33.0); MEAN CORPUSCULAR HGB CONC 33.6 g/dl (32.0-36.5); MEAN CORPUSCULAR VOLUME 102.4 fl (80.0-96.0); PLATELET COUNT, AUTOMATED 260 10^3/uL (150-450); RED BLOOD COUNT 2.94 10^6/uL (4.00-5.40); WHITE BLOOD COUNT 5.5 10^3/uL (4.0-10.0)
[2023-07-22 15:14] LABS: BLOOD UREA NITROGEN 18 MG/DL (9-23); CALCIUM LEVEL 8.8 MG/DL (8.3-10.6); CARBON DIOXIDE LEVEL 31 MMOL/L (20-31); CHLORIDE LEVEL 91 MMOL/L (98-107); CREATININE FOR GFR 0.72 MG/DL (0.55-1.30); GLOMERULAR FILTRATION RATE > 60.0 (>32); GLUCOSE, FASTING 90 MG/DL (74-106); POTASSIUM SERUM 5.3 MMOL/L (3.5-5.1); SODIUM LEVEL 128 MMOL/L (136-145)
== END ==
PROVIDERS: ATTEND Physician Assistant
DX: I50.9 Heart failure, unspecified (principal)

== ENCOUNTER → 2023-07-22 | Outpatient (REF) | payer MEDICARE, OTHER | PROVIDERS: ATTEND Internal Medicine | DX: I50.9 Heart failure, unspecified (principal); I70.0 Atherosclerosis of aorta ==

== ENCOUNTER → 2023-07-25 | Outpatient (REF) ==
[2023-07-25 10:02] LABS: HEMATOCRIT 30.4 % (36.0-47.0); MEAN CORPUSCULAR HEMOGLOBIN 33.9 pg (27.0-33.0); MEAN CORPUSCULAR HGB CONC 32.9 g/dl (32.0-36.5); MEAN CORPUSCULAR VOLUME 103.1 fl (80.0-96.0); PLATELET COUNT, AUTOMATED 256 10^3/uL (150-450); RED BLOOD COUNT 2.95 10^6/uL (4.00-5.40); WHITE BLOOD COUNT 4.2 10^3/uL (4.0-10.0)
[2023-07-25 10:36] LABS: CALCIUM LEVEL 8.9 MG/DL (8.3-10.6); CREATININE FOR GFR 0.98 MG/DL (0.55-1.30); GLOMERULAR FILTRATION RATE 57.3 (>32); POTASSIUM SERUM 3.8 MMOL/L (3.5-5.1)
== END ==
PROVIDERS: ATTEND Physician Assistant
DX: I50.9 Heart failure, unspecified (principal)

== ENCOUNTER → 2023-07-28 | Outpatient (REF) ==
[2023-07-28 11:36] LABS: HEMATOCRIT 31.2 % (36.0-47.0); MEAN CORPUSCULAR HEMOGLOBIN 32.9 pg (27.0-33.0); MEAN CORPUSCULAR HGB CONC 32.1 g/dl (32.0-36.5); MEAN CORPUSCULAR VOLUME 102.6 fl (80.0-96.0); PLATELET COUNT, AUTOMATED 264 10^3/uL (150-450); RED BLOOD COUNT 3.04 10^6/uL (4.00-5.40); WHITE BLOOD COUNT 5.3 10^3/uL (4.0-10.0)
[2023-07-28 12:01] LABS: BLOOD UREA NITROGEN 29 MG/DL (9-23); CALCIUM LEVEL 8.8 MG/DL (8.3-10.6); CARBON DIOXIDE LEVEL 33 MMOL/L (20-31); CHLORIDE LEVEL 92 MMOL/L (98-107); CREATININE FOR GFR 0.87 MG/DL (0.55-1.30); GLOMERULAR FILTRATION RATE > 60.0 (>32); GLUCOSE, FASTING 86 MG/DL (74-106); POTASSIUM SERUM 3.9 MMOL/L (3.5-5.1); SODIUM LEVEL 131 MMOL/L (136-145)
== END ==
PROVIDERS: ATTEND Physician Assistant
DX: I50.9 Heart failure, unspecified (principal)

== ENCOUNTER → 2023-08-05 | Outpatient (REF) | PROVIDERS: ATTEND Internal Medicine | DX: I50.9 Heart failure, unspecified (principal) ==

== ENCOUNTER → 2023-08-06 | Outpatient (REF) ==
[2023-08-06 11:53] LABS: HEMATOCRIT 31.8 % (36.0-47.0); HEMOGLOBIN 10.2 g/dl (12.0-15.5); MEAN CORPUSCULAR HEMOGLOBIN 32.4 pg (27.0-33.0); MEAN CORPUSCULAR HGB CONC 32.1 g/dl (32.0-36.5); PLATELET COUNT, AUTOMATED 221 10^3/uL (150-450); RED BLOOD COUNT 3.15 10^6/uL (4.00-5.40); WHITE BLOOD COUNT 5.7 10^3/uL (4.0-10.0)
[2023-08-06 12:20] LABS: BLOOD UREA NITROGEN 30 MG/DL (9-23); CALCIUM LEVEL 9.1 MG/DL (8.3-10.6); CARBON DIOXIDE LEVEL 36 MMOL/L (20-31); CHLORIDE LEVEL 92 MMOL/L (98-107); CREATININE FOR GFR 0.93 MG/DL (0.55-1.30); GLOMERULAR FILTRATION RATE > 60.0 (>32); GLUCOSE, FASTING 83 MG/DL (74-106); POTASSIUM SERUM 4.5 MMOL/L (3.5-5.1); SODIUM LEVEL 131 MMOL/L (136-145)
== END ==
PROVIDERS: ATTEND Physician Assistant
DX: R53.1 Weakness (principal)

== ENCOUNTER → 2023-08-11 | Outpatient (REF) ==
[2023-08-11 11:26] LABS: HEMATOCRIT 27.8 % (36.0-47.0); MEAN CORPUSCULAR HEMOGLOBIN 32.4 pg (27.0-33.0); MEAN CORPUSCULAR HGB CONC 32.4 g/dl (32.0-36.5); PLATELET COUNT, AUTOMATED 191 10^3/uL (150-450); RED BLOOD COUNT 2.78 10^6/uL (4.00-5.40); WHITE BLOOD COUNT 4.6 10^3/uL (4.0-10.0)
[2023-08-11 12:03] LABS: BLOOD UREA NITROGEN 31 MG/DL (9-23); CALCIUM LEVEL 9.1 MG/DL (8.3-10.6); CARBON DIOXIDE LEVEL 35 MMOL/L (20-31); CHLORIDE LEVEL 95 MMOL/L (98-107); CREATININE FOR GFR 0.85 MG/DL (0.55-1.30); GLOMERULAR FILTRATION RATE > 60.0 (>32); GLUCOSE, FASTING 86 MG/DL (74-106); MAGNESIUM LEVEL 1.8 MG/DL (1.8-2.4); POTASSIUM SERUM 4.6 MMOL/L (3.5-5.1); SODIUM LEVEL 132 MMOL/L (136-145)
== END ==
PROVIDERS: ATTEND Physician Assistant
DX: I48.91 Unspecified atrial fibrillation (principal)

== ENCOUNTER → 2023-09-17 | Outpatient (CLI) | payer MEDICARE, OTHER | LOC: M RAD 10:12 | PROVIDERS: ATTEND Neurological Surgery | DX: S06.5XAA Traumatic subdural hemorrhage with loss of consciousness status unknown, initial encounter (principal); Y93.9 Activity, unspecified; Y92.9 Unspecified place or not applicable ==

== ENCOUNTER 2024-04-07 16:20 | Emergency (ER) | payer MEDICARE, OTHER ==
[~2024-04-07] VITALS: Ht 149.9 cm; Wt 42.6 kg
[2024-04-07 16:30] VITALS: TEMP 97.3
[2024-04-07 19:19] VITALS: BP 110/56; O2SAT 96
== END 2024-04-07 19:22 | disposition home or self-care (01) ==
LOC: M ED 16:20
DX: S81.811A Laceration without foreign body, right lower leg, initial encounter (principal); S81.802A Unspecified open wound, left lower leg, initial encounter; X58.XXXA Exposure to other specified factors, initial encounter; Y92.538 Other ambulatory health services establishments as the place of occurrence of the external cause; Y93.89 Activity, other specified; Y99.9 Unspecified external cause status; I48.91 Unspecified atrial fibrillation; I10 Essential (primary) hypertension; E03.9 Hypothyroidism, unspecified; Z79.82 Long term (current) use of aspirin; Z79.899 Other long term (current) drug therapy; Z88.5 Allergy status to narcotic agent; Z88.8 Allergy status to other drugs, medicaments and biological substances; Z91.018 Allergy to other foods

== ENCOUNTER → 2024-05-05 | Outpatient (CLI) | payer MEDICARE, OTHER ==
[2024-05-05 17:03] LABS: BLOOD UREA NITROGEN 12 MG/DL (9-23); CALCIUM LEVEL 8.9 MG/DL (8.3-10.6); CARBON DIOXIDE LEVEL 35 MMOL/L (20-31); CHLORIDE LEVEL 97 MMOL/L (98-107); CREATININE FOR GFR 0.87 MG/DL (0.55-1.30); GLOMERULAR FILTRATION RATE > 60.0 (>32); GLUCOSE, FASTING 92 MG/DL (74-106); IRON (FE) 91 UG/DL (50-170); PERCENT SATURATION 31.9 % (13.2-45.0); POTASSIUM SERUM 3.9 MMOL/L (3.5-5.1); SODIUM LEVEL 140 MMOL/L (136-145); TOTAL IRON BINDING CAPACITY 285 UG/DL (250-425)
[2024-05-05 17:05] LABS: THYROID STIMULATING HORMONE 2.159 uIU/ML (0.55-4.78)
[2024-05-05 17:06] LABS: BASO % 0.9 % (0.0-1.0); EOS # 0.1 10^3/uL (0.0-0.5); EOS % 1.5 % (0.0-3.0); FERRITIN 23.7 NG/ML (7.3-270.7); HEMATOCRIT 38.6 % (36.0-47.0); HEMOGLOBIN 12.8 g/dl (12.0-15.5); LYMPH # 1.5 10^3/uL (1.5-5.0); LYMPH % 31.7 % (24.0-44.0); MEAN CORPUSCULAR HEMOGLOBIN 36.7 pg (27.0-33.0); MEAN CORPUSCULAR HGB CONC 33.2 g/dl (32.0-36.5); MEAN CORPUSCULAR VOLUME 110.6 fl (80.0-96.0); MONO # 0.4 10^3/uL (0.0-0.8); MONO % 8.8 % (2.0-8.0); NEUTROPHILS # 2.6 10^3/uL (1.5-8.5); NEUTROPHILS % 56.7 % (36.0-66.0); PLATELET COUNT, AUTOMATED 147 10^3/uL (150-450); RED BLOOD COUNT 3.49 10^6/uL (4.00-5.40); WHITE BLOOD COUNT 4.6 10^3/uL (4.0-10.0)
== END ==
LOC: M WUC 12:56
PROVIDERS: ATTEND Family Medicine
DX: E03.9 Hypothyroidism, unspecified (principal); D64.9 Anemia, unspecified

== ENCOUNTER 2024-06-06 10:40 | Emergency (ER) | payer MEDICARE, OTHER ==
[~2024-06-06] VITALS: Ht 149.9 cm; Wt 42.3 kg
[2024-06-06 10:45] VITALS: TEMP 98
[2024-06-06 12:51] LABS: BASO % 0.5 % (0.0-1.0); EOS # 0.1 10^3/uL (0.0-0.5); EOS % 1.4 % (0.0-3.0); HEMATOCRIT 37.6 % (36.0-47.0); HEMOGLOBIN 12.4 g/dl (12.0-15.5); LYMPH # 0.7 10^3/uL (1.5-5.0); LYMPH % 14.6 % (24.0-44.0); MEAN CORPUSCULAR HEMOGLOBIN 35.9 pg (27.0-33.0); MONO # 0.4 10^3/uL (0.0-0.8); MONO % 7.9 % (2.0-8.0); NEUTROPHILS # 3.4 10^3/uL (1.5-8.5); NEUTROPHILS % 75.4 % (36.0-66.0); PLATELET COUNT, AUTOMATED 110 10^3/uL (150-450); RED BLOOD COUNT 3.45 10^6/uL (4.00-5.40); WHITE BLOOD COUNT 4.4 10^3/uL (4.0-10.0)
[2024-06-06] MEDS: KETOROLAC 30 MG/ML 1ML VIAL IV ONE (14:48)
[2024-06-06 16:45] VITALS: BP 122/62; O2SAT 94
[2024-06-06] MEDS ORDERED: ACET-910 PO (16:58)
[2024-06-06] MEDS ORDERED: HYDR-3713 PO (16:58)
[2024-06-06] MEDS: NORCO 5/325MG TABLET (HOME DOSE PACK) PO ONE (17:16)
== END 2024-06-06 17:31 | disposition home or self-care (01) ==
LOC: M ED 10:40
DX: S20.211A Contusion of right front wall of thorax, initial encounter (principal); W19.XXXA Unspecified fall, initial encounter; Y92.009 Unspecified place in unspecified non-institutional (private) residence as the place of occurrence of the external cause; Y93.9 Activity, unspecified; Y99.9 Unspecified external cause status; I48.91 Unspecified atrial fibrillation; I25.84 Coronary atherosclerosis due to calcified coronary lesion; J43.9 Emphysema, unspecified; J47.9 Bronchiectasis, uncomplicated; K44.9 Diaphragmatic hernia without obstruction or gangrene; M47.812 Spondylosis without myelopathy or radiculopathy, cervical region; I10 Essential (primary) hypertension; E03.9 Hypothyroidism, unspecified; Z95.0 Presence of cardiac pacemaker
CPT/HCPCS: 70450; 71250; 72125; 80047; 85025; 96374; 99284; J1885

== ENCOUNTER 2024-11-18 15:49 | Inpatient (IN) | payer MEDICARE, OTHER ==
[~2024-11-18] VITALS: Ht 147.3 cm; Wt 39.0 kg
[~2024-11-18 15:49] MED LIST changes: +ACET-910 PO; +HYDR-3713 PO
[2024-11-18 18:36] LABS: BASO # 0.1 10^3/uL (0.0-0.2); BASO % 0.6 % (0.0-1.0); EOS # 0.0 10^3/uL (0.0-0.5); EOS % 0.4 % (0.0-3.0); LYMPH # 0.5 10^3/uL (1.5-5.0); LYMPH % 6.6 % (24.0-44.0); MONO # 0.8 10^3/uL (0.0-0.8); MONO % 9.8 % (2.0-8.0); NEUTROPHILS # 6.6 10^3/uL (1.5-8.5); NEUTROPHILS % 82.2 % (36.0-66.0); PLATELET COUNT, AUTOMATED 201 10^3/uL (150-450)
[2024-11-18 18:59] LABS: INR 1.01
[2024-11-18] MEDS: MORPHINE 2 MG/ML 1 ML VIAL IV ONE (19:27)
[2024-11-18 20:08] LABS: CALCIUM LEVEL 9.8 MG/DL (8.3-10.6); CARBON DIOXIDE LEVEL 37.0 MMOL/L (20-31); CHLORIDE LEVEL 92.0 MMOL/L (98-107); CREATININE FOR GFR 0.87 MG/DL (0.55-1.30); GLOMERULAR FILTRATION RATE 64.0 (>32); POTASSIUM SERUM 4.2 MMOL/L (3.5-5.1); SODIUM LEVEL 137.0 MMOL/L (136-145)
[2024-11-18] MEDS ORDERED: ACET-907 PO (21:18)
[2024-11-18] MEDS ORDERED: HOME MED LIST COMPLETE! XX SCH (21:25)
[2024-11-18] MEDS ORDERED: SENNA 8.6 MG TAB PO PRN (21:40)
[2024-11-19] VITALS: BP 142/63; TEMP 97.3; O2SAT 100
[2024-11-19 03:35] VITALS: BP 144/61; TEMP 96.9; O2SAT 100
[2024-11-19 06:16] LABS: PLATELET COUNT, AUTOMATED 157 10^3/uL (150-450)
[2024-11-19 06:40] LABS: ALT/SGPT 9.0 U/L (7.0-40); AST/SGOT 19.0 U/L (<34); CALCIUM LEVEL 9.6 MG/DL (8.3-10.6); CARBON DIOXIDE LEVEL 39.0 MMOL/L (20-31); CHLORIDE LEVEL 93.0 MMOL/L (98-107); CREATININE FOR GFR 0.86 MG/DL (0.55-1.30); GLOMERULAR FILTRATION RATE 64.9 (>32); POTASSIUM SERUM 4.0 MMOL/L (3.5-5.1); SODIUM LEVEL 138.0 MMOL/L (136-145)
[2024-11-19] MEDS ORDERED: CETIRIZINE 10 MG TAB PO PRN (07:45)
[2024-11-19] MEDS: LEVOTHYROXINE 50 MCG TABLET (0.05 MG) PO SCH (08:40)
[2024-11-19] MEDS: POTASSIUM CHLORIDE 10MEQ SR TABLET PO SCH (08:40)
[2024-11-19] MEDS: LIDOCAINE 5% PATCH TD ONE (10:49)
[2024-11-19 10:54] VITALS: BP_SYST 107; BP_SYST 109; BP_SYST 112; BP_DIAS 54; BP_DIAS 63; BP_DIAS 68
[2024-11-19 16:11] VITALS: BP 105/57; TEMP 97.3; O2SAT 92
[2024-11-20] VITALS (9 sets, daily range): BP systolic 97–124; BP diastolic 55–62; TEMP 97.3–98.2; O2SAT 92–94
[2024-11-20] MEDS: DIGOXIN 0.125 MG TAB PO SCH (08:35)
[2024-11-20] MEDS: APIXABAN 2.5 MG TAB PO SCH (10:55)
[2024-11-20] MEDS: ALPRAZolam 0.25 MG TAB PO PRN (22:43)
[2024-11-21] VITALS (7 sets, daily range): BP systolic 109–182; BP diastolic 59–87; TEMP 97.4–98.3; O2SAT 91–95
[2024-11-21 06:56] LABS: CALCIUM LEVEL 9.2 MG/DL (8.3-10.6); CARBON DIOXIDE LEVEL 35.0 MMOL/L (20-31); CHLORIDE LEVEL 92.0 MMOL/L (98-107); CREATININE FOR GFR 0.81 MG/DL (0.55-1.30); GLOMERULAR FILTRATION RATE 69.8 (>32); MAGNESIUM LEVEL 1.5 MG/DL (1.8-2.4); POTASSIUM SERUM 4.8 MMOL/L (3.5-5.1); SODIUM LEVEL 130.0 MMOL/L (136-145)
[2024-11-21] MEDS: BISACODYL 10 MG SUPP PR SCH (08:46)
[2024-11-21] MEDS: TORSEMIDE 20 MG TAB PO SCH (08:46)
[2024-11-21] MEDS: SENNOSIDES/DOCUSATE SODIUM 8.6 MG/50MG TAB PO SCH (08:46)
[2024-11-21] MEDS: MAG SULF 1GM/100ML (MAG RUN) 1 GM in IV 1 EA IV SCH (08:47)
[2024-11-21] MEDS: MAGNESIUM OXIDE 400 MG TAB PO SCH (11:01)
[2024-11-21 15:42] LABS: CALCIUM LEVEL 9.2 MG/DL (8.3-10.6); CARBON DIOXIDE LEVEL 36.0 MMOL/L (20-31); CHLORIDE LEVEL 88.0 MMOL/L (98-107); CREATININE FOR GFR 0.76 MG/DL (0.55-1.30); GLOMERULAR FILTRATION RATE 75.3 (>32); MAGNESIUM LEVEL 1.7 MG/DL (1.8-2.4); POTASSIUM SERUM 4.7 MMOL/L (3.5-5.1); SODIUM LEVEL 132.0 MMOL/L (136-145)
[2024-11-21] MEDS: ACETAMINOPHEN *IV* 1,000 MG in IV 1 EA IV ONE (21:21)
[2024-11-22 03:20] VITALS: BP 124/64; TEMP 97.4; O2SAT 97
[2024-11-22 04:00] VITALS: BP 124/64; TEMP 97.4; O2SAT 97
[2024-11-22 06:26] LABS: CALCIUM LEVEL 9.1 MG/DL (8.3-10.6); CARBON DIOXIDE LEVEL > 40.0 MMOL/L (20-31); CHLORIDE LEVEL 88 MMOL/L (98-107); CREATININE FOR GFR 0.89 MG/DL (0.55-1.30); GLOMERULAR FILTRATION RATE 62.3 (>32); MAGNESIUM LEVEL 2.0 MG/DL (1.8-2.4); POTASSIUM SERUM 4.3 MMOL/L (3.5-5.1); SODIUM LEVEL 134 MMOL/L (136-145)
[2024-11-22 06:45] VITALS: BP 136/72; TEMP 97; O2SAT 95
[2024-11-22 19:08] VITALS: BP 130/68; TEMP 97.6; O2SAT 96
[2024-11-22 22:30] VITALS: BP 118/58; TEMP 97.3; O2SAT 99
[2024-11-22] MEDS: ACETAMINOPHEN *IV* 500 MG in IV 1 EA IV ONE (22:33)
[2024-11-23 04:00] VITALS: BP 102/54; TEMP 97.5; O2SAT 97
[2024-11-23] MEDS: KETOROLAC 30 MG/ML 1 ML VIAL IV ONE (05:21)
[2024-11-23] MEDS: LIDOCAINE 5% PATCH TD SCH (05:22)
[2024-11-23 07:31] LABS: CALCIUM LEVEL 8.9 MG/DL (8.3-10.6); CARBON DIOXIDE LEVEL 39.0 MMOL/L (20-31); CHLORIDE LEVEL 88.0 MMOL/L (98-107); CREATININE FOR GFR 0.91 MG/DL (0.55-1.30); GLOMERULAR FILTRATION RATE 60.7 (>32); MAGNESIUM LEVEL 2.4 MG/DL (1.8-2.4); POTASSIUM SERUM 4.4 MMOL/L (3.5-5.1); SODIUM LEVEL 131.0 MMOL/L (136-145)
[2024-11-24 05:24] VITALS: BP 138/62
[2024-11-24 05:46] VITALS: TEMP 97.7; O2SAT 91
[2024-11-24 08:07] LABS: CALCIUM LEVEL 9.3 MG/DL (8.3-10.6); CARBON DIOXIDE LEVEL 37.0 MMOL/L (20-31); CHLORIDE LEVEL 88.0 MMOL/L (98-107); CREATININE FOR GFR 1.0 MG/DL (0.55-1.30); GLOMERULAR FILTRATION RATE 54.2 (>32); MAGNESIUM LEVEL 3.2 MG/DL (1.8-2.4); POTASSIUM SERUM 4.3 MMOL/L (3.5-5.1); SODIUM LEVEL 131.0 MMOL/L (136-145)
[2024-11-24] MEDS ORDERED: PERCOCET 5MG/325MG TAB PO PRN (12:05)
[2024-11-25 05:43] VITALS: BP 109/64; TEMP 97.3; O2SAT 96
[2024-11-25 08:51] VITALS: BP 101/62
[2024-11-25] MEDS: ACETAMINOPHEN 325 MG TAB PO PRN (08:55)
[2024-11-25 10:38] LABS: CALCIUM LEVEL 8.5 MG/DL (8.3-10.6); CARBON DIOXIDE LEVEL 35.0 MMOL/L (20-31); CHLORIDE LEVEL 90.0 MMOL/L (98-107); CREATININE FOR GFR 0.95 MG/DL (0.55-1.30); GLOMERULAR FILTRATION RATE 57.6 (>32); MAGNESIUM LEVEL 2.3 MG/DL (1.8-2.4); POTASSIUM SERUM 3.9 MMOL/L (3.5-5.1); SODIUM LEVEL 131.0 MMOL/L (136-145)
[2024-11-25] MEDS: SODIUM CHLORIDE 1 GM TAB PO SCH (20:57)
[2024-11-25] MEDS: RAMELTEON 8 MG TAB PO PRN (21:37)
[2024-11-26 06:27] VITALS: BP 122/62; TEMP 97.3; O2SAT 95
[2024-11-26] MEDS ORDERED: QUET1TAB17 PO (10:21)
[2024-11-26] MEDS ORDERED: RAME8TAB2 PO (10:21)
[2024-11-26 10:27] LABS: CALCIUM LEVEL 8.6 MG/DL (8.3-10.6); CARBON DIOXIDE LEVEL 36.0 MMOL/L (20-31); CHLORIDE LEVEL 91.0 MMOL/L (98-107); CREATININE FOR GFR 0.88 MG/DL (0.55-1.30); GLOMERULAR FILTRATION RATE 63.2 (>32); MAGNESIUM LEVEL 2.1 MG/DL (1.8-2.4); POTASSIUM SERUM 4.1 MMOL/L (3.5-5.1); SODIUM LEVEL 131.0 MMOL/L (136-145)
== END 2024-11-26 12:30 | DRG 200 ==
LOC: M ED 15:49 → M ED INP 21:31 → M PCU 23:30 → M MS5PR 11-22 22:07
PROVIDERS: ADMIT Student in an Organized Health Care Education/Training Program; ATTEND Internal Medicine
DX: S27.0XXA Traumatic pneumothorax, initial encounter (principal); S22.41XA Multiple fractures of ribs, right side, initial encounter for closed fracture; I50.32 Chronic diastolic (congestive) heart failure; E87.1 Hypo-osmolality and hyponatremia; I48.91 Unspecified atrial fibrillation; I11.0 Hypertensive heart disease with heart failure; M41.9 Scoliosis, unspecified; E83.41 Hypermagnesemia; M54.9 Dorsalgia, unspecified; G89.29 Other chronic pain; R29.6 Repeated falls; E03.9 Hypothyroidism, unspecified; R26.89 Other abnormalities of gait and mobility; S80.01XA Contusion of right knee, initial encounter; S70.01XA Contusion of right hip, initial encounter; W01.0XXA Fall on same level from slipping, tripping and stumbling without subsequent striking against object, initial encounter; Y92.009 Unspecified place in unspecified non-institutional (private) residence as the place of occurrence of the external cause; I49.5 Sick sinus syndrome; F41.9 Anxiety disorder, unspecified; Z90.49 Acquired absence of other specified parts of digestive tract; Z95.0 Presence of cardiac pacemaker; Z96.651 Presence of right artificial knee joint; Z96.611 Presence of right artificial shoulder joint; Z79.01 Long term (current) use of anticoagulants; Z79.890 Hormone replacement therapy; Z79.899 Other long term (current) drug therapy; Z88.5 Allergy status to narcotic agent; Z88.8 Allergy status to other drugs, medicaments and biological substances; Z91.018 Allergy to other foods; R19.7 Diarrhea, unspecified; T47.1X5A Adverse effect of other antacids and anti-gastric-secretion drugs, initial encounter

== ENCOUNTER → 2024-12-07 | Outpatient (REF) ==
[~2024-12-07] MED LIST changes: +ACET-907 PO; +QUET1TAB17 PO; +RAME8TAB2 PO
== END ==
PROVIDERS: ATTEND Physician Assistant
DX: J02.9 Acute pharyngitis, unspecified (principal)

== ENCOUNTER → 2024-12-08 | Outpatient (REF) ==
[2024-12-08 11:23] LABS: PLATELET COUNT, AUTOMATED 255 10^3/uL (150-450)
[2024-12-08 11:54] LABS: DIGOXIN LEVEL 0.5 NG/ML (0.8-2.0)
[2024-12-08 11:55] LABS: ALT/SGPT 14.0 U/L (7.0-40); AST/SGOT 21.0 U/L (<34); CALCIUM LEVEL 8.4 MG/DL (8.3-10.6); CARBON DIOXIDE LEVEL 37.0 MMOL/L (20-31); CHLORIDE LEVEL 81.0 MMOL/L (98-107); CREATININE FOR GFR 0.7 MG/DL (0.55-1.30); GLOMERULAR FILTRATION RATE 83.1 (>32); MAGNESIUM LEVEL 1.6 MG/DL (1.8-2.4); POTASSIUM SERUM 4.1 MMOL/L (3.5-5.1); SODIUM LEVEL 125.0 MMOL/L (136-145)
== END ==
PROVIDERS: ATTEND Internal Medicine
DX: I48.91 Unspecified atrial fibrillation (principal)

== ENCOUNTER → 2024-12-08 | Outpatient (REF) ==
[~2024-12-08] MED LIST changes: +ASPE4PAD TOP; +BENZ1LOZ9 MT; +BISA10SU PR; +DICL100G10 TOP; +FLEEENE12 PR; +MILKSUS3 PO; +MIRT1TAB PO; +MUCI60TA7 PO; +RA M10TA PO; +ROZE8TAB16 PO
== END ==
PROVIDERS: ATTEND Physician Assistant
DX: R06.02 Shortness of breath (principal); I50.9 Heart failure, unspecified; K44.9 Diaphragmatic hernia without obstruction or gangrene; Z95.810 Presence of automatic (implantable) cardiac defibrillator

== ENCOUNTER 2024-12-12 09:59 | Observation (INO) | payer MEDICARE, OTHER ==
[~2024-12-12] VITALS: Ht 142.2 cm; Wt 43.4 kg
[~2024-12-12 09:59] MED LIST changes: -ASPE4PAD TOP; -BENZ1LOZ9 MT; -BISA10SU PR; -DICL100G10 TOP; -FLEEENE12 PR; -MILKSUS3 PO; -MIRT1TAB PO; -MUCI60TA7 PO; -RA M10TA PO; -ROZE8TAB16 PO
[2024-12-12 10:10] VITALS: TEMP 99.2
[2024-12-12] MEDS: IPRATROPIUM 0.5 MG/ALBUTEROL 2.5 MG INH SOL UD 3 ML NEB ONE (10:34)
[2024-12-12] MEDS: ALBUTEROL SULFATE 2.5 MG/0.5 ML INH CONCENTRATE NEB SOLN INH ONE (10:34)
[2024-12-12] MEDS ORDERED: ISOVUE-370 76% 100 ML VIAL As Ordered ONE (10:40)
[2024-12-12 10:43] LABS: BASO # 0.0 10^3/uL (0.0-0.2); BASO % 0.3 % (0.0-1.0); EOS # 0.0 10^3/uL (0.0-0.5); EOS % 0.0 % (0.0-3.0); LYMPH # 0.5 10^3/uL (1.5-5.0); LYMPH % 5.2 % (24.0-44.0); MONO # 0.7 10^3/uL (0.0-0.8); MONO % 7.1 % (2.0-8.0); NEUTROPHILS # 8.8 10^3/uL (1.5-8.5); NEUTROPHILS % 87.1 % (36.0-66.0); PLATELET COUNT, AUTOMATED 273 10^3/uL (150-450)
[2024-12-12 10:55] LABS: INR 1.01
[2024-12-12 11:01] LABS: ABG BASE EXCESS 11.3 (-2.0-2.0); ABG HCO3 43.5 MMOL/L (22.0-26.0); ABG O2 SATURATION 99.4 % (95.0-99.0); ABG PARTIAL PRESSURE O2 190.9 mmHg (75.0-100.0); ABG STANDARD HCO3 35.0 MMOL/L. (22.0-26.0); ABG TOTAL CO2 47.3 MMOL/L (23.0-31.0)
[2024-12-12 11:02] LABS: ABG PARTIAL PRESSURE CO2 123.6 mmHg (35.0-45.0); ABG pH (ARTERIAL) 7.164 UNITS (7.350-7.450)
[2024-12-12 11:05] LABS: CK-MB VALUE MASS 1.5 NG/ML (<3.6)
[2024-12-12 11:06] LABS: CPK CREATINE PHOSPHOKINASE 18 U/L (34-145); MB/CK RELATIVE INDEX 8.33 (< OR =4)
[2024-12-12 11:08] LABS: THYROXINE (T4) 8.0 UG/DL (4.5-10.9)
[2024-12-12 11:16] LABS: ALT/SGPT 14 U/L (7.0-40); AST/SGOT 20 U/L (<34); CALCIUM LEVEL 9.0 MG/DL (8.3-10.6); CARBON DIOXIDE LEVEL > 40.0 MMOL/L (20-31); CHLORIDE LEVEL 87 MMOL/L (98-107); CREATININE FOR GFR 0.93 MG/DL (0.55-1.30); GLOMERULAR FILTRATION RATE 59.1 (>32); POTASSIUM SERUM 4.3 MMOL/L (3.5-5.1); SODIUM LEVEL 136 MMOL/L (136-145)
[2024-12-12] MEDS: MAG SULF 1GM/100ML (MAG RUN) 1 GM in IV 1 EA IV ONE (11:17)
[2024-12-12] MEDS: CEFEPIME HCL 2 GM in DEXTROSE 5% (D5W) ADV/MINI-BAG 50 ML IV ONE (11:50)
[2024-12-12] MEDS: DOXYCYCLINE HYCLATE 100 MG in DEXTROSE 5% (D5W) MINI-BAG PLU 100 ML IV ONE (11:53)
[2024-12-12] MEDS ORDERED: IPRATROPIUM 0.5 MG/ALBUTEROL 2.5 MG INH SOL UD 3 ML NEB PRN (12:10)
[2024-12-12] MEDS ORDERED: MAG SULF 1GM/100ML (MAG RUN) 1 GM in IV 1 EA IV ONE (12:15)
[2024-12-12 12:18] LABS: CK-MB VALUE MASS < 1.0 NG/ML (<3.6)
[2024-12-12 12:27] LABS: CPK CREATINE PHOSPHOKINASE 19 U/L (34-145)
[2024-12-12 14:19] VITALS: BP 108/55; O2SAT 94
[2024-12-12] MEDS ORDERED: FLEET ENEMA PR PRN (15:00)
[2024-12-12] MEDS ORDERED: BISACODYL 10 MG SUPP PR PRN (15:00)
[2024-12-12] MEDS ORDERED: MORPHINE 10 MG/0.5 ML ORAL CONCENTRATE SOLUTION U/D SL PRN (15:00)
[2024-12-12] MEDS ORDERED: ATROPINE SULFATE 1% OPHTH SOLN 2 ML BTL SL PRN (15:00)
[2024-12-12] MEDS ORDERED: ONDANSETRON 4MG/2ML VIAL IV PRN (15:00)
[2024-12-12] MEDS: MORPHINE 4 MG/ML 1 ML VIAL IV PRN (15:32)
[2024-12-12] MEDS ORDERED: IPRATROPIUM 0.5 MG/ALBUTEROL 2.5 MG INH SOL UD 3 ML NEB SCH (16:00)
[2024-12-13] MEDS ORDERED: CEFEPIME HCL 1 GM in DEXTROSE 5% (D5W) ADV/MINI-BAG 50 ML IV SCH
[2024-12-13] MEDS ORDERED: CEFEPIME HCL 2 GM in DEXTROSE 5% (D5W) ADV/MINI-BAG 50 ML IV SCH
[2024-12-13] MEDS ORDERED: QUET1TAB17 PO (09:54)
[2024-12-13] MEDS ORDERED: ROZE8TAB16 PO (09:54)
[2024-12-13] MEDS ORDERED: DICL100G10 TOP (09:54)
[2024-12-13] MEDS ORDERED: ASPE4PAD TOP (09:54)
[2024-12-13] MEDS ORDERED: FLEEENE12 PR (09:54)
[2024-12-13] MEDS ORDERED: MILKSUS3 PO (09:54)
[2024-12-13] MEDS ORDERED: BISA10SU PR (09:54)
[2024-12-13] MEDS ORDERED: MUCI60TA7 PO (09:54)
[2024-12-13] MEDS ORDERED: BENZ1LOZ9 MT (09:54)
[2024-12-13] MEDS ORDERED: MIRT1TAB PO (09:54)
[2024-12-13] MEDS ORDERED: RA M10TA PO (09:54)
[2024-12-13] MEDS ORDERED: HOME MED LIST COMPLETE! XX SCH (09:55)
[2024-12-13] MEDS: SCOPOLAMINE 1MG TRANSDERMAL PATCH TOP PRN (11:49)
[2024-12-13] MEDS: HYOSCYAMINE SULFATE 0.125 MG SUBL TABLET PO PRN (11:50)
== END 2024-12-13 13:17 | disposition expired ==
LOC: M ED 09:59 → M ED INP 10:00 → UNDOADMOB 11:42 → INTOOBSV 11:42 → M MSPAV 14:19 → M ED INP 14:19 → M MSPAV 14:19 → INTOOBSV 12-13 13:22 → OBSVTOIN 12-13 13:22 → UNDODISIN 12-13 13:23
PROVIDERS: ADMIT General Practice; ATTEND General Practice
DX: J96.01 Acute respiratory failure with hypoxia (principal); G93.41 Metabolic encephalopathy; J15.69 Pneumonia due to other Gram-negative bacteria; J98.11 Atelectasis; E87.1 Hypo-osmolality and hyponatremia; I50.32 Chronic diastolic (congestive) heart failure; E87.4 Mixed disorder of acid-base balance; Z66 Do not resuscitate; R29.6 Repeated falls; I48.91 Unspecified atrial fibrillation; I11.0 Hypertensive heart disease with heart failure; E03.9 Hypothyroidism, unspecified; G89.29 Other chronic pain; G47.33 Obstructive sleep apnea (adult) (pediatric); K58.9 Irritable bowel syndrome, unspecified; M54.50 Low back pain, unspecified; F41.9 Anxiety disorder, unspecified; J96.02 Acute respiratory failure with hypercapnia; E83.41 Hypermagnesemia; Z95.0 Presence of cardiac pacemaker; E86.0 Dehydration; Z96.611 Presence of right artificial shoulder joint; Z96.651 Presence of right artificial knee joint; Z79.01 Long term (current) use of anticoagulants; Z79.890 Hormone replacement therapy; Z79.899 Other long term (current) drug therapy; Z88.5 Allergy status to narcotic agent; Z88.8 Allergy status to other drugs, medicaments and biological substances; Z91.018 Allergy to other foods
CPT/HCPCS: 36600; 71045; 80047; 80048; 80076; 82550; 82553; 82803; 83605; 83735; 83880; 84145; 84436; 84443; 84484; 85025; 85610; 85730; 86850; 86900; 86901; 87040; 87486; 87581; 87633; 87798; 93005; 93041; 94640; 94760; 96365; 96375; 96376; 99285; G0378; J0692; J1271; J2060; J2919; J3475